=== PATIENT | female | born 1945 | race Caucasian/White ===

== ENCOUNTER 2016-08-02 17:08 | Inpatient (IN) | payer OTHER ==
[~2016-08-02] VITALS: Ht 152.4 cm; Wt 72.6 kg
[~2016-08-02 17:08] MED LIST: ALBUTEROL0.09 MG/A1 INH; COZAAR100 M1 PO; CRESTOR20 M2 PO; DILTIAZEM 24HR240 MG PO; FUROSEMIDE40 M1 PO; GLUCOPHAGE850 MG PO; LOPRESSOR50 M1 PO; METHIMAZOLE5 M1 PO; SYMBICORT 160/41 PUF IH; TESSALON PERLE100 MG PO; VITAMIN B11000 MCG/M PO; XARELTO20 M2 PO; ZITHROMAX Z-PA250 M1 PO
--- NOTE | 2016-08-02 17:09 | NUR ---
INFORMED WAITING PERFORMED.
--- NOTE | 2016-08-02 17:43 | NUR ---
PT TO TRIAGE WITH C/O DRY COUGH, HEADACHE, CONGESTIONS, CHEST TIGHTNESS WHEN COUGHING 04/04, SOB FOR 2 DAYS. TEMP 102.0 IN TRIAGE. O2SAT 88% ON RA. PT PLACED ON O2 NC 2L WITH O2SAT IMPROVEMENT 91%. PT MEDICATED WITH TYLENOL 650MG PO IN TRIAGE AND BROUGHT TO [facility] FOR EKG AND BLOOD WORK. HX OF HTN,DIABETES,BRONCHITIS.
--- NOTE | 2016-08-02 17:56 | NUR ---
EKG AND LABS DONE IN [place] (BLUE,SST,LAV,CEJA, BC #1)
--- NOTE | 2016-08-02 18:01 | ED GENERAL ADULT ---
History of Present Illness General Chief Complaint: Upper Respiratory Sx/Fever Stated Complaint: COLD SXS Source: patient, family, old records Exam Limitations: language barrier Vital Signs & Intake/Output Vital Signs & Intake/Output Vital Signs Date Time Temp Pulse Resp B/P Pulse O2 O2 Flow FiO2 Ox Delivery Rate 08/03 1159 Nasal 1.0L Cannula 08/03 09 95 Nasal 2.0L Cannula 08/03 08 97.3 76 20 124/78 92 Nasal 2.0L Cannula 08/03 0000 Nasal 2.0L Cannula 08/02 2230 97.6 118 20 126/92 95 Nasal 2.0L Cannula 08/02 2210 94 Nasal 2.0L Cannula 08/02 2042 97.6 105 16 123/75 95 Nasal 2.0L Cannula 08/02 1914 99.3 101 16 153/79 95 Nasal 3.0L Cannula 08/02 1837 94 Nasal 2.0L Cannula 08/02 1831 98.7 113 20 179/87 90 Nasal 3.0L Cannula 08/02 1820 95 Nasal 2.0L Cannula 08/02 1745 102.0 08/02 1737 102.0 106 24 159/91 88 Room Air ED Intake and Output 08/03 0000 08/02 1200 Intake Total 300 Output Total Balance 300 Intake, Oral 300 Patient 160 lb Weight Allergies Coded Allergies: NO KNOWN ALLERGIES (06/13/14) Triage Note: PT TO TRIAGE WITH C/O DRY COUGH, HEADACHE, CONGESTIONS, CHEST TIGHTNESS WHEN COUGHING 04/04, SOB FOR 2 DAYS. TEMP 102.0 IN TRIAGE. O2SAT 88% ON RA. PT PLACED ON O2 NC 2L WITH O2SAT IMPROVEMENT 91%. PT MEDICATED WITH TYLENOL 650MG PO IN TRIAGE AND BROUGHT TO [place] FOR EKG AND BLOOD WORK. HX OF HTN,DIABETES,BRONCHITIS. Triage Nurses Notes Reviewed? yes HPI: Patient is a 71-year-old female brought in by her family for evaluation of cough , shortness of breath, fevers. Symptoms 2 days. Cough is nonproductive. Fever of 101F at home. Patient reportedly received her influenza vaccination. Chest tightness with cough. Positive dyspnea. Denies sick contacts, abdominal pain, nausea, vomiting. (DE SÁNCHEZ,MAX) Reconcile Medications Albuterol Sulfate (Proair Hfa) 90 MCG HFA.AER.AD 2 PUF INH Q4H PRN SOB/ WHEEZING (Reported) Alendronate Sodium (Fosamax) 70 MG TABLET 1 TAB PO QWED BONES (Reported) in the morning, at least 30 minutes before the first food, beverage, or medication of the day Diltiazem HCl (Diltiazem 24HR ER) 240 MG CAP.ER.24H 1 CAP PO DAILY HEART/BP ( Reported) Ergocalciferol (Vitamin D2) (Vitamin D2) 50,000 UNIT CAPSULE 1 CAP PO QFRI SUPPLEMENT (Reported) Fluticasone Propionate (Flovent Hfa) 220 MCG AER.W.ADAP 1 PUFF INH BID RESPIRATORY (Reported) Furosemide 40 MG TABLET 1 TAB PO DAILY DIURETIC (Reported) Losartan (Cozaar) 100 MG TABLET 1 TAB PO QHS BP (Reported) Metformin HCl 500 MG TABLET 1 TAB PO BID DM (Reported) Methimazole 5 MG TABLET 1 TAB PO DAILY THYROID (Reported) Metoprolol Tartrate (Lopressor) 50 MG TABLET 1.5 TAB PO BID HEART/BP ( Reported) Rivaroxaban (Xarelto) 20 MG TABLET 1 TAB PO DAILY BLOOD THINNER (Reported) with food Rosuvastatin Calcium (Crestor) 20 MG TABLET 1 TAB PO QPM CHOLESTEROL ( Reported) (CALLI GRIMES,RIAZ) Past History Travel History Traveled to [place] past 21 day No Medical History Any Pertinent Medical History? 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 No (DE SÁNCHEZ,MAX) Review of Systems Review of Systems Constitutional: Reports: chills, fever, malaise. EENTM: Reports: no symptoms. Respiratory: Reports: see HPI. Cardiovascular: Reports: chest pain (with cough). GI: Denies: abdominal pain, nausea, vomiting. Musculoskeletal: Reports: no symptoms. Skin: Denies: rash. Neurological/Psychological: Reports: no symptoms. Denies: headache. Hematologic/Endocrine: Denies: bruising, bleeding. Immunologic/Allergic: Denies: splenectomy. (MAX CONNELLY) Physical Exam Physical Exam General Appearance: alert, awake Head: atraumatic, normal appearance Eyes: Bilateral: normal appearance. Ears, Nose, Throat: normal pharynx, normal ENT inspection, hearing grossly normal Neck: normal inspection, supple, full range of motion Respiratory: diffuse moderate expiratory wheezing. Bibasilar rhonchi. Cardiovascular: tachycardia, irregularly irregular Peripheral Pulses: 2+ dorsalis pedis (R), 2+ dorsalis pedis (L) Gastrointestinal: soft, non-tender Back: normal inspection, normal range of motion Extremities: normal inspection, normal capillary refill, normal range of motion, no edema Neurologic/Psych: no motor/sensory deficits, awake, alert, oriented x 3, normal mood/affect Skin: intact, normal color, warm/dry Lymphatic: no anterior cervical kina Core Measures ACS in differential dx? No CVA/TIA Diagnosis: No Severe Sepsis Present: No Septic Shock Present: No (MAX CONNELLY) Progress Differential Diagnoses I considered the following diagnoses in my evaluation of the patient: Pneumonia, bronchitis, sepsis Plan of Care: Orders Procedure Date/time Status Consistent Carbohydrate 3 08/04 B Active CBC WITHOUT DIFFERENTIAL 08/04 599 Active BASIC ELECTROLYTES PLUS BUN&CR 08/04 599 Active Heart Healthy Diet 08/03 B Active RT: Reevaluation 08/03 843 Active RT: Evaluation 08/03 843 Active TRC EVALUATION (GEN) 08/03 9 Complete Saline Lock 08/03 9 Active Pathway - chart 08/03 9 Active House Staff 08/03 9 Active VTE Mechanical Prophylaxis 08/03 9 Active Vital Signs 08/03 9 Complete CULTURE,URINE 08/03 9 Active STREP PNEUMO URINARY ANTIGEN 08/03 9 Active LEGIONELLA URINARY ANTIGEN 08/03 9 Active LOWER RESPIRATORY CULTURE 08/03 9 Active URINALYSIS 08/03 9 Complete Code Status 08/03 9 Active THERAPIST ORDERS 08/03 UNK Complete OXYGEN SETUP (GEN) 08/03 UNK Complete Lab Add-on Test 08/03 UNK Active PHARMACY COMMUNICATION FORM 08/03 UNK Active FingerStick- Glucose 08/02 2228 Active Vital Signs 08/02 2199 Active Teach/Educate 08/02 2199 Active Nutritional Intake, Monitor 08/02 2199 Active Isolation 08/02 2199 Active Intake & Output 08/02 2199 Active Patient Care Conference 08/02 2199 Active Activity/Ambulation 08/02 2199 Active LACTIC ACID 08/02 2044 Complete Patient Data 08/02 1916 Active Admit to inpatient 08/02 1915 Active Vital Signs 08/02 1915 Active Code Status 08/02 1915 Complete Intake & Output 08/02 1824 Active BLOOD CULTURE 08/02 1810 Active VIRAL CULTURE 08/02 180 Active RAPID VIRAL INFLUENZA A 08/02 1800 Complete THYROID STIMULATING HORMONE 08/02 1745 Complete TOTAL IRON BINDING CAPACITY 08/02 1745 Complete THYROXINE 08/02 1745 Complete FERRITIN 08/02 1745 Complete SERUM IRON 08/02 1745 Complete BLOOD CULTURE 08/02 1744 Active LACTIC ACID 08/02 1744 Complete COMPREHENSIVE METABOLIC PANEL 08/02 1744 Complete CBC WITHOUT DIFFERENTIAL 08/02 174 Complete EKG 08/02 174 Active Current Medications Sig/Diana Start time Last Medication Dose Stop Time Status Admin Alendronate Sodium 70 MG QWED 08/05 0700 AC (Fosamax) Azithromycin 500 MG 08/03 AC (Zithromax) Sodium Chloride 250 ML (Normal Saline 0.9%) Ceftriaxone Sodium 1,000 MG 19308/03 193 AC (Rocephin) Atorvastatin Calcium 80 MG 17008/03 170 AC (Lipitor) Fluticasone 1 PUF BID 08/03 1000 AC Propionate (Flovent) Ibuprofen 600 MG Q6P PRN 08/03 0015 AC (Motrin) Laboratory Tests 08/03/16 0840: Urinalysis LIGHT H, Urine Color YEL, Urine Clarity HAZY H, Urine pH 6.0, Ur Specific Thayer >= 1.030, Urine Protein TRACE H, Urine Ketones NEG, Urine Nitrite NEG, Urine Bilirubin NEG, Urine Urobilinogen 0.2, Ur Leukocyte Esterase NEG, Ur Microscopic SEDIMENT EXAMINED, Urine RBC 1-3, Urine WBC RARE, Ur Epithelial Cells MOD H, Hyaline Casts RARE H, Granular Casts RARE H, Urine Mucus MANY H, Urine Hemoglobin NEG, Urine Glucose >=1000 H 08/02/16 2051: Lactic Acid 1.5 08/02/161806: Virus Culture Pending 08/02/16 1745: Anion Gap 17 H, Estimated GFR > 60, BUN/Creatinine Ratio 16.7, Glucose 216 H, Lactic Acid 2.2 H, Calcium 9.5, Iron 24 L, TIBC 430, Ferritin 42.5, Total Bilirubin 0.4, AST 20, ALT 26, Alkaline Phosphatase 71, Total Protein 7.5, Albumin 4.3, Globulin 3.2, Albumin/Globulin Ratio 1.3, TSH 1.470, Thyroxine (T4) 7.9, CBC w Diff NO MAN DIFF REQ, RBC 5.96 H, MCV 66.3 L, MCH 20.8 L, RDW 14.7 H, MPV 8.3, Gran % 76.5 H, Lymphocytes % 14.6 L, Monocytes % 8.2, Eosinophils % 0.5, Basophils % 0.2, Absolute Granulocytes 4.8, Absolute Lymphocytes 0.9 L, Absolute Monocytes 0.5, Absolute Eosinophils 0, Absolute Basophils 0, PUBS MCHC 31.4 L Microbiology 08/03 839 URINE ROUT: Legionella Antigen - RES 08/03 839 URINE ROUT: Streptococcus pneumoniae Antigen (M - RES 08/03 839 URINE ROUT: Urine Culture - RES 08/03 9 LOWER RESP: Respiratory Culture - COLB 08/03 9 LOWER RESP: Gram Stain - COLB 08/02 1814 BLOOD: Blood Culture - RES 08/02 174 BLOOD: Blood Culture - RES Discussed with and seen by Dr. Elmore. Clinically consistent with pneumonia. IV antibiotics ordered with x-ray pending. 1850: Mild improvement in breathing. Discussed results with patient and her family and disposition. Discussed with Dr. Peraza for admission to general medicine (DE SÁNCHEZ,MAX) Diagnostic Imaging: Viewed by Me: Radiology Read. Discussed w/RAD: Radiology Read. Radiology Impression: PATIENT: MEGHA NDIAYE PRESENT AGE: 71 PATIENT ACCOUNT NO: [id number] : 46 LOCATION: [facility] ORDERING PHYSICIAN: MAX SÁNCHEZ SERVICE DATE: 08/02/16 EXAM TYPE: RAD - XRY-PORTABLE CHEST XRAY EXAMINATION: XR PORTABLE CHEST CLINICAL INFORMATION: Cough, dyspnea, fever and rhonchi COMPARISON: 10/22/2015 TECHNIQUE: This is a portable upright view of the chest somewhat degraded by motion artifact. FINDINGS: There is an ill-defined patchy opacity at the left base. This is consistent with pneumonia given the history provided. Short interval follow-up is required to assure resolution. Stable prominence of the cardiac silhouette. IMPRESSION: Patchy opacity at the left lung base suspicious for pneumonia DICTATED BY: KENN ESPINAL MD DATE/TIME DICTATED:08/02/161855 AUDIO VISUAL TECHNICIAN: JANA DATE/TIME TRANSCRIBED:08/02/161855 CONFIDENTIAL, DO NOT COPY WITHOUT APPROPRIATE AUTHORIZATION. <Electronically signed in Other Vendor System> SIGNED BY: KENN ESPINAL MD 08/02/16 190 Initial ED EKG: atrial fibrillation, with rvr Rhythm Strip: atrial fibrillation (MAX CONNELLY) Departure Departure Disposition: STILL A PATIENT Condition: Stable Clinical Impression Primary Impression: Community acquired pneumonia Referrals: MONIQUE JONES MD (PCP/Family) Departure Forms: Customer Survey General Discharge Information Admission Note Sp[facility] Documentation of Exam: Documentation of any treatments & extenuating circumstances including Concerns Regarding Discharge (functional status, medication knowledge or non-compliance, living conditions, etc.) that warrant an admission rather than observation: IV antibiotics, total respiratory care, supplemental oxygen, consider pulmonary consultation given history of pulmonary hypertension (MAX CONNELLY) PA/DIRECTOR FIXED INCOME Co-Sign Statement Statement: ED Attending supervision documentation- [X] I saw and evaluated the patient. I have also reviewed all the pertinent lab results and diagnostic results. I agree with the findings and the plan of care as documented in the PA's/DIRECTOR FIXED INCOME's documentation. [X] I have reviewed the ED Record and agree with the PA's/DIRECTOR FIXED INCOME's documentation. [] Additions or exceptions (if any) to the PAs/DIRECTOR FIXED INCOME's note and plan are summarized below: [] (CALLI GRIMES,RIAZ) Critical Care Note Critical Care Note Critical Care Time: non-applicable (MAX CONNELLY)
[2016-08-02 18:03] LABS: ABSOLUTE BASOPHIL COUNT 0 /CUMM (0.0-0.2); ABSOLUTE EOSINOPHIL COUNT 0 /CUMM (0.0-0.7); ABSOLUTE GRANULOCYTE CT 4.8 /CUMM (1.4-6.5); ABSOLUTE LYMPH COUNT 0.9 /CUMM (1.2-3.4); ABSOLUTE MONOCYTE COUNT 0.5 /CUMM (0.10-0.60); BASOPHIL % 0.2 % (0.0-2.0); EOSINOPHIL % 0.5 % (0-5); GRANULOCYTE % 76.5 % (42.2-75.2); HEMATOCRIT 39.5 % (37-47); MEAN CORPUSCULAR HGB 20.8 PG (27.0-31.0); MEAN CORPUSCULAR HGB CONC 31.4 G/DL (33.0-37.0); MEAN CORPUSCULAR VOLUME 66.3 FL (81.0-99.0); MEAN PLATELET VOLUME 8.3 FL (7.4-10.4); PLATELET COUNT 185 /CUMM (130-400); RBC DISTRIBUTION WIDTH 14.7 % (11.5-14.5); RED BLOOD CELL CT 5.96 /CUMM (4.20-5.40); WHITE BLOOD CELL COUNT 6.2 /CUMM (4.8-10.8)
--- NOTE | 2016-08-02 18:23 | NUR ---
CRITICAL TEST RESULTS [id number] MEGHA NDIAYE 71 F TESTS AND RESULTS: LACTIC 2.2 Results received and read back by: TIM PEREZ Results received date and time: 08/02/161823 The following provider was notified of the results, and read the results back: PRINCESS KC Notified date and time: 08/02/16 at 1823
--- NOTE | 2016-08-02 18:23 | NUR ---
IV ESTABLISHED. CULTURES DRAWN AND SENT. MEDICATED WITH SOLUMEDROL PER eMAR. FLU SWAB ALSO SENT. RT AT BEDSIDE FOR DUONEB
--- NOTE | 2016-08-02 19:01 | RADIOLOGY REPORT ---
EXAMINATION: XR PORTABLE CHEST CLINICAL INFORMATION: Cough, dyspnea, fever and rhonchi COMPARISON: 10/22/2015 TECHNIQUE: This is a portable upright view of the chest somewhat degraded by motion artifact. FINDINGS: There is an ill-defined patchy opacity at the left base. This is consistent with pneumonia given the history provided. Short interval follow-up is required to assure resolution. Stable prominence of the cardiac silhouette. IMPRESSION: Patchy opacity at the left lung base suspicious for pneumonia
[2016-08-02] MEDS ORDERED: VITAMIN D250000 UNIT PO (19:15)
[2016-08-02] MEDS ORDERED: METFORMIN HCL500 M3 PO (19:16)
[2016-08-02] MEDS ORDERED: FLOVENT HFA12 GM INH (19:17)
[2016-08-02] MEDS ORDERED: FOSAMAX70 M1 PO (19:17)
[2016-08-02] MEDS ORDERED: PROAIR HFA8.5 GM INH (19:17)
--- NOTE | 2016-08-02 19:22 | NUR ---
ROCEPHIN TOLERATED. MEDICATED WITH ZITHRO GTT RUNNING AT 250ML/HR PER eMAR. NO ACUTE DISTRESS AT THIS TIME. TEMP IMPROVED 99.3 AT THIS TIME. PRINCESS KC TO BEDSIDE TO DISCUSS PLAN OF CARE
--- NOTE | 2016-08-02 20:54 | NUR ---
REPEAT LACTIC DRAWN AND SENT
--- NOTE | 2016-08-02 21:20 | History & Physical ---
VENICE UGALDE MD 08/02/162118: General Information and HPI MD Statement: I have seen and personally examined MEGHA NDIAYE and documented this H&P. The patient is a 71 year old F who presented with a patient stated chief complaint of [short of breath and fever]. Source of Information: patient, family Exam Limitations: no limitations, language barrier History of Present Illness: 71-year-old female with PMH of HTN, HLD, osteoporosis, DM, atrial fibrillation on xarelto, hyperthyroidism, presented with worsening shortness of breath and fever over the last 2 days. She has dry cough, headache, congestion, chest tightness when she coughs, rated as 9/10. Her temp was 101 at home. She also had chills, weakness, decreased appetite. As pt is non-tamazight speaking, I spoke to her son, Tr, over the phone, . He does not know why she is on the breathing treatment, and does not remember the casting assistant she follows up with. She follows up with Dr. Agatha Sanchez for cardiology. She lives at home with her son, daughter in law, and grandchildren. She does not have health services at home, and not on home oxygen. She is independent at baseline. Allergies/Medications Allergies: Coded Allergies: NO KNOWN ALLERGIES (06/13/14) Home Med list Albuterol Sulfate (Proair Hfa) 90 MCG HFA.AER.AD 2 PUF INH Q4H PRN SOB/ WHEEZING (Reported) Alendronate Sodium (Fosamax) 70 MG TABLET 1 TAB PO QWED BONES (Reported) in the morning, at least 30 minutes before the first food, beverage, or medication of the day Diltiazem HCl (Diltiazem 24HR ER) 240 MG CAP.ER.24H 1 CAP PO DAILY HEART/BP ( Reported) Ergocalciferol (Vitamin D2) (Vitamin D2) 50,000 UNIT CAPSULE 1 CAP PO QFRI SUPPLEMENT (Reported) Fluticasone Propionate (Flovent Hfa) 220 MCG AER.W.ADAP 1 PUFF INH BID RESPIRATORY (Reported) Furosemide 40 MG TABLET 1 TAB PO DAILY DIURETIC (Reported) Losartan (Cozaar) 100 MG TABLET 1 TAB PO QHS BP (Reported) Metformin HCl 500 MG TABLET 1 TAB PO BID DM (Reported) Methimazole 5 MG TABLET 1 TAB PO DAILY THYROID (Reported) Metoprolol Tartrate (Lopressor) 50 MG TABLET 1.5 TAB PO BID HEART/BP ( Reported) Rivaroxaban (Xarelto) 20 MG TABLET 1 TAB PO DAILY BLOOD THINNER (Reported) with food Rosuvastatin Calcium (Crestor) 20 MG TABLET 1 TAB PO QPM CHOLESTEROL ( Reported) Past History Travel History Traveled to [place] past 21 day No Medical History Neurological: NONE EENT: NONE Cardiovascular: AFIB, hypertension, hyperlipidemia Respiratory: bronchitis, pulmonary hypertension Gastrointestinal: NONE Hepatic: NONE Renal: NONE Musculoskeletal: NONE Psychiatric: NONE Endocrine: diabetes, hyperthyroidism Blood Disorders: NONE 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 Home Who Do You Live With? child Services at Home: None Primary Language: Mohawk Functional Ability ADLs Independent: dressing, eating, toileting, bathing. Ambulation: independent IADLs Independent: shopping, housework, finances, food prep, telephone, transportation , medication admin. Review of Systems Review of Systems Constitutional: Reports: chills, fever, weakness. Cardiovascular: Reports: chest pain. Respiratory: Reports: cough, short of breath. Denies: sputum production. GI: Denies: abdominal pain, bloating, constipation, diarrhea, nausea, vomiting. Genitourinary: Denies: dysuria. Exam & Diagnostic Data Last 24 Hrs of Vital Signs/I&O Vital Signs Date Time Temp Pulse Resp B/P Pulse O2 O2 Flow FiO2 Ox Delivery Rate 08/02 2229 97.6 118 20 126/92 95 Nasal 2.0L Cannula 08/02 2209 94 Nasal 2.0L Cannula 08/02 2041 97.6 105 16 123/75 95 Nasal 2.0L Cannula 08/02 1914 99.3 101 16 153/79 95 Nasal 3.0L Cannula 08/02 1837 94 Nasal 2.0L Cannula 08/02 183 98.7 113 20 179/87 90 Nasal 3.0L Cannula 08/02 1820 95 Nasal 2.0L Cannula 08/02 1745 102.0 08/02 1737 102.0 106 24 159/91 88 Room Air Intake & Output 08/03 0800 08/03 0000 08/02 1600 Intake Total 300 Output Total Balance 300 Intake, Oral 300 Patient 72.575 kg Weight Physical Exam General Appearance Alert, Oriented X3, Cooperative, No Acute Distress, diaphoretic Skin No Significant Lesion HEENT Atraumatic, PERRLA, EOMI, Mucous Membr. moist/pink Cardiovascular Regular Rate, No Murmurs, irregular rate, tachycardic Lungs Clear to Auscultation Abdomen Normal Bowel Sounds, Soft, No Tenderness Neurological Normal Speech Extremities No Edema Vascular Normal Pulses Last 24 Hrs of Labs/Mateusz: Laboratory Tests 08/02/162050: Lactic Acid 1.5 08/02/165: Anion Gap 17 H, Estimated GFR > 60, BUN/Creatinine Ratio 16.7, Glucose 216 H, Lactic Acid 2.2 H, Calcium 9.5, Total Bilirubin 0.4, AST 20, ALT 26, Alkaline Phosphatase 71, Total Protein 7.5, Albumin 4.3, Globulin 3.2, Albumin/Globulin Ratio 1.3, CBC w Diff NO MAN DIFF REQ, RBC 5.96 H, MCV 66.3 L, MCH 20.8 L, RDW 14.7 H, MPV 8.3, Gran % 76.5 H, Lymphocytes % 14.6 L, Monocytes % 8.2, Eosinophils % 0.5, Basophils % 0.2, Absolute Granulocytes 4.8, Absolute Lymphocytes 0.9 L, Absolute Monocytes 0.5, Absolute Eosinophils 0, Absolute Basophils 0, PUBS MCHC 31.4 L Microbiology 08/03 9 URINE ROUT: Legionella Antigen - ORD 08/03 9 URINE ROUT: Streptococcus pneumoniae Antigen (M - ORD 08/03 9 URINE ROUT: Urine Culture - ORD 08/03 9 LOWER RESP: Respiratory Culture - ORD 08/03 9 LOWER RESP: Gram Stain - ORD 08/02 181 BLOOD: Blood Culture - RECD 08/02 174 BLOOD: Blood Culture - RECD Diagnostic Data EKG Results atrial fibrillation,rate 104 CXR Results IMPRESSION: Patchy opacity at the left lung base suspicious for pneumonia Assessment/Plan Assessment: 71-year-old female with PMH of HTN, HLD, osteoporosis, DM, atrial fibrillation on xarelto, hyperthyroidism, presented with worsening shortness of breath and fever over the last 2 days. CXR shows patchy opacity at the left lung base suspicious for pneumonia. Admitted to , with the following problems addressed: # Left lung base pneumonia - Given 1 X ceftriaxone and azithromycin in the ED - Given 1 X solumedrol, atrovent, and proventil in ED * Continue azithromycin and ceftriaxone * Follow BCX2, sputum cx and gram stain, UA, UC, urine legionella, strep pneumo, rapid flu # HTN, atrial fibrillation * Continue diltiazem 240 ER daily * Continue metoprolol 75 bid * Continue losartan 100 daily * continue furosemide 40 daily * Continue xarelto # Osteoporosis * [place] [address] units q wednesday * Continue alendronate 70 q wed # Hyperlipidemia * Continue statin # Diabetes mellitus - on metformin at home * Accucheck * Consider checking hba1c * Insulin ss in the hospital # Hyperthyroidism * Consider checking tsh, ft4 * Continue methimazole Diet: CC 3 DVT ppx: mech and pharm FULL CODE Contact Tr, her son, at [phone] for questions or updates As Ranked By This Provider Problem List: 1. Community acquired pneumonia Core Measures/Miscellaneous Acute Coronary Syndrome ACS Diagnosis: No Cerebrovascular Accident CVA/TIA Diagnosis: No Congestive Heart Failure CHF Diagnosis: No Venous Thromboembolism VTE Risk Factors: Acute medical illness, Age > 40 VTE Prophylaxis Ordered Inpt: Mech & Pharm No Mech VTE prophylaxis d/t: No contraindications No VTE Pharm Prophylaxis d/t: No contraindications VTE Diagnosis: No VTE Type: NONE VTE Confirmed by (Test): NONE Severe Sepsis Severe Sepsis Present: No Septic Shock Septic Shock Present: No Miscellaneous Documentation Attending Case Discussed With: DAWSON PERAZA MD Primary Care Physician: MONIQUE JONES MD Patient sees these Specialists Dr Garcia cardiology Level of Patient Care: General Medicine ESPINOZA PERAZA MD 08/02/16 0728: Attending MD Review Statement Attending Statement Attending MD Statement: examined this patient, discuss w/resident/PA/LABORER YARD, agreed w/resident/PA/LABORER YARD Attending Assessment/Plan: 71 yo Mohawk speaking F with h/o HTN, asthma, T2DM, Afib s/p cardioversion on xarelto, pulmonary hypertension, is here with productive cough, fever, congestion and chest tightness. Limited history. She was hypoxic to 88% on RA ? 95% on 2L, Tmax 102, HR 118, BP stable. Chest left basilar rhonchi, no crackles. Labs: microcytosis disproportionate to Hct, no leukocytosis, AG 17, lactic acid 2.2 --> 1.5, CXR s/o patchy opacity left lung base. Echo (2013): EF > 55%, mod TR, RVSP 50 mmHg. EKG: Afib. 1. Acute hypoxic respiratory failure and sepsis 2/2 left lower lobe pneumonia likely community acquired. TRC nebs, panculture, rapid flu neg, IV ceftriaxone and azithro, IV fluids. 2. Microcytosis out of proportion to Hct (39): check iron studies, guaiac all stools. ?thalassemia. 3. Afib with HR in 110's. Resume cardizem and metoprolol. Check TSH, patient has h/o hyperthyroidism and is on methimazole. If persistently tachycardic, ? consider CTA to rule out PE. DVT ppx xarelto. Full code. Confirm CMR in AM. SURENDRAJIGNESH 08/03/16 0548: Resident Review Statement Resident Statement: examined this patient, discussed with internal audit manager, agreed with internal audit manager, discussed with family, reviewed EMR data (avail), reviewed images, amended to note Other Findings: This is 71-year-old female with past medical history hypertension, hyperlipidemia, diabetes mellitus, atrial fibrillation Xarelto, hypothyroidism, presented to emergency departments with a chief complaint of fever and productive cough that is associated with nasal congestion and chest tightness. We spoke to her son Tr, over the phone, also stated that her temperature at home was measured 101.0. He was asked to bring her medication list and we discussed the plan of care with him. Physical examination, laboratory as above. Problem list: -Community-acquired pneumonia -Lactic acidosis, anion gap acidosis -History of atrial fibrillation on Xarelto Plan: -Admit patient to general medicine floor -Vitals every shift -Start the patient on IV ceftriaxone and azithromycin -Send Streptococcus, Legionella urine antigen -Sputum and blood culture, urine analysis -Normal saline fluid hydration and 75 mg/h -TRC and nebs as needed -Accu-Chek, insulin sliding scale hold metformin -Carbohydrate consistent diet -Pain pathway -DVT prophylaxis: Xarelto -Full code
--- NOTE | 2016-08-02 21:23 | NUR ---
PT BED ASSIGNMENT 185-1
--- NOTE | 2016-08-02 21:47 | NUR ---
REPORT GIVEN TO RECEIVING RN AND DISTRIBUTION CALLED
[2016-08-02 22:30] VITALS: BP 126/92
--- NOTE | 2016-08-03 00:35 | Admission Certification ---
Admission Certification Certification Statement - As attending physician, I certify that at the time of - admission, based on clinical presentation, severity of - symptoms, need for further diagnostic testing and - therapeutic interventions, and risk of adverse outcomes - without in-hospital treatment, in my clinical assessment, - this patient requires an acute hospital stay for a minimum - of two nights or longer. I have also considered psychsocial - factors such as support system, advanced age, financial - issues, cognitive issues, and failed out-patient treatments, - past re-admission history, safety of patient, and lack of - compliance as applicable. Specific rationale supporting this admission is: Acute hypoxic respiratory failure, sepsis 2/2 left lower lobe pneumonia.
--- NOTE | 2016-08-03 07:47 | PN- Housestaff ---
ELISABETH HERNANDEZ 08/03/16 0747: Subjective Follow-up For: 1. acute Hypoxic respiratory failure secondary to left lower lobe pneumonia 2 macrocytosis. #3 history of atrial fibrillation. #4 history of hyperthyroidism Complaints: no complaints Subjective: I Have seen and examined the patient today morning, she is lying on the bed and complaining off bilateral abdominal pain, the pain is worse when she coughs, this pain most likely seems to be related to recurrent coughing, no abdominal tenderness, bowel sounds present. Vitals have remained stable overnight, she has remained afebrile, she continues to be on 2 L of nasal cannula she is saturating 94-95%. Review of Systems Constitutional: Denies: chills, diaphoresis, fever, malaise, weakness. EENTM: Reports: no symptoms. Cardiovascular: Denies: chest pain, edema, orthopena, palpitations. Respiratory: Reports: cough, short of breath. Denies: hemoptysis, orthopnea, sputum production, stridor, wheezing. Gastrointestinal: Denies: abdominal pain, bloating, constipation, diarrhea. Genitourinary: Denies: discharge, dysuria, frequency, hematuria. Musculoskeletal: Reports: no symptoms. Skin: Reports: no symptoms. Neurological/Psychological: Reports: no symptoms. Hematologic/Endocrine: Reports: no symptoms. Objective Last 24 Hrs of Vital Signs/I&O Vital Signs Date Time Temp Pulse Resp B/P Pulse O2 O2 Flow FiO2 Ox Delivery Rate 08/03 1720 94 Nasal 2.0L Cannula 08/03 1559 98.0 76 17 112/70 94 Nasal 1.5L Cannula 08/03 1159 Nasal 1.0L Cannula 08/03 911 95 Nasal 2.0L Cannula 08/03 08 97.3 76 20 124/78 92 Nasal 2.0L Cannula 08/03 0000 Nasal 2.0L Cannula 08/02 2230 97.6 118 20 126/92 95 Nasal 2.0L Cannula 08/02 2210 94 Nasal 2.0L Cannula 08/02 2042 97.6 105 16 123/75 95 Nasal 2.0L Cannula Intake & Output 08/03 1600 08/03 0800 08/03 0000 Intake Total 600 650 300 Output Total 600 Balance 0 650 300 Intake, IV 200 600 Intake, Oral 400 50 300 Output, Urine 600 Patient 72.575 kg Weight Physical Exam General Appearance: Alert, Oriented X3, Cooperative, No Acute Distress Skin: No Rashes, No Breakdown HEENT: Atraumatic, PERRLA, EOMI Neck: Supple, No JVD Cardiovascular: Regular Rate, Normal S1, Normal S2, No Murmurs Lungs: Clear to Auscultation, Normal Air Movement Abdomen: Normal Bowel Sounds, Soft, No Tenderness Neurological: Strength at 5/5 X4 Ext, Normal Tone, Sensation Intact, Cranial Nerves 3-12 NL Extremities: No Clubbing, No Cyanosis, No Edema, Normal Pulses Vascular: Normal Pulses Current Medications: Current Medications Sig/Diana Start time Last Medication Dose Route Stop Time Status Admin Acetaminophen 650 MG Q6P PRN 08/03 0015 AC 08/03 PO 1020 Albuterol Sulfate 3 ML BID 08/03 1215 AC 08/03 INH 1205 Alendronate Sodium 70 MG QWED 08/05 0700 AC PO Atorvastatin Calcium 80 MG 1700 08/03 1700 AC 08/03 PO 1624 Azithromycin 500 MG 2200 08/03 2200 AC Sodium Chloride 250 ML IV Azithromycin 500 MG DAILY 08/03 1000 DC Sodium Chloride 250 ML IV Ceftriaxone Sodium 1,000 MG 1930 08/03 1930 AC 08/03 IV 1624 Ceftriaxone Sodium 1,000 MG DAILY 08/03 1000 DC IV Diltiazem HCl 240 MG DAILY 08/03 1000 AC 08/03 PO 1013 Fluticasone 1 PUF BID 08/03 1000 AC Propionate INH Furosemide 40 MG DAILY 08/03 1000 AC 08/03 PO 1013 Ibuprofen 600 MG Q6P PRN 08/03 0015 AC PO Insulin Aspart 0 TIDAC 08/03 0800 AC 08/03 SC 1303 Losartan Potassium 100 MG 2200 08/03 0045 AC 08/03 PO 0304 Methimazole 5 MG DAILY 08/03 1000 AC 08/03 PO 1013 Metoprolol Tartrate 75 MG BID 08/03 1000 AC 08/03 PO 1013 Rivaroxaban 20 MG DAILY 08/03 1000 AC 08/03 PO 1013 Sodium Chloride 1,000 ML .[id number] 08/03 0015 DC 08/03 IV 0032 Last 24 Hrs of Lab/Mateusz Results Last 24 Hrs of Labs/Mics: Laboratory Tests 08/03/16 0840: Urinalysis LIGHT H, Urine Color YEL, Urine Clarity HAZY H, Urine pH 6.0, Ur Specific Pryor >= 1.030, Urine Protein TRACE H, Urine Ketones NEG, Urine Nitrite NEG, Urine Bilirubin NEG, Urine Urobilinogen 0.2, Ur Leukocyte Esterase NEG, Ur Microscopic SEDIMENT EXAMINED, Urine RBC 1-3, Urine WBC RARE, Ur Epithelial Cells MOD H, Hyaline Casts RARE H, Granular Casts RARE H, Urine Mucus MANY H, Urine Hemoglobin NEG, Urine Glucose >=1000 H 08/02/161: Lactic Acid 1.5 Microbiology 08/03 839 URINE ROUT: Legionella Antigen - RES 08/03 839 URINE ROUT: Streptococcus pneumoniae Antigen (M - RES 08/03 839 URINE ROUT: Urine Culture - RES 08/03 9 LOWER RESP: Respiratory Culture - COLB 08/03 9 LOWER RESP: Gram Stain - COLB Lines/Diet/Fluids Restraints: none Assessment/Plan Assessment: This 71-year-old Irish speaking female with past medical history of hypertension, hyperlipidemia, osteoporosis, diabetes mellitus, atrial fibrillation on Xarelto, hyperthyroidism on methimazole presented to the emergency department on 08/02/2016 with worsening shortness of breath and fever 2 days prior to admission associated with productive cough, headache, congestion , chest tightness when she coughs, she was found to have a MAXIMUM TEMPERATURE of 102. She also had associated chills weakness and decreased appetite. At the emergency department she was hypoxic to 88% on room air, she was put on 2 L of nasal cannula and she improved to 95%, her maximum temperature was 102, she was tachycardic, blood pressure was stable. On chest x-ray showed patchy opacity of the left lung base which was thought to be most likely secondary to pneumonia. She also had an elevated lactic acid of 2.2 which trended down to 1.1. Her EKG showed atrial fibrillation. Problem list along with assessment and plan. #1 acute hypoxemic respiratory failure, positive sepsis criteria. Patient was tachycardic, had a fever, no white count, chest x-ray showed left lower lobe pneumonia. continue IV ceftriaxone and azithromycin, day 1 today. Continue to follow Blood cultures, sputum cultures and urine cultures. Urine Pneumonia and urine Legionella antigen were negative Continue TRC nebulizations. Rapid flu was negative on admission. Her saturations have remained above 95% on 2 L. #2 history of atrial fibrillation. Patient was found to be in atrial fibrillation on admission as well. Her home medication of Cardizem and metoprolol was continued. She was slightly tachycardic on admission therefore TSH was checked again. TSH was found to be 1.47 and T4 was found to be 7.9, which were both within normal limits. Continue anticoagulation with Xarelto at home dosage. #3 history of hypertension. Continue diltiazem 240 mg extended release daily, continue losartan 100 mg daily , continue furosemide 40 mg daily. #4 history of hyperlipidemia. Continue statin. #5 History of diabetes mellitus. Continue to hold metformin's. Continue monitoring fingerstick. HbA1c was added on ,Ha1c is being sent outside [place] ,therefore taking a while for results. Continue sliding scale insulin while in the hospital. Fingersticks today 185, 160, 252 #6 osteoporosis. Continue vitamin D 50,000 units every Wednesday. Continue alendronate 70 every Wednesday. #7 hyperthyroidism. TSH T4 within normal limits. Continue methimazole at home dosage. DVT prophylaxis with xorelto Continue consistent carbohydrate diet. Patient is full code. Problem List: 1. Community acquired pneumonia Pain Ratin Pain Location: tylenol, motrin Pain Goal: Remain pain free Pain Plan: tyelnol. motrin Tomorrow's Labs & Rationales: cbc, bep DVT/Prophylaxis: pharmacological SYMONE GRIMES,CORY 08/03/16 1519: Attending MD Review Statement Attending Statement Attending MD Statement: examined this patient, discuss w/resident/PA/ZONING ENGINEER, agreed w/resident/PA/ZONING ENGINEER, reviewed EMR data (avail), discussed with nursing, discussed with case mgmt Attending Assessment/Plan: 71-year-old Irish speaking female with past medical history of A. fib on Xarelto, hypertension and diabetes who is here with acute community-acquired pneumonia febrile to 102 with room air sat of 88%. We have her on IV ceftriaxone and Azithro, follow-up cultures, follow up PCP. Her metformin is on hold and will follow the sugars closely.
[2016-08-03 08:26] VITALS: BP 124/78
[2016-08-03 15:59] VITALS: BP 112/70
--- NOTE | 2016-08-03 20:57 | Discharge Summary ---
See Addendum Visit Information Visit Dates Admission Date: 08/02/16 Discharge Date: 08/05/16 Hospital Course Course Attending Physician: SYMONE GRIMES,CORY Alexandre Primary Care Physician: KAREN GRIMES,[facility] Course: This is a 71-year-old Belarusian speaking female with past medical history of hypertension, hyperlipidemia, osteoporosis, diabetes mellitus, atrial fibrillation on Xarelto, hypothyroidism presented to [place] emergency department on 08/02/2016 with chief complaint of worsening shortness of breath and fever 2 days prior to admission so sedated with productive cough, headache, congestion, chest tightness with a MAXIMUM TEMPERATURE of 102. At the emergency department she was hypoxic to 88% on room air, she was put on 2 L and oxygen saturation improved to 95%. Chest x-ray showed patchy opacity of the left lung which was thought to be community-acquired pneumonia. She also had elevated lactic acid of 2.2 which trended down to 1.1. EKG showed atrial fibrillation. Problem list along with assessment and plan. Problem #1 Acute hypoxic respiratory failure, positive sepsis criteria secondary to community acquired pneumonia. * Patient was started on IV ceftriaxone and azithromycin for treatment of community-acquired pneumonia. * Urine Legionella and pneumonia antigens were negative. Blood cultures and urine cultures did not show any growth after day 1. * Rapid flu test was negative. Her saturations continued to improve and she was saturating about 92% on room air on the day of discharge. * TRC nebulizations were continued when necessary. * She was transitioned to by mouth azithomycin and discharged to complete a total of 7 days of antibiotics. Problem #2 History of Atrial Fibrillation * She was continued on home medication of Cardizem and metoprolol, TSH and T4 were rechecked at current admission which were found to be within normal limits. * Anticoagulation with Xarelto was continued. * She continued to remain in A. fib with good rate control less than 100 during hospital stay. Problem #3 history of hypertension. * Patient was continued on diltiazem 240 mg, losartan 40 mg daily, furosemide at home dosage along with statins. Problem #4 history of diabetes mellitus * metformin was held and patient was placed on insulin sliding scale, HbA1c was found to be 6.5. Most of the time the fingersticks were between 150 and 200. Problem #6 osteoporosis. * Patient was continued on vitamin D 50,000 units every Wednesday and alendronate 70 mg given his stay at home dosage. Problem #7 hypothyroidism. * TSH and T4 were within normal limits, patient was continued on methimazole at home dosage. Problem #8 microcytosis. * And was found to have incidental microcytosis with MCV of 66.3, not correlating to his hematocrit which was found to be 39.5. This could be secondary to thalassemia trait. * Stable, outpatient follow-up. Allergies: Coded Allergies: NO KNOWN ALLERGIES (06/13/14) Significant Procedures: SERVICE DATE: 08/02/16-1809 EXAM TYPE: RAD - XRY-PORTABLE CHEST XRAY EXAMINATION: XR PORTABLE CHEST CLINICAL INFORMATION: Cough, dyspnea, fever and rhonchi COMPARISON: 10/22/2015 TECHNIQUE: This is a portable upright view of the chest somewhat degraded by motion artifact. FINDINGS: There is an ill-defined patchy opacity at the left base. This is consistent with pneumonia given the history provided. Short interval follow-up is required to assure resolution. Stable prominence of the cardiac silhouette. IMPRESSION: Patchy opacity at the left lung base suspicious for pneumonia Pertinent Lab Results: Microbiology Date/Time Procedure - Status Source Growth 08/03 839 Legionella Antigen - COMP URINE ROUT 08/03 839 Streptococcus pneumoniae Antigen (M - COMP URINE ROUT 08/03 839 Urine Culture - COMP URINE ROUT 08/03 9 Respiratory Culture - CAN LOWER RESP Cancelled: SPECIMEN NOT RECEIVED IN LABORATORY 08/03 001 Gram Stain - CAN LOWER RESP Cancelled: SPECIMEN NOT RECEIVED IN LABORATORY 08/02 1815 Blood Culture - RES BLOOD 08/02 1745 Blood Culture - RES BLOOD Disposition Summary Disposition Principal Diagnosis: #1. Acute hypoxic respiratory failure secondary to community-acquired pneumonia. #2 microcytosis Additional Diagnosis: #3 history of atrial fibrillation #4 history of hyperthyroidism Discharge Disposition: home or self care Discharge Instructions General Discharge Information Code Status: Full Code Patient's Diet: Consistent carbohydrate 3 Patient's Activity: As tolerated Follow-Up Instructions/Appts: please follow up with your PCP within oNE week of discharge. Please continue taking your medications as prescribed. Medications at Discharge Discharge Medications: Continue taking these medications: Metoprolol Tartrate (Lopressor) 50 MG TABLET 1.5 Tablet ORAL TWICE DAILY Comments: GIVEN 08/05/16 @ 9:30AM Losartan (Cozaar) 100 MG TABLET 1 Tablet ORAL TAKE AT BEDTIME Comments: GIVEN 08/04/16 @ 9:30 PM Furosemide (Furosemide) 40 MG TABLET 1 Tablet ORAL DAILY Comments: GIVEN 08/05/16 @ 9:30AM Methimazole (Methimazole) 5 MG TABLET 1 Tablet ORAL DAILY Comments: GIVEN 08/05/16 @ 09:30 AM Rosuvastatin Calcium (Crestor) 20 MG TABLET 1 Tablet ORAL Every night Comments: GIVEN ATORVASTATIN IN HOSPITAL SUBSTITUTE LAST GIVEN 08/04/16 @ 5PM Diltiazem HCl (Diltiazem 24HR ER) 240 MG CAP.ER.24H 1 Capsule ORAL DAILY Comments: GIVEN 08/05/16 @ 9:30 AM Rivaroxaban (Xarelto) 20 MG TABLET 1 Tablet ORAL DAILY Instructions: with food Comments: GIVEN 08/05/16 @ 9:30AM Ergocalciferol (Vitamin D2) (Vitamin D2) 50,000 UNIT CAPSULE 1 Capsule ORAL EVERY WEDNESDAY Comments: NOT GIVEN IN HOSPITAL Metformin HCl (Metformin HCl) 500 MG TABLET 1 Tablet ORAL TWICE DAILY Comments: NOT GIVEN IN HOSPITAL Alendronate Sodium (Fosamax) 70 MG TABLET 1 Tablet ORAL EVERY WEDNESDAY Instructions: in the morning, at least 30 minutes before the first food, beverage, or medication of the day Comments: GIVEN 08/05/16 @ 6:15 AM Albuterol Sulfate (Proair Hfa) 90 MCG HFA.AER.AD 2 Puff Inhale through mouth Q4H as needed for SOB/WHEEZING Comments: GIVEN 08/04/16 @6:30PM Fluticasone Propionate (Flovent Hfa) 220 MCG AER.W.ADAP 1 PUFF Inhale through mouth TWICE DAILY Comments: GIVEN 08/05/16 @ 9:30 AM Start taking the following new medications: Azithromycin (Azithromycin) 500 MG TABLET 1 Tablet ORAL DAILY Days = 4 No Refills Comments: GIVEN IV AZITHROMYCIN IN HOSPITAL LAST GIVEN 08/04/16 @ 9:30PM Copies To: KAREN GRIMES,MONIQUE Attending MD Review Statement Documenting Attending: SYMONE GRIMES,CORY Alexandre Creatinine (0.5 - 1.0 mg/dL) 0.6 Estimated GFR (>60 ml/min) > 60 BUN/Creatinine Ratio (7 - 25 %) 16.7 Glucose (65 - 99 mg/dL) 216 H Hemoglobin A1c (<5.7) 6.4 H Lactic Acid (0.7 - 2.1 mmol/L) 1.5 2.2 H Calcium (8.4 - 10.2 mg/dL) 9.5 Iron (37 - 170 ug/dL) 24 L TIBC (265 - 497 ug/dL) 430 Ferritin (11.1 - 264 ng/mL) 42.5 Total Bilirubin (0.2 - 1.3 mg/dL) 0.4 AST (14 - 36 U/L) 20 ALT (9 - 52 U/L) 26 Alkaline Phosphatase (<127 U/L) 71 Total Protein (6.3 - 8.2 g/dL) 7.5 Albumin (3.5 - 5.0 g/dL) 4.3 Globulin (1.9 - 4.2 gm/dL) 3.2 Albumin/Globulin Ratio (1.1 - 2.2 %) 1.3 TSH (0.270 - 4.200 uIU/mL) 1.470 Thyroxine (T4) (4.5 - 10.9 ug/dL) 7.9 Hematology CBC w Diff NO MAN DIFF REQ WBC (4.8 - 10.8 /CUMM) 6.2 RBC (4.20 - 5.40 /CUMM) 5.96 H Hgb (12.0 - 16.0 G/DL) 12.4 Hct (37 - 47 %) 39.5 MCV (81.0 - 99.0 FL) 66.3 L MCH (27.0 - 31.0 PG) 20.8 L RDW (11.5 - 14.5 %) 14.7 H Plt Count (130 - 400 /CUMM) 185 MPV (7.4 - 10.4 FL) 8.3 Gran % (42.2 - 75.2 %) 76.5 H Lymphocytes % (20.5 - 51.1 %) 14.6 L Monocytes % (1.7 - 9.3 %) 8.2 Eosinophils % (0 - 5 %) 0.5 Basophils % (0.0 - 2.0 %) 0.2 Absolute Granulocytes (1.4 - 6.5 /CUMM) 4.8 Absolute Lymphocytes (1.2 - 3.4 /CUMM) 0.9 L Absolute Monocytes (0.10 - 0.60 /CUMM) 0.5 Absolute Eosinophils (0.0 - 0.7 /CUMM) 0 Absolute Basophils (0.0 - 0.2 /CUMM) 0 PUBS MCHC (33.0 - 37.0 G/DL) 31.4 L Serology Virus Culture Pending Microbiology Date/Time Procedure - Status Source Growth 08/03 839 Legionella Antigen - COMP URINE ROUT 08/03 839 Streptococcus pneumoniae Antigen (M - COMP URINE ROUT 08/03 839 Urine Culture - COMP URINE ROUT 08/03 9 Respiratory Culture - CAN LOWER RESP Cancelled: SPECIMEN NOT RECEIVED IN LABORATORY 08/03 9 Gram Stain - CAN LOWER RESP Cancelled: SPECIMEN NOT RECEIVED IN LABORATORY 08/02 1814 Blood Culture - RES BLOOD 08/02 174 Blood Culture - RES BLOOD Discharge Instructions Medications at Discharge Discharge Medications: Continue taking these medications: Metoprolol Tartrate (Lopressor) 50 MG TABLET 1.5 Tablet ORAL TWICE DAILY Comments: GIVEN 08/05/16 @ 9:30AM Losartan (Cozaar) 100 MG TABLET 1 Tablet ORAL TAKE AT BEDTIME Comments: GIVEN 08/04/16 @ 9:30 PM Furosemide (Furosemide) 40 MG TABLET 1 Tablet ORAL DAILY Comments: GIVEN 08/05/16 @ 9:30AM Methimazole (Methimazole) 5 MG TABLET 1 Tablet ORAL DAILY Comments: GIVEN 08/05/16 @ 09:30 AM Rosuvastatin Calcium (Crestor) 20 MG TABLET 1 Tablet ORAL Every night Comments: GIVEN ATORVASTATIN IN HOSPITAL SUBSTITUTE LAST GIVEN 08/04/16 @ 5PM Diltiazem HCl (Diltiazem 24HR ER) 240 MG CAP.ER.24H 1 Capsule ORAL DAILY Comments: GIVEN 08/05/16 @ 9:30 AM Rivaroxaban (Xarelto) 20 MG TABLET 1 Tablet ORAL DAILY Instructions: with food Comments: GIVEN 08/05/16 @ 9:30AM Ergocalciferol (Vitamin D2) (Vitamin D2) 50,000 UNIT CAPSULE 1 Capsule ORAL EVERY WEDNESDAY Comments: NOT GIVEN IN HOSPITAL Metformin HCl (Metformin HCl) 500 MG TABLET 1 Tablet ORAL TWICE DAILY Comments: NOT GIVEN IN HOSPITAL Alendronate Sodium (Fosamax) 70 MG TABLET 1 Tablet ORAL EVERY WEDNESDAY Instructions: in the morning, at least 30 minutes before the first food, beverage, or medication of the day Comments: GIVEN 08/05/16 @ 6:15 AM Albuterol Sulfate (Proair Hfa) 90 MCG HFA.AER.AD 2 Puff Inhale through mouth Q4H as needed for SOB/WHEEZING Comments: GIVEN 08/04/16 @6:30PM Fluticasone Propionate (Flovent Hfa) 220 MCG AER.W.ADAP 1 PUFF Inhale through mouth TWICE DAILY Comments: GIVEN 08/05/16 @ 9:30 AM Start taking the following new medications: Azithromycin (Azithromycin) 500 MG TABLET 1 Tablet ORAL DAILY Days = 4 No Refills Comments: GIVEN IV AZITHROMYCIN IN HOSPITAL LAST GIVEN 08/04/16 @ 9:30PM
[2016-08-03 22:19] VITALS: BP 134/64
--- NOTE | 2016-08-04 07:40 | PN- Housestaff ---
ELISABETH HERNANDEZ 08/04/16 0739: Subjective Follow-up For: #1. acute Hypoxic respiratory failure secondary to left lower lobe pneumonia #2 macrocytosis. #3 history of atrial fibrillation. #4 history of hyperthyroidism Complaints: no complaints Tele-Events Since Last Visit: A fib Subjective: I have seen and examined the patient today matias, she is doing well, no new complaitns, will further taper oxygen today, and try gettign sats on room air Review of Systems Constitutional: Reports: see HPI. Objective Last 24 Hrs of Vital Signs/I&O Vital Signs Date Time Temp Pulse Resp B/P Pulse O2 O2 Flow FiO2 Ox Delivery Rate 08/04 0000 Nasal 2.0L Cannula 08/03 221 97.7 76 20 134/64 97 Nasal 2.0L Cannula 08/03 2210 97.7 76 20 132/62 08/03 2026 95 Nasal 2.0L Cannula 08/03 2000 94 Nasal 2.0L Cannula 08/03 1720 94 Nasal 2.0L Cannula 08/03 1559 98.0 76 17 112/70 94 Nasal 1.5L Cannula 08/03 1159 Nasal 1.0L Cannula 08/03 0912 95 Nasal 2.0L Cannula 08/03 0826 97.3 76 20 124/78 92 Nasal 2.0L Cannula Intake & Output 08/04 0800 08/04 0000 08/03 1600 Intake Total 650 600 Output Total 600 Balance 650 0 Intake, IV 250 200 Intake, Oral 400 400 Output, Urine 600 Physical Exam General Appearance: Alert, Oriented X3, Cooperative, No Acute Distress Skin: No Rashes, No Breakdown, No Significant Lesion HEENT: Atraumatic, PERRLA, EOMI Neck: Supple, No JVD Cardiovascular: Regular Rate, Normal S1, Normal S2, No Murmurs Lungs: Normal Air Movement, scattered rhonchi Abdomen: Normal Bowel Sounds, Soft, No Tenderness Neurological: Normal Speech, Strength at 5/5 X4 Ext, Normal Tone, Sensation Intact, Cranial Nerves 3-12 NL Extremities: No Clubbing, No Cyanosis, No Edema, Normal Pulses Vascular: Normal Pulses Current Medications: Current Medications Sig/Diana Start time Last Medication Dose Route Stop Time Status Admin Acetaminophen 650 MG Q6P PRN 08/03 0015 AC 08/03 PO 1020 Albuterol Sulfate 3 ML BID 08/03 1215 AC 08/03 INH 2022 Alendronate Sodium 70 MG QWED 08/05 0700 AC PO Atorvastatin Calcium 80 MG 1700 08/03 1700 AC 08/03 PO 1624 Azithromycin 500 MG 2200 08/03 2200 AC 08/03 Sodium Chloride 250 ML IV 2211 Azithromycin 500 MG DAILY 08/03 1000 DC Sodium Chloride 250 ML IV Ceftriaxone Sodium 1,000 MG 1930 08/03 1930 AC 08/03 IV 1624 Ceftriaxone Sodium 1,000 MG DAILY 08/03 1000 DC IV Diltiazem HCl 240 MG DAILY 08/03 1000 AC 08/03 PO 1013 Fluticasone 1 PUF BID 08/03 1000 AC 08/03 Propionate INH 2211 Furosemide 40 MG DAILY 08/03 1000 AC 08/03 PO 1013 Ibuprofen 600 MG Q6P PRN 08/03 0015 AC 08/03 PO 2004 Insulin Aspart 0 TIDAC 08/03 0800 AC 08/03 SC 1303 Losartan Potassium 100 MG 2200 08/03 0045 AC 08/03 PO 2210 Methimazole 5 MG DAILY 08/03 1000 AC 08/03 PO 1013 Metoprolol Tartrate 75 MG BID 08/03 1000 AC 08/03 PO 2210 Rivaroxaban 20 MG DAILY 08/03 1000 AC 08/03 PO 1013 Sodium Chloride 1,000 ML .[id number] 08/03 0015 DC 08/03 IV 0032 Last 24 Hrs of Lab/Mateusz Results Last 24 Hrs of Labs/Mics: Laboratory Tests 08/04/16 0620: Sodium Pending, Potassium Pending, Chloride Pending, Carbon Dioxide Pending, Anion Gap Pending, BUN Pending, Creatinine Pending, BUN/Creatinine Ratio Pending , CBC w Diff Pending, WBC Pending, RBC Pending, Hgb Pending, Hct Pending, MCV Pending, MCH Pending, RDW Pending, Plt Count Pending, MPV Pending, PUBS MCHC Pending 08/03/16 0840: Urinalysis LIGHT H, Urine Color YEL, Urine Clarity HAZY H, Urine pH 6.0, Ur Specific Villas >= 1.030, Urine Protein TRACE H, Urine Ketones NEG, Urine Nitrite NEG, Urine Bilirubin NEG, Urine Urobilinogen 0.2, Ur Leukocyte Esterase NEG, Ur Microscopic SEDIMENT EXAMINED, Urine RBC 1-3, Urine WBC RARE, Ur Epithelial Cells MOD H, Hyaline Casts RARE H, Granular Casts RARE H, Urine Mucus MANY H, Urine Hemoglobin NEG, Urine Glucose >=1000 H Microbiology 08/03 839 URINE ROUT: Legionella Antigen - RES 08/03 839 URINE ROUT: Streptococcus pneumoniae Antigen (M - RES 08/03 839 URINE ROUT: Urine Culture - RES Lines/Diet/Fluids Restraints: none Assessment/Plan Assessment: This 71-year-old Thai speaking female with past medical history of hypertension, hyperlipidemia, osteoporosis, diabetes mellitus, atrial fibrillation on Xarelto, hyperthyroidism on methimazole presented to the emergency department on 08/02/2016 with worsening shortness of breath and fever 2 days prior to admission associated with productive cough, headache, congestion , chest tightness when she coughs, she was found to have a MAXIMUM TEMPERATURE of 102. She also had associated chills weakness and decreased appetite. At the emergency department she was hypoxic to 88% on room air, she was put on 2 L of nasal cannula and she improved to 95%, her maximum temperature was 102, she was tachycardic, blood pressure was stable. On chest x-ray showed patchy opacity of the left lung base which was thought to be most likely secondary to pneumonia. She also had an elevated lactic acid of 2.2 which trended down to 1.1. Her EKG showed atrial fibrillation. Problem list along with assessment and plan. #1 Acute hypoxemic respiratory failure, positive sepsis criteria. * Patient was tachycardic, had a fever, no white count, chest x-ray showed left lower lobe pneumonia. * continue IV ceftriaxone and azithromycin, day 2 today. * No growth on cultures after day 1, Continue to follow Blood cultures, sputum cultures and urine cultures. * Urine Pneumonia and urine Legionella antigen were negative * Continue TRC nebulizations. * Rapid flu was negative on admission. * Will try taper oxygen and ambualte on room air. * If stable, AD tmrw, with transition to PO Ax #2 history of atrial fibrillation. * Patient was found to be in atrial fibrillation on admission as well. * Her home medication of Cardizem and metoprolol was continued. * TSH was found to be 1.47 and T4 was found to be 7.9, which were both within normal limits. * Continue anticoagulation with Xarelto at home dosage. #3 history of hypertension. * Continue diltiazem 240 mg extended release daily, continue losartan 100 mg daily, continue furosemide 40 mg daily. #4 history of hyperlipidemia. * Continue statin. #5 History of diabetes mellitus. * Continue to hold metformin * Continue monitoring fingerstick. * Hba1c pending * Fingersticks today [phone] #6 osteoporosis. * Continue vitamin D 50,000 units every Wednesday. * Continue alendronate 70 every Wednesday. #7 hyperthyroidism. * TSH T4 within normal limits. * Continue methimazole at home dosage. DVT prophylaxis with xorelto Continue consistent carbohydrate diet. Patient is full code. AD tmrw Problem List: 1. Acute bronchitis 2. Atrial fibrillation 3. Upper respiratory infection 4. Bronchitis 5. Community acquired pneumonia Pain Ratin Pain Location: b/l abdomen 2/2 to cough Pain Goal: Remain pain free Pain Plan: tylenol Tomorrow's Labs & Rationales: cbc, bep Discharge Plan Discharge Disposition: home Stable for Discharge? No Anticipated Discharge (Day): tomorrow If Discharged Today/In 24 Hrs: CMR done CORY ASHBY MD 08/04/16 1001: Attending MD Review Statement Attending Statement Attending MD Statement: examined this patient, discuss w/resident/PA/RESISTOR INSPECTOR, agreed w/resident/PA/RESISTOR INSPECTOR, reviewed EMR data (avail), discussed with nursing Attending Assessment/Plan: 71-year-old female with past medical history of diabetes, hyperthyroidism and A. fib on Xarelto. She is here with a community-acquired pneumonia and we have an IV ceftriaxone and Azithro. Her fever curve is come down and overall she's feeling better. We will ambulate her, check her sats, wean off the oxygen and anticipate discharge in a.m.
[2016-08-04 08:17] LABS: ABSOLUTE BASOPHIL COUNT 0 /CUMM (0.0-0.2); ABSOLUTE EOSINOPHIL COUNT 0 /CUMM (0.0-0.7); ABSOLUTE LYMPH COUNT 2.3 /CUMM (1.2-3.4); ABSOLUTE MONOCYTE COUNT 0.5 /CUMM (0.10-0.60); BASOPHIL % 0.6 % (0.0-2.0); EOSINOPHIL % 0.7 % (0-5); GRANULOCYTE % 57.8 % (42.2-75.2); HEMATOCRIT 36.2 % (37-47); MEAN CORPUSCULAR HGB 20.9 PG (27.0-31.0); MEAN CORPUSCULAR HGB CONC 31.3 G/DL (33.0-37.0); MEAN CORPUSCULAR VOLUME 66.9 FL (81.0-99.0); MEAN PLATELET VOLUME 8.7 FL (7.4-10.4); PLATELET COUNT 195 /CUMM (130-400); RBC DISTRIBUTION WIDTH 15.2 % (11.5-14.5); RED BLOOD CELL CT 5.41 /CUMM (4.20-5.40); WHITE BLOOD CELL COUNT 6.9 /CUMM (4.8-10.8)
[2016-08-04 08:22] VITALS: BP 120/68
--- NOTE | 2016-08-04 09:13 | Patient Discharge Instructions ---
Discharge Instructions General Discharge Information You were seen/treated for: goyo Special Instructions: please follow up with your PCP within oNE week of discharge. Please continue taking your medications as prescribed. Diet Continue normal diet: No Recommended Diet: CC-3 Acute Coronary Syndrome Inclusion Criteria At DC or during hospital stay patient has or had the following: ACS DIAGNOSIS No Discharge Core Measures Meds if any: Prescribed or Continued at Discharge Meds if any: NOT Prescribed or Continued at Discharge Congestive Heart Failure Inclusion Criteria At DC or during hospital stay patient has or had the following: CHF DIAGNOSIS No Discharge Core Measures Meds if any: Prescribed or Continued at Discharge Meds if any: NOT Prescribed or Continued at Discharge Cerebrovascular accident Inclusion Criteria At DC or during hospital stay patient has or had the following: CVA/TIA Diagnosis No Discharge Core Measures Meds if any: Prescribed or Continued at Discharge Meds if any: NOT Prescribed or Continued at Discharge Venous thromboembolism Inclusion Criteria VTE Diagnosis No VTE Type NONE VTE Confirmed by (Test) NONE Discharge Core Measures - Per Current guidelines, there needs to be overlap - treatment for the first 5 days of Warfarin therapy. - If discharged on Warfarin prior to 5 days of - overlap therapy, the patient will need to be - assessed for post discharge needs including - *Post discharge parental anticoagulation - *Warfarin and/or parental anticoagulation education - *Follow up date to check INR post discharge At least 5 days overlap therapy as Inpatient No Meds if any: Prescribed or Continued at Discharge Note: Overlap Therapy is Warfarin and Anticoagulant Meds if any: NOT Prescribed or Continued at Discharge
[2016-08-04 16:18] VITALS: BP 130/70
[2016-08-04 23:32] VITALS: BP 100/70
--- NOTE | 2016-08-05 07:17 | PN- Housestaff ---
ELISABETH HERNANDEZ 08/05/16 0716: Subjective Follow-up For: #1. Acute Hypoxic respiratory failure secondary to left lower lobe pneumonia #2 microcytosis. #3 history of atrial fibrillation. #4 history of hyperthyroidism Complaints: no complaints Tele-Events Since Last Visit: gen med hold Subjective: I have seen and examined the patient today morning. She is saturating 99 to 100% on room air. She got out of bed and use the restroom she has been walking outside as well. She does not have any new complaints, her abdominal pain secondary to cough ( bilateral lower rib area) has also improved however not completely gone. We will discharge the patient home today Review of Systems Constitutional: Reports: see HPI. Objective Last 24 Hrs of Vital Signs/I&O Vital Signs Date Time Temp Pulse Resp B/P Pulse O2 O2 Flow FiO2 Ox Delivery Rate 08/05 1040 95 Room Air Room Air 08/05 0804 97.8 110 20 150/88 92 Room Air 08/04 2332 97.6 86 20 100/70 100 Room Air 08/04 2124 78 134/74 08/04 1830 97 Room Air 08/04 1618 98.4 84 20 130/70 93 Room Air Intake & Output 08/05 1600 08/05 0800 08/05 0000 Intake Total 100 970 Output Total Balance 100 970 Intake, IV 250 Intake, Oral 100 720 Physical Exam General Appearance: Alert, Oriented X3, Cooperative, No Acute Distress Skin: No Rashes, No Breakdown HEENT: Atraumatic, PERRLA, EOMI Cardiovascular: Regular Rate, Normal S1, Normal S2, No Murmurs Lungs: Clear to Auscultation, Normal Air Movement Abdomen: Normal Bowel Sounds, Soft, No Tenderness Neurological: Strength at 5/5 X4 Ext, Normal Tone, Sensation Intact, Cranial Nerves 3-12 NL Extremities: No Clubbing, No Cyanosis, No Edema, Normal Pulses Vascular: Normal Pulses Current Medications: Current Medications Sig/Diana Start time Last Medication Dose Route Stop Time Status Admin Acetaminophen 650 MG .STK-MED ONE 08/04 1654 DC PO 08/04 1655 Acetaminophen 650 MG Q6P PRN 08/03 0015 DCD 08/04 PO 1700 Albuterol Sulfate 3 ML BID 08/03 1215 DCD 08/05 INH 1025 Alendronate Sodium 70 MG QWED 08/05 0700 DCD 08/05 PO 0613 Atorvastatin Calcium 80 MG 1700 08/03 1700 DCD 08/04 PO 1659 Azithromycin 500 MG 2200 08/03 2200 DCD 08/04 Sodium Chloride 250 ML IV 2124 Ceftriaxone Sodium 1,000 MG 1930 08/03 1930 DCD 08/04 IV 1700 Diltiazem HCl 240 MG DAILY 08/03 1000 DCD 08/05 PO 0936 Fluticasone 1 PUF BID 08/03 1000 DCD 08/05 Propionate INH 0938 Furosemide 40 MG DAILY 08/03 1000 DCD 08/05 PO 0936 Ibuprofen 600 MG Q6P PRN 08/03 0015 DCD 08/03 PO 2004 Insulin Aspart 0 TIDAC 08/03 08 DCD 08/04 SC 1328 Losartan Potassium 100 MG 2200 08/03 0045 DCD 08/04 PO 2124 Methimazole 5 MG DAILY 08/03 1000 DCD 08/05 PO 0937 Metoprolol Tartrate 75 MG BID 08/03 1000 DCD 08/05 PO 0936 Rivaroxaban 20 MG DAILY 08/03 1000 DCD 08/05 PO 0937 Lines/Diet/Fluids Restraints: none Assessment/Plan Assessment: This 71-year-old Ethiopian speaking female with past medical history of hypertension, hyperlipidemia, osteoporosis, diabetes mellitus, atrial fibrillation on Xarelto, hyperthyroidism on methimazole presented to the emergency department on 08/02/2016 with worsening shortness of breath and fever 2 days prior to admission associated with productive cough, headache, congestion , chest tightness when she coughs, she was found to have a MAXIMUM TEMPERATURE of 102. She also had associated chills weakness and decreased appetite. At the emergency department she was hypoxic to 88% on room air, she was put on 2 L of nasal cannula and she improved to 95%, her maximum temperature was 102, she was tachycardic, blood pressure was stable. On chest x-ray showed patchy opacity of the left lung base which was thought to be most likely secondary to pneumonia. She also had an elevated lactic acid of 2.2 which trended down to 1.1. Her EKG showed atrial fibrillation. Problem list along with assessment and plan. #1 Acute hypoxemic respiratory failure, positive sepsis criteria. * Patient was tachycardic, had a fever, no white count, chest x-ray showed left lower lobe pneumonia. * Continue IV ceftriaxone and azithromycin, day 3 today, will d.c on po azithromycin for remaining 3 days. * No growth on cultures. * Urine Pneumonia and urine Legionella antigen were negative. * Continue TRC nebulizations. * Rapid flu was negative on admission. #2 history of atrial fibrillation. * Patient was found to be in atrial fibrillation on admission as well. * Her home medication of Cardizem and metoprolol was continued. * TSH was found to be 1.47 and T4 was found to be 7.9, which were both within normal limits. * Continue anticoagulation with Xarelto at home dosage. #3 history of hypertension. * Continue diltiazem 240 mg extended release daily, continue losartan 100 mg daily, continue furosemide 40 mg daily. #4 history of hyperlipidemia. * Continue statin. #5 History of diabetes mellitus. * Continue to hold metformin * Continue monitoring fingerstick. * Hba1c 6.4, will follow up with PCP. #6 osteoporosis. * Continue vitamin D 50,000 units every Wednesday. * Continue alendronate 70 every Wednesday. #7 hyperthyroidism. * TSH T4 within normal limits. * Continue methimazole at home dosage. DVT prophylaxis with Xorelto Continue Consistent Carbohydrate diet. Patient is full code. Patient will be discharged today to home with remaining antibiocitc regimen Problem List: 1. Community acquired pneumonia 2. Atrial fibrillation Pain Ratin Pain Location: na Pain Goal: Remain pain free Pain Plan: tylenol Tomorrow's Labs & Rationales: d/c Discharge Plan Discharge Disposition: home Stable for Discharge? Yes Anticipated Discharge (Day): today If Discharged Today/In 24 Hrs: CMR done CORY ASHBY MD 08/05/16 0952: Attending MD Review Statement Attending Statement Attending MD Statement: examined this patient, discuss w/resident/PA/MINISTER OF RELIGION, agreed w/resident/PA/MINISTER OF RELIGION, discussed with family, reviewed EMR data (avail), discussed with nursing, discussed with case mgmt Attending Assessment/Plan: Patient is doing well. She is saturating over 90% on room air. She is a 71- year-old with diabetes, hypertension, A. fib on Xarelto, hyperthyroidism on methimazole she's here with a community-acquired pneumonia. We can switch her to by mouth Zithromax to complete a total of 7 days and close outpatient follow- up.
[2016-08-05] MEDS ORDERED: AZITHROMYCIN500 M3 PO ×2 (07:54→09:38)
[2016-08-05 08:04] VITALS: BP 150/88
== END 2016-08-05 11:40 | DRG 720 ==
LOC: ERH 17:08 → ERHI 19:16 → ENPENDDIS 19:16 → 1NO 19:16
PROVIDERS: Emergency Medicine; Internal Medicine Hematology & Oncology; ADMIT Student in an Organized Health Care Education/Training Program
DX: A41.9 Sepsis, unspecified organism (principal); J96.01 Acute respiratory failure with hypoxia; J18.9 Pneumonia, unspecified organism; I10 Essential (primary) hypertension; E11.9 Type 2 diabetes mellitus without complications; I48.2 Chronic atrial fibrillation; Z79.01 Long term (current) use of anticoagulants; E78.5 Hyperlipidemia, unspecified; I27.2 Other secondary pulmonary hypertension; M81.0 Age-related osteoporosis without current pathological fracture; E87.2 Acidosis; Z79.84 Long term (current) use of oral hypoglycemic drugs
CPT/HCPCS: 1NSP; 36415; 81001; 82436; 87040; 87070; 87086; 87449; 87450; 87804; 87804-59; 93005; 93010; 96374; 96375; J0456; J0696; J2930; J3490; J7040

== ENCOUNTER 2017-01-05 14:17 | Emergency (ER) | payer OTHER ==
[~2017-01-05] VITALS: Ht 152.4 cm; Wt 79.4 kg
[~2017-01-05 14:17] MED LIST changes: +AZITHROMYCIN500 M3 PO; +FLOVENT HFA12 GM INH; +FOSAMAX70 M1 PO; +METFORMIN HCL500 M3 PO; +PROAIR HFA8.5 GM INH; +VITAMIN D250000 UNIT PO
--- NOTE | 2017-01-05 15:30 | ED CARDIAC/CP/PALPITATIONS ---
History of Present Illness General Chief Complaint: Skin Rash/ Abcess Stated Complaint: NECK RASH Source: patient Exam Limitations: no limitations Vital Signs & Intake/Output Vital Signs & Intake/Output Vital Signs Date Time Temp Pulse Resp B/P B/P Pulse O2 O2 Flow FiO2 Mean Ox Delivery Rate 01/05 1618 104 22 154/71 94 Room Air 01/05 1559 96 Room Air 01/05 1549 104 22 182/98 01/05 1425 98.8 124 18 192/100 96 Room Air Allergies Coded Allergies: NO KNOWN ALLERGIES (06/13/14) Reconcile Medications Albuterol Sulfate (Proair Hfa) 90 MCG HFA.AER.AD 2 PUF INH Q4H PRN SOB/ WHEEZING (Reported) Diltiazem HCl (Diltiazem 24HR ER) 240 MG CAP.ER.24H 1 CAP PO DAILY HEART/BP ( Reported) Ergocalciferol (Vitamin D2) (Vitamin D2) 50,000 UNIT CAPSULE 1 CAP PO QFRI SUPPLEMENT (Reported) Fluticasone Propionate (Flovent Hfa) 220 MCG AER.W.ADAP 1 PUFF INH BID RESPIRATORY (Reported) Furosemide (Lasix) 80 MG TABLET 1 TAB PO DAILY DIURETIC (Reported) Losartan (Cozaar) 100 MG TABLET 1 TAB PO QHS BP (Reported) Metformin HCl (Glucophage) 850 MG TABLET 1 TAB PO BID DM (Reported) Methimazole 5 MG TABLET 1 TAB PO DAILY THYROID (Reported) Methylprednisolone. (Medrol) 4 MG TAB.DS.PK 1 DP PO AD rash 6 on day 1 then reduce by one tablet daily until gone Metoprolol Tartrate (Lopressor) 50 MG TABLET 1.5 TAB PO BID HEART/BP ( Reported) Rivaroxaban (Xarelto) 20 MG TABLET 1 TAB PO DAILY BLOOD THINNER (Reported) with food Rosuvastatin Calcium (Crestor) 20 MG TABLET 1 TAB PO QPM CHOLESTEROL ( Reported) Tramadol HCl 50 MG TABLET 1-2 TAB PO BIDP PRN pain Valacyclovir HCl (Valtrex) 1,000 MG TABLET 1 TAB PO TID shingles Triage Note: PT COMPLAINS OF 3 DAYS OF PAIN TO R SIDE NECK/CHEST AND ITCHINESS TO THE AREA. SLIGHT RASH NOTED TO CHEST. PT HR 128-130 Triage Nurses Notes Reviewed? yes Onset: Abrupt Duration: day(s): (2), constant, continues in ED Timing: recent history Location: right side chest/neck Radiation: no radiation Activities at Onset: none HPI: 71-year-old female comes into emergency room for further evaluation of rash in the right side of her chest pain. Patient reports that she was experiencing pain in the right side of her chest and in her neck yesterday and noticed a rash developing last night. Burning pain. Itching. Patient had some mild shortness of breath this morning used her albuterol pump to those symptoms have since resolved. Patient is on Xarelto. She currently denies any shortness of breath. No lightheaded dizziness. Nothing seems to make the symptoms better. Patient reports it feels superficial over her skin. (AKASH GARCIA) Past History Travel History Traveled to [place] past 21 day No Medical History Any Pertinent Medical History? 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 No (AKASH GARCIA) Review of Systems Review of Systems Constitutional: Reports: no symptoms. EENTM: Reports: no symptoms. Respiratory: Reports: see HPI. Cardiovascular: Reports: see HPI. GI: Reports: no symptoms. Genitourinary: Reports: no symptoms. Musculoskeletal: Reports: no symptoms. Skin: Reports: see HPI. Neurological/Psychological: Reports: no symptoms. Hematologic/Endocrine: Reports: no symptoms. Immunologic/Allergic: Reports: no symptoms. All Other Systems: Reviewed and Negative (AKASH GARCIA) Physical Exam Physical Exam General Appearance: well developed/nourished, alert, awake Head: atraumatic Eyes: Bilateral: normal appearance. Ears, Nose, Throat: normal ENT inspection, hearing grossly normal Neck: normal inspection Respiratory: no respiratory distress Cardiovascular: irregularly irregular Gastrointestinal: soft Back: normal inspection Extremities: normal inspection, normal range of motion Neurologic/Psych: awake, alert, oriented x 3, normal gait, normal mood/affect Skin: macular papular rash right side of chest wall, extending up to right side of neck, Core Measures ACS in differential dx? Yes Severe Sepsis Present: No Septic Shock Present: No (BISHNU SÁNCHEZ,AKASH) Progress Differential Diagnosis: AMI, aortic dissection, atrial fibrillation, costochondritis, myocarditis, pneumothorax, pulmonary embolism, PUD/GERD, rib fracture, unstable angina, shingles, contact dermatitis, Plan of Care: Orders Procedure Date/time Status Telemetry/Mural Painter 01/05 1530 Active TROPONIN LEVEL 01/05 1530 Complete COMPREHENSIVE METABOLIC PANEL 01/05 1530 Complete CBC WITHOUT DIFFERENTIAL 01/05 153 Complete EKG 01/05 1428 Active Laboratory Tests 01/05/17 1544: Anion Gap 11, Estimated GFR > 60, BUN/Creatinine Ratio 20.0, Glucose 162 H, Calcium 9.6, Total Bilirubin 0.4, AST 17, ALT 33, Alkaline Phosphatase 56, Troponin I < 0.01, Total Protein 7.0, Albumin 4.2, Globulin 2.8, Albumin/ Globulin Ratio 1.5, CBC w Diff NO MAN DIFF REQ, RBC 5.38, MCV 66.5 L, MCH 21.0 L, RDW 15.1 H, MPV 8.8, Gran % 66.6, Lymphocytes % 29.4, Monocytes % 3.3, Eosinophils % 0.5, Basophils % 0.2, Absolute Granulocytes 3.0, Absolute Lymphocytes 1.3, Absolute Monocytes 0.1 L, Absolute Eosinophils 0, Absolute Basophils 0, PUBS MCHC 31.7 L Diagnostic Imaging: Viewed by Me: Radiology Read. Discussed w/RAD: Radiology Read. Radiology Impression: SERVICE DATE: 01/05/17-1529 EXAM TYPE: RAD - XRY- PORTABLE CHEST XRAY EXAMINATION: XR PORTABLE CHEST CLINICAL INFORMATION: Shortness of breath. COMPARISON: Chest x-ray 08/14/2016 TECHNIQUE: Portable frontal view of the chest was obtained. 3:30 PM FINDINGS: No significant abnormality is noted involving the heart, lungs, mediastinum, bony thorax or soft tissues. IMPRESSION: Unremarkable examination. Initial ED EKG: rate (115), AFIB Comments: 01/05/2017 6:20:18 PM Patient clinically looks well. Nontoxic-appearing. In no apparent distress. Patient resting comfortably in room. Heart rate improved. Blood pressure improved. Rash is likely early shingles. Patient seen by Dr. velasco. At this time patient will be discharged. She agrees with plan of care. She clinically does not appear to be in any type of distress. Patient prescribed medications for likely shingles. Patient was told to return here in 2 days or her primary care doctor in 2 days to have reevaluation. Considered the diagnosis of AK but EKG appears to be unchanged. Pain has been going on continuous for over 12 hours and her troponin is negative. Chest x-ray is clear. Pain appears to be consistent with superficial pain over the rash area. (AKASH GARCIA) Departure Departure Disposition: HOME OR SELF CARE Condition: Stable Clinical Impression Primary Impression: Rash and nonspecific skin eruption Secondary Impressions: HTN (hypertension), Shingles Referrals: MONIQUE JONES MD (PCP/Family) Additional Instructions: Take Valtrex, Medrol Dosepak, and tramadol as prescribed. Follow-up with your primary care doctor. Return if any concerns worsening symptoms. Please go over all results of today's visit with your primary care doctor. Contact your primary care doctor to let them know you were here in the emergency room. There may be nonspecific findings which may not be related to your visit today here in the emergency room but may require further evaluation and chronic monitoring by your primary care doctor. If you had a laceration today the chance of foreign body always remains. You should follow-up with your primary care doctor for recheck in 3-5 days for a wound check. If you had an x-ray done there is a chance that a fracture could have been missed on initial read and you should follow-up with your primary care doctor for repeat x-rays if symptoms persist. If your blood pressure was elevated here in the emergency room please have rechecked by her primary care doctor within the next 48 hours by your primary care doctor. If you were prescribed a narcotic here in the emergency room or any type of controlled substances you're not allowed to drive while taking this medication or operate any type of heavy machinery. Narcotics can make you feel lightheaded dizziness nausea and can cause constipation. You may need to pick pulling machine operator a stool softener. Thank you for choosing [facility] emergency room. Please return to the emergency room immediately if you have any other concerns worsening of symptoms. Departure Forms: Customer Survey General Discharge Information Prescriptions: Current Visit Scripts Methylprednisolone. (Medrol) 1 DP PO AD #1 DP 6 on day 1 then reduce by one tablet daily until gone Valacyclovir HCl (Valtrex) 1 TAB PO TID #21 TAB Tramadol HCl 1-2 TAB PO BIDP PRN pain #15 TAB (AKASH GARCIA) PA/SKEIN YARN DRIER Co-Sign Statement Statement: ED Attending supervision documentation- [X] I saw and evaluated the patient. I have also reviewed all the pertinent lab results and diagnostic results. I agree with the findings and the plan of care as documented in the PA's/SKEIN YARN DRIER's documentation. [X] I have reviewed the ED Record and agree with the PA's/SKEIN YARN DRIER's documentation. [] Additions or exceptions (if any) to the PAs/SKEIN YARN DRIER's note and plan are summarized below: [] (CALLI GRIMES,RIAZ) Critical Care Note Critical Care Note Critical Care Time: 30-74 min (35) (AKASH GARCIA)
--- NOTE | 2017-01-05 15:56 | RADIOLOGY REPORT ---
EXAMINATION: XR PORTABLE CHEST CLINICAL INFORMATION: Shortness of breath. COMPARISON: Chest x-ray 08/14/2016 TECHNIQUE: Portable frontal view of the chest was obtained. 3:30 PM FINDINGS: No significant abnormality is noted involving the heart, lungs, mediastinum, bony thorax or soft tissues. IMPRESSION: Unremarkable examination.
[2017-01-05] MEDS ORDERED: GLUCOPHAGE850 M2 PO (15:57)
[2017-01-05] MEDS ORDERED: LASIX80 M1 PO (15:58)
[2017-01-05 16:01] LABS: ABSOLUTE BASOPHIL COUNT 0 /CUMM (0.0-0.2); ABSOLUTE EOSINOPHIL COUNT 0 /CUMM (0.0-0.7); ABSOLUTE LYMPH COUNT 1.3 /CUMM (1.2-3.4); ABSOLUTE MONOCYTE COUNT 0.1 /CUMM (0.10-0.60); BASOPHIL % 0.2 % (0.0-2.0); EOSINOPHIL % 0.5 % (0-5); GRANULOCYTE % 66.6 % (42.2-75.2); HEMATOCRIT 35.8 % (37-47); MEAN CORPUSCULAR HGB CONC 31.7 G/DL (33.0-37.0); MEAN CORPUSCULAR VOLUME 66.5 FL (81.0-99.0); MEAN PLATELET VOLUME 8.8 FL (7.4-10.4); PLATELET COUNT 173 /CUMM (130-400); RBC DISTRIBUTION WIDTH 15.1 % (11.5-14.5); RED BLOOD CELL CT 5.38 /CUMM (4.20-5.40); WHITE BLOOD CELL COUNT 4.5 /CUMM (4.8-10.8)
[2017-01-05 16:18] VITALS: BP 154/71
[2017-01-05] MEDS ORDERED: TRAMADOL HCL50 M1 PO (17:13)
[2017-01-05] MEDS ORDERED: VALTREX1000 MG PO (17:13)
[2017-01-05] MEDS ORDERED: MEDROL4 M2 PO (17:13)
== END 2017-01-05 17:42 ==
LOC: ERH 14:17
PROVIDERS: Physician Assistant Medical
DX: B02.9 Zoster without complications (principal); I10 Essential (primary) hypertension
CPT/HCPCS: 93005; 93010; 96374; 99291

== ENCOUNTER 2018-01-01 12:21 | Inpatient (IN) | payer OTHER ==
[~2018-01-01] VITALS: Ht 152.4 cm; Wt 78.9 kg
[~2018-01-01 12:21] MED LIST changes: +GLUCOPHAGE850 M2 PO; +LASIX80 M1 PO; +MEDROL4 M2 PO; +TRAMADOL HCL50 M1 PO; +VALTREX1000 MG PO
--- NOTE | 2018-01-01 12:42 | ED CARDIAC/CP/PALPITATIONS ---
History of Present Illness General Chief Complaint: Dizziness Stated Complaint: DIZZY Source: patient, family, old records Exam Limitations: no limitations Vital Signs & Intake/Output Vital Signs & Intake/Output Vital Signs Date Time Temp Pulse Resp B/P B/P Pulse O2 O2 Flow FiO2 Mean Ox Delivery Rate 01/01 1536 98.4 117 16 124/77 95 Nasal 2.0L Cannula 01/01 1346 115 01/01 1316 133 96 Nasal 2.0L Cannula 01/01 1255 145 90 Room Air 01/01 1240 161 01/01 1226 96.8 127 16 130/75 94 Room Air Allergies Coded Allergies: NO KNOWN ALLERGIES (06/13/14) Reconcile Medications Albuterol Sulfate (Proair Hfa) 90 MCG HFA.AER.AD 2 PUF INH Q4H PRN SOB/ WHEEZING (Reported) Calcitriol 0.5 MCG CAPSULE 1 CAP PO DAILY SUPPLEMENT (Reported) Calcium Carbonate (Oysco-500) 500 MG CALCIUM (1,250 MG) TABLET 1 TAB PO 4XDAILY SUPPLEMENT (Reported) Cefuroxime Axetil (Cefuroxime) 500 MG TABLET 1 TAB PO Q12H ABX (Reported) Diltiazem HCl (Diltiazem 24HR ER) 240 MG CAP.ER.24H 1 CAP PO DAILY HEART/BP ( Reported) Ferrous Sulfate 324 MG (65 MG IRON) TABLET.DR 1 TAB PO DAILY SUPPLEMENT ( Reported) Fluticasone Propionate (Flovent Hfa) 220 MCG AER.W.ADAP 1 PUFF INH BID RESPIRATORY (Reported) Furosemide (Lasix) 80 MG TABLET 1 TAB PO QHS DIURETIC (Reported) Levothyroxine Sodium 137 MCG TABLET 1 TAB PO DAILY THYROID (Reported) Losartan Potassium (Unknown Strength) TABLET (Unknown Dose) PO DAILY HEART/BP (Reported) Magnesium Oxide (Magnesium) 400 MG CAPSULE 1 CAP PO BID SUPPLEMENT (Reported) Metformin HCl (Glucophage) 850 MG TABLET 1 TAB PO BID DM (Reported) Methimazole 5 MG TABLET 1 TAB PO DAILY THYROID (Reported) Metoprolol Tartrate (Lopressor) 50 MG TABLET 2 TAB PO QAM HEART/BP (Reported) Metoprolol Tartrate (Lopressor) 50 MG TABLET 1.5 TAB PO QPM HEART/BP ( Reported) Potassium Chloride 20 MEQ TAB.ER.PRT 1 TAB PO DAILY SUPPLEMENT (Reported) Rivaroxaban (Xarelto) 20 MG TABLET 1 TAB PO DAILY BLOOD THINNER (Reported) with food Rosuvastatin Calcium (Crestor) 20 MG TABLET 1 TAB PO QPM CHOLESTEROL ( Reported) Spironolactone 25 MG TABLET 1 TAB PO DAILY DIURETIC (Reported) Triage Note: 72 Y/O FEMALE C/O "DIZZINESS" THROUGHOUT THE DAY TODAY. ALSO C/O "PINS AND NEEDLES" AND "TINGLING" TO ENTIRE BODY: BILATERAL ARMS AND LEGS. FAMILY ASSISTING WITH TRANSLATION STATES PT C/O "MUSCLES SPASMS" TODAY. PT DENIES C/P. DENIES SOB. EKG COMPLETE: RAPID AFIB 120'S-150'S. TAKEN TO ROOM 21 FOR EVAL Triage Nurses Notes Reviewed? yes HPI: Patient presents complaining of feeling lightheaded and pins and needles over her entire body. Patient states that the symptoms started shortly after waking up. Patient denies any chest pain other than it being part of the pins and needles everywhere. She denies any shortness of breath. The symptoms have been constant. Patient then began to notice that her heart was racing. Patient did take her medications this morning. Past History Travel History Traveled to [place] past 21 day No Medical History Any Pertinent Medical History? 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 No Review of Systems Review of Systems Constitutional: Reports: no symptoms. EENTM: Reports: no symptoms. Respiratory: Reports: no symptoms. Cardiovascular: Reports: see HPI. GI: Reports: no symptoms. Genitourinary: Reports: no symptoms. Musculoskeletal: Reports: no symptoms. Skin: Reports: no symptoms. Neurological/Psychological: Reports: see HPI. Hematologic/Endocrine: Reports: no symptoms. Immunologic/Allergic: Reports: no symptoms. All Other Systems: Reviewed and Negative Physical Exam Physical Exam General Appearance: well developed/nourished, alert, awake, anxious, moderate distress Head: atraumatic, normal appearance Eyes: Bilateral: PERRL, EOMI. Ears, Nose, Throat: normal pharynx, normal ENT inspection, hearing grossly normal Neck: normal inspection, supple, full range of motion Respiratory: normal breath sounds, chest non-tender, no respiratory distress, lungs clear Cardiovascular: normal peripheral pulses, tachycardia, irregularly irregular Gastrointestinal: normal bowel sounds, soft, non-tender, no organomegaly Back: normal inspection, normal range of motion Extremities: normal inspection, normal capillary refill, normal range of motion, no edema Neurologic/Psych: no motor/sensory deficits, awake, alert, oriented x 3, normal mood/affect Skin: intact, normal color Core Measures ACS in differential dx? Yes CVA/TIA Diagnosis No Sepsis Present: No Sepsis Focused Exam Completed? No Progress Differential Diagnosis: AMI, atrial fibrillation, hyperthyroid, myocarditis, pericarditis, pneumonia, pneumothorax, pulmonary embolism Plan of Care: Orders Procedure Date/time Status Admit to inpatient 01/01 1544 Active Patient Data 01/01 1534 Active Add-on Test (ER Only) 01/01 1442 Active TOTAL TRIODOTHYROXINE 01/01 1250 Complete MAGNESIUM 01/01 1250 Complete FREE T4 01/01 1250 Complete Telemetry/Shredding Machine Knife Changer 01/01 1242 Active TSH REFLEX 01/01 1242 Complete TROPONIN LEVEL 01/01 1242 Complete D-DIMER 01/01 1242 Complete COMPREHENSIVE METABOLIC PANEL 01/01 1242 Complete CBC WITHOUT DIFFERENTIAL 01/01 1242 Complete EKG 01/01 1224 Active Current Medications Sig/Diana Start time Last Medication Dose Stop Time Status Admin Calcium Gluconate 1 GM ONCE ONE 01/01 1545 AC (Calcium Gluconate) 01/01 1644 Sodium Chloride 100 ML (Normal Saline 0.9%) Magnesium Sulfate 1 GM Q2H 01/01 1515 AC (Mag Sulfate in D5) 01/01 1914 Dextrose/Water 100 ML (D5W) Laboratory Tests 01/01/18 1250: Anion Gap 14, Estimated GFR > 60, BUN/Creatinine Ratio 31.4 H, Glucose 180 H, Calcium 5.8 *L, Magnesium 0.9 *L, Total Bilirubin 0.4, AST 21, ALT 20, Alkaline Phosphatase 54, Troponin I < 0.01, Total Protein 7.0, Albumin 4.0, Globulin 3.0, Albumin/Globulin Ratio 1.3, Free T4 1.17, Total T3 0.89 L, TSH &T3 &Free T4 Intrp 9.350 H, D-Dimer High Sensitivty < 200, CBC w Diff NO MAN DIFF REQ, RBC 5.34, MCV 66.6 L, MCH 21.1 L, MCHC 31.6 L, RDW 15.5 H, MPV 8.6, Gran % 74.5, Lymphocytes % 20.7, Monocytes % 4.3, Eosinophils % 0.1, Basophils % 0.4, Absolute Granulocytes 5.1, Absolute Lymphocytes 1.4, Absolute Monocytes 0.3, Absolute Eosinophils 0, Absolute Basophils 0 Diagnostic Imaging: Viewed by Me: Radiology Read. Discussed w/RAD: Radiology Read. CXR Impression: PATIENT: SANTIAGO NDIAYE PRESENT AGE: 72 PATIENT ACCOUNT NO: [id number] : 46 LOCATION: [facility] ORDERING PHYSICIAN: Anibal Nicole MD SERVICE DATE: 01/01/18 EXAM TYPE: RAD - XRY- PORTABLE CHEST XRAY EXAMINATION: XR PORTABLE CHEST CLINICAL INFORMATION: Chest pain COMPARISON: January 05, 2017 TECHNIQUE: Portable AP view of the chest was obtained. FINDINGS: The cardiopericardial silhouette is enlarged. There is no evidence of interstitial or airspace edema. No pneumothorax or significant pleural effusion. IMPRESSION: Cardiomegaly without acute parenchymal disease. DICTATED BY: Farooq Marquez MD DATE/TIME DICTATED:01/01/181413 FOOD PORTER:JANA DATE/TIME TRANSCRIBED:01/01/181413 CONFIDENTIAL, DO NOT COPY WITHOUT APPROPRIATE AUTHORIZATION. <Electronically signed in Other Vendor System> SIGNED BY: Farooq Marquez MD 01/01/18 1422 Initial ED EKG: AFIB (WITH RVR), nonspecific ST T wave chg Prior EKG: unchanged Rhythm Strip: atrial fibrillation Comments: Discussed with Dr. Marquez, he recommends calcium gluconate and ICU admission, thyroid panel is pending, magnesium has been added to the labs. Departure Departure Disposition: STILL A PATIENT Condition: Critical Clinical Impression Primary Impression: Hypomagnesemia Secondary Impressions: Atrial fibrillation with RVR, Hypocalcemia Referrals: Bayan MD,Sonal (PCP/Family) Departure Forms: Customer Survey General Discharge Information Admission Note Spoke With: Marilin Guerrier MD Documentation of Exam: Documentation of any treatments & extenuating circumstances including Concerns Regarding Discharge (functional status, medication knowledge or non-compliance, living conditions, etc.) that warrant an admission rather than observation: [ICU admission, magnesium replacement, calcium replacement, ENDROCRINE CONSULT] Critical Care Note Critical Care Note Critical Care Time: mins: (120 MIN)
[2018-01-01] MEDS ORDERED: LOPRESSOR50 M1 PO (14:00)
[2018-01-01] MEDS ORDERED: CEFUROXIME500 MG PO (14:01)
[2018-01-01] MEDS ORDERED: SPIRONOLACTONE25 M1 PO (14:02)
[2018-01-01] MEDS ORDERED: MAGNESIUM400 M1 PO (14:04)
[2018-01-01] MEDS ORDERED: FERROUS SULFAT324 MG PO (14:06)
[2018-01-01] MEDS ORDERED: CALCITRIOL0.5 MC1 PO (14:07)
[2018-01-01 14:09] LABS: ABSOLUTE BASOPHIL COUNT 0 /CUMM (0.0-0.2); ABSOLUTE EOSINOPHIL COUNT 0 /CUMM (0.0-0.7); ABSOLUTE GRANULOCYTE CT 5.1 /CUMM (1.4-6.5); ABSOLUTE LYMPH COUNT 1.4 /CUMM (1.2-3.4); ABSOLUTE MONOCYTE COUNT 0.3 /CUMM (0.10-0.60); BASOPHIL % 0.4 % (0.0-2.0); EOSINOPHIL % 0.1 % (0-5); GRANULOCYTE % 74.5 % (42.2-75.2); HEMATOCRIT 35.6 % (37-47); MEAN CORPUSCULAR HGB 21.1 PG (27.0-31.0); MEAN CORPUSCULAR HGB CONC 31.6 G/DL (33.0-37.0); MEAN CORPUSCULAR VOLUME 66.6 FL (81.0-99.0); MEAN PLATELET VOLUME 8.6 FL (7.4-10.4); PLATELET COUNT 239 /CUMM (130-400); RBC DISTRIBUTION WIDTH 15.5 % (11.5-14.5); RED BLOOD CELL CT 5.34 /CUMM (4.20-5.40); WHITE BLOOD CELL COUNT 6.8 /CUMM (4.8-10.8)
[2018-01-01] MEDS ORDERED: LEVOTHYROXINE137 MCG PO (14:10)
[2018-01-01] MEDS ORDERED: LOSARTAN POTAS100 M1 PO (14:10)
[2018-01-01] MEDS ORDERED: POTASSIUM CHLO20 ME2 PO (14:12)
[2018-01-01] MEDS ORDERED: OYSCO-500500 MG PO (14:12)
--- NOTE | 2018-01-01 14:22 | RADIOLOGY REPORT ---
EXAMINATION: XR PORTABLE CHEST CLINICAL INFORMATION: Chest pain COMPARISON: January 05, 2017 TECHNIQUE: Portable AP view of the chest was obtained. FINDINGS: The cardiopericardial silhouette is enlarged. There is no evidence of interstitial or airspace edema. No pneumothorax or significant pleural effusion. IMPRESSION: Cardiomegaly without acute parenchymal disease.
--- NOTE | 2018-01-01 15:45 | History & Physical ---
Rory Harris 01/01/18 1545: General Information and HPI MD Statement: I have seen and personally examined SANTIAGO NDIAYE and documented this H&P. The patient is a 72 year old F who presented with a patient stated chief complaint of [Muscle spasms]. 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 Patient started not feeling well 4 days ago when she started feeling like insects crawling on her skin and then she started experiencing muscle spasms which during speaking is demonstrating Trousseau sign. Today in the morning it was getting worse and she felt like she could fall due to spasm in the legs. Patient denies experiencing these kind of symptoms before. The patient is supposed to be on supplementation of calcium and magnesium post thyroidectomy however looking on her medication bottles she has substantial medication compared to the time when the prescription was filled early October, I also observed a bottle of antibiotic which she was supposed to have finished 2 weeks ago with substantial number of pills in it and this demonstrated that most likely the patient did not continue to take the supplements as instructed. This also brings into question bases to adjust her levothyroxine given that her TSH is high because we are not sure if the dose is not enough or the patient is not taking the medication adequately. Patient denies any chest pain palpitation shortness of breath orthopnea or paroxysmal nocturnal dyspnea. Patient denies any excessive urination and reports that has been taking her diabetic medications. She denies any recent change in medications. Patient denies alcohol consumption and it's noted from her medical record and medication both toes that she has been on Lasix 80 mg daily and spironolactone 25 mg daily. Allergies/Medications Allergies: Coded Allergies: NO KNOWN ALLERGIES (06/13/14) Home Med list Albuterol Sulfate (Proair Hfa) 90 MCG HFA.AER.AD 2 PUF INH Q4H PRN SOB/ WHEEZING (Reported) Calcitriol 0.5 MCG CAPSULE 1 CAP PO DAILY SUPPLEMENT (Reported) Calcium Carbonate (Oysco-500) 500 MG CALCIUM (1,250 MG) TABLET 2.5 TAB PO Q6 hypocalcemia (Reported) Diltiazem HCl (Diltiazem 24HR ER) 240 MG CAP.ER.24H 1 CAP PO DAILY HEART/BP ( Reported) Ferrous Sulfate 324 MG (65 MG IRON) TABLET.DR 1 TAB PO DAILY SUPPLEMENT ( Reported) Fluticasone Propionate (Flovent Hfa) 220 MCG AER.W.ADAP 1 PUFF INH BID RESPIRATORY (Reported) Furosemide (Lasix) 80 MG TABLET 1 TAB PO QHS DIURETIC (Reported) Levothyroxine Sodium 137 MCG TABLET 1 TAB PO DAILY THYROID (Reported) Losartan Potassium (Unknown Strength) TABLET 100 MG PO DAILY HEART/BP ( Reported) Magnesium Oxide (Magnesium) 400 MG CAPSULE 1 CAP PO BID SUPPLEMENT (Reported) Metformin HCl (Glucophage) 850 MG TABLET 1 TAB PO BID DM (Reported) Metoprolol Tartrate (Lopressor) 50 MG TABLET 2 TAB PO QAM HEART/BP (Reported) Metoprolol Tartrate (Lopressor) 50 MG TABLET 1.5 TAB PO QPM HEART/BP ( Reported) Potassium Chloride 20 MEQ TAB.ER.PRT 1 TAB PO DAILY SUPPLEMENT (Reported) Rivaroxaban (Xarelto) 20 MG TABLET 1 TAB PO DAILY BLOOD THINNER (Reported) with food Rosuvastatin Calcium (Crestor) 20 MG TABLET 1 TAB PO QPM CHOLESTEROL ( Reported) Spironolactone 25 MG TABLET 1 TAB PO DAILY DIURETIC (Reported) Past History Travel History Traveled to [place] past 21 day No Medical History Neurological: NONE EENT: NONE Cardiovascular: AFIB, hypertension, hyperlipidemia Respiratory: bronchitis, pulmonary hypertension Gastrointestinal: NONE Hepatic: NONE Renal: NONE Musculoskeletal: NONE Psychiatric: NONE Endocrine: diabetes, hyperthyroidism Blood Disorders: NONE Cancer(s): 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 child Services at Home: None Primary Language: Rwandan ETOH Use: denies use Illicit Drug Use: denies illicit drug use Functional Ability ADLs Independent: dressing, eating, toileting, bathing. Ambulation: independent IADLs Independent: shopping, housework, finances, food prep, telephone, transportation , medication admin. Review of Systems Review of Systems Constitutional: Reports: chills. Denies: fever, weakness. EENTM: Denies: blurred vision. Cardiovascular: Denies: chest pain, palpitations. Respiratory: Denies: cough, orthopnea, short of breath, wheezing. GI: Denies: abdominal pain, diarrhea, nausea, vomiting. Genitourinary: Denies: no symptoms. Musculoskeletal: Reports: see HPI, muscle stiffness. Skin: Denies: no symptoms. Neurological/Psychological: Denies: no symptoms. Hematologic/Endocrine: Denies: no symptoms. Immunologic/Allergic: Denies: no symptoms. All Other Systems: Reviewed and Negative Exam & Diagnostic Data Last 24 Hrs of Vital Signs/I&O Vital Signs Date Time Temp Pulse Resp B/P B/P Pulse O2 O2 Flow FiO2 Mean Ox Delivery Rate 01/01 1536 98.4 117 16 124/77 95 Nasal 2.0L Cannula 01/01 1346 115 01/01 1316 133 96 Nasal 2.0L Cannula 01/01 1255 145 90 Room Air 01/01 1240 161 01/01 1226 96.8 127 16 130/75 94 Room Air Intake & Output 01/01 1600 01/01 0800 01/01 0000 Intake Total 0 Output Total Balance 0 Intake, Oral 0 Patient 175 lb Weight Weight Reported by Patient Measurement Method Physical Exam General Appearance Alert, Oriented X3, Cooperative, No Acute Distress Skin No Rashes, No Breakdown, No Significant Lesion Skin Temp/Moisture Exam: Warm/Dry Sepsis Skin Exam (color): Normal for Ethnicity HEENT Atraumatic, PERRLA, EOMI, Mucous Membr. moist/pink Neck Supple, No JVD Cardiovascular Normal S1, Normal S2, No Murmurs, irregularly irregular Lungs Basal cracles bilaterally more prominent on the right Abdomen Normal Bowel Sounds, Soft, No Tenderness Neurological Normal Speech, Strength at 5/5 X4 Ext, Normal Tone Extremities No Clubbing, No Cyanosis, No Edema Vascular Normal Pulses Last 24 Hrs of Labs/Mateusz: Laboratory Tests 01/01/18 1250: Anion Gap 14, Estimated GFR > 60, BUN/Creatinine Ratio 31.4 H, Glucose 180 H, Calcium 5.8 *L, Magnesium 0.9 *L, Total Bilirubin 0.4, AST 21, ALT 20, Alkaline Phosphatase 54, Troponin I < 0.01, Total Protein 7.0, Albumin 4.0, Globulin 3.0, Albumin/Globulin Ratio 1.3, 25-OH Vitamin D Total Pending, Free T4 1.17, Total T3 0.89 L, TSH &T3 &Free T4 Intrp 9.350 H, PTH Intact Pending, D-Dimer High Sensitivty < 200, CBC w Diff NO MAN DIFF REQ, RBC 5.34, MCV 66.6 L, MCH 21.1 L , MCHC 31.6 L, RDW 15.5 H, MPV 8.6, Gran % 74.5, Lymphocytes % 20.7, Monocytes % 4.3, Eosinophils % 0.1, Basophils % 0.4, Absolute Granulocytes 5.1, Absolute Lymphocytes 1.4, Absolute Monocytes 0.3, Absolute Eosinophils 0, Absolute Basophils 0 Diagnostic Data EKG Results Atrial fibrillation 160 bpm normal axis no ST-T wave changes CXR Results Cardiomegaly no acute pulmonary changes Assessment/Plan Assessment: This is a 72 years old lady with past medical history of hypertension diabetes mellitus hypothyroidism status post thyroidectomy 3 months ago who was supposed to be on magnesium and calcium supplements and he presenting with muscle stiffness/spasm and found to have fairly low calcium and magnesium of 5.8 and 0.9. This patient is presenting with first episode of severe hypocalcemia and hypomagnesemia, she has been on Lasix 80 mg daily and spironolactone 25 mg daily , diuretics can exacerbate hypocalcemia and hypomagnesemia. This patient has diabetes mellitus and uncontrolled diabetes can also contribute towards hypomagnesemia. Another important cause is alcohol intake but the patient denies taking any alcohol. 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 fib in rapid ventricular rate. Problem list Hypocalcemia Severe hypomagnesemia A. fib with rapid ventricular rate Hypothyroidism status post thyroidectomy Diabetes mellitus Hypertension Hyperlipidemia Admit the patient to intensive care unit Vital signs every shift Metabolic Continue to replace magnesium IV with 1 mg magnesium every 2 hours and follow magnesium level every 4 hours Received 2 ampules of calcium gluconate in the ER Give oral calcium carbonate 650mg 4 tablets stat Continue with oral calcium supplementation Continue to monitor calcium levels every 4 hours Will hold metformin and keep the patient on insulin sliding scale Accu-Cheks 3 times a day at bedtime Cardiovascular Patient is having A. fib with RVR and she is also hypertensive We will restart Cardizem 240 mg daily Patient will get IV push off Cardizem for high heart rate Diuretics and known to exacerbate hypomagnesemia and hypocalcemia, we will hold On and Lasix, consider to restart if patient experienced hypoxia. 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 fib and will cover for DVT prophylaxis Patient is full code As Ranked By This Provider Problem List: 1. Hypomagnesemia 2. Atrial fibrillation with RVR 3. Hypocalcemia 4. HTN (hypertension) 5. Hypothyroidism 6. Diabetes mellitus Core Measures/Misc (04/11) Acute Coronary Syndrome ACS Diagnosis: No Congestive Heart Failure Congestive Heart Failure Diagnosis No Cerebrovascular Accident CVA/TIA Diagnosis: No VTE (View Protocol) VTE Risk Factors Age>40 No Mechanical VTE Prophylaxis d/t N/A MechProphylax Ordered No VTE Pharm Prophylaxis d/t NA PharmProphylax ordered Sepsis (View protocol) Sepsis Present: No If YES complete Sepsis Event Note If YES complete Sepsis Event Note Resident Review Statement Resident Statement: examined this patient, Assessment and review as above Marilin Guerrier MD 01/01/18 1757: Core Measures/Misc (04/11) Sepsis (View protocol) If YES complete Sepsis Event Note If YES complete Sepsis Event Note Attending MD Review Statement Attending Statement Attending MD Statement: examined this patient, discuss w/resident/PA/FISH FROG OR OYSTER FARMER, agreed w/resident/PA/FISH FROG OR OYSTER FARMER, reviewed EMR data (avail), discussed with nursing, amended to note Attending Assessment/Plan: Patient seen and examined. History is as documented by the resident above. Patient is currently resting comfortably not in any acute distress. Denies any pain. Etiology of her hypocalcemia appears multifactorial. She is significantly magnesium deficient which can cause hypocalcemia. She is also on a diuretic therapy. Her recent history of thyroidectomy raises concern for injury of the parathyroid gland leading to hypoparathyroidism. Given the significantly low levels of calcium and magnesium she needs inpatient management. She will be admitted to the intensive care unit for close monitoring. Plan: -Admit to the inpatient medical service. -Check vitamin D as well as PTH levels. -Continue supplementation of magnesium intravenously. -She has received samples of Gluconate in the ER. Continue Oral Calcium Supplementation. -Monitor calcium levels and magnesium levels daily. -Obtain records of her recent hospitalization at [facility]. -A TSH level is elevated suggesting subpar thyroid supplementation however it appears the patient is noncompliant with her regimen. Continue her home dose for now. Follow-up with endocrinology service. -Hold diuretic therapy for now. Continue Cardizem for rate control. Monitor closely for evidence of pulmonary vascular overload. Notify her cardiology service on Wednesday.
--- NOTE | 2018-01-01 17:58 | Admission Certification ---
Admission Certification Certification Statement - As attending physician, I certify that at the time of - admission, based on clinical presentation, severity of - symptoms, need for further diagnostic testing and - therapeutic interventions, and risk of adverse outcomes - without in-hospital treatment, in my clinical assessment, - this patient requires an acute hospital stay for a minimum - of two nights or longer. I have also considered psychsocial - factors such as support system, advanced age, financial - issues, cognitive issues, and failed out-patient treatments, - past re-admission history, safety of patient, and lack of - compliance as applicable. Specific rationale supporting this admission is: Patient requires hospitalization for management of her hypocalcemia.
--- NOTE | 2018-01-01 18:17 | Cons- Endocrinology ---
General Information and HPI Consulting Request Date of Consult: 01/01/18 Requested By: medical staff Reason for Consult: alysia hypocalcemia and hypomagnesemia Source of Information: patient, old records Exam Limitations: language barrier History of Present Illness: I was asked to see this patient because of severe hypomagnesemia and severe hypocalcemia. The patient presented to the emergency room with some numbness and tingling and cramping of her muscles and perhaps some tetany. The patient apparently had a total thyroidectomy for hyperthyroidism about 3 months ago. She was placed on levothyroxine 137 mcg daily. She was also sent home on some calcium and magnesium as well as calcitriol. It is not known if she is truly compliant on her medications at home. In the ER the patient presents with a calcium of 5.8 and albumin of 4.0. Her magnesium is 0.9. Her renal function is normal and her potassium is 3.5. Her thyroid tests revealed that her TSH is 9.3. The patient apparently has a history of atrial fibrillation and when she presented her ventricular rate was rapid. She has received some diltiazem. We have placed her on intravenous magnesium supplementation as well as magnesium by mouth at this time. In addition we have given her calcium gluconate IV and have now started some calcium by mouth as well as calcitriol. Allergies/Medications Allergies: Coded Allergies: NO KNOWN ALLERGIES (06/13/14) Home Med List: Albuterol Sulfate (Proair Hfa) 90 MCG HFA.AER.AD 2 PUF INH Q4H PRN SOB/ WHEEZING (Reported) Calcitriol 0.5 MCG CAPSULE 1 CAP PO DAILY SUPPLEMENT (Reported) Calcium Carbonate (Oysco-500) 500 MG CALCIUM (1,250 MG) TABLET 1 TAB PO 4XDAILY SUPPLEMENT (Reported) Diltiazem HCl (Diltiazem 24HR ER) 240 MG CAP.ER.24H 1 CAP PO DAILY HEART/BP ( Reported) Ferrous Sulfate 324 MG (65 MG IRON) TABLET.DR 1 TAB PO DAILY SUPPLEMENT ( Reported) Fluticasone Propionate (Flovent Hfa) 220 MCG AER.W.ADAP 1 PUFF INH BID RESPIRATORY (Reported) Furosemide (Lasix) 80 MG TABLET 1 TAB PO QHS DIURETIC (Reported) Levothyroxine Sodium 137 MCG TABLET 1 TAB PO DAILY THYROID (Reported) Losartan Potassium (Unknown Strength) TABLET 100 MG PO DAILY HEART/BP ( Reported) Magnesium Oxide (Magnesium) 400 MG CAPSULE 1 CAP PO BID SUPPLEMENT (Reported) Metformin HCl (Glucophage) 850 MG TABLET 1 TAB PO BID DM (Reported) Metoprolol Tartrate (Lopressor) 50 MG TABLET 2 TAB PO QAM HEART/BP (Reported) Metoprolol Tartrate (Lopressor) 50 MG TABLET 1.5 TAB PO QPM HEART/BP ( Reported) Potassium Chloride 20 MEQ TAB.ER.PRT 1 TAB PO DAILY SUPPLEMENT (Reported) Rivaroxaban (Xarelto) 20 MG TABLET 1 TAB PO DAILY BLOOD THINNER (Reported) with food Rosuvastatin Calcium (Crestor) 20 MG TABLET 1 TAB PO QPM CHOLESTEROL ( Reported) Spironolactone 25 MG TABLET 1 TAB PO DAILY DIURETIC (Reported) Past History Travel History Traveled to [place] past 21 day No Medical History Neurological: NONE EENT: NONE Cardiovascular: AFIB, hypertension, hyperlipidemia Respiratory: bronchitis, pulmonary hypertension Gastrointestinal: NONE Hepatic: NONE Renal: NONE Musculoskeletal: NONE Psychiatric: NONE Endocrine: diabetes, hyperthyroidism Blood Disorders: NONE Cancer(s): 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 child Services at Home: None Primary Language: Yi ETOH Use: denies use Illicit Drug Use: denies illicit drug use Functional Ability ADLs Independent: dressing, eating, toileting, bathing. Ambulation: independent IADLs Independent: shopping, housework, finances, food prep, telephone, transportation , medication admin. Exam & Diagnostic Data Last 24 Hrs of Vital Signs/I&O Vital Signs Date Time Temp Pulse Resp B/P B/P Pulse O2 O2 Flow FiO2 Mean Ox Delivery Rate 01/01 1725 98.5 108 18 142/91 96 Nasal 2.0L Cannula 01/01 1536 98.4 117 16 124/77 95 Nasal 2.0L Cannula 01/01 1346 115 01/01 1316 133 96 Nasal 2.0L Cannula 01/01 1255 145 90 Room Air 01/01 1240 161 01/01 1226 96.8 127 16 130/75 94 Room Air Intake & Output 01/01 1600 01/01 0800 01/01 0000 Intake Total 0 Output Total Balance 0 Intake, Oral 0 Patient 175 lb Weight Weight Reported by Patient Measurement Method Vital Signs Date Time Temp Pulse Resp B/P B/P Pulse O2 O2 Flow FiO2 Mean Ox Delivery Rate 01/01 1725 98.5 108 18 142/91 96 Nasal 2.0L Cannula 01/01 1536 98.4 117 16 124/77 95 Nasal 2.0L Cannula 01/01 1346 115 01/01 1316 133 96 Nasal 2.0L Cannula 01/01 1255 145 90 Room Air 01/01 1240 161 01/01 1226 96.8 127 16 130/75 94 Room Air Intake & Output 01/01 1600 01/01 0800 01/01 0000 Intake Total 0 Output Total Balance 0 Intake, Oral 0 Patient 175 lb Weight Weight Reported by Patient Measurement Method Physical Exam General Appearance: alert, awake, comfortable Head: normal appearance Eyes: Bilateral: normal appearance. Neck: thyroidectomy scar Cardiovascular: regular rate/rhythm Gastrointestinal: soft, non-tender Extremities: normal inspection Labs/Mateusz Results: Laboratory Tests 01/01 1250 Chemistry Sodium (137 - 145 mmol/L) 141 Potassium (3.5 - 5.1 mmol/L) 3.5 Chloride (98 - 107 mmol/L) 93 L Carbon Dioxide (22 - 30 mmol/L) 34 H Anion Gap (5 - 16) 14 BUN (7 - 17 mg/dL) 22 H Creatinine (0.5 - 1.0 mg/dL) 0.7 Estimated GFR (>60 ml/min) > 60 BUN/Creatinine Ratio (7 - 25 %) 31.4 H Glucose (65 - 99 mg/dL) 180 H Calcium (8.4 - 10.2 mg/dL) 5.8 *L Magnesium (1.6 - 2.3 mg/dL) 0.9 *L Total Bilirubin (0.2 - 1.3 mg/dL) 0.4 AST (14 - 36 U/L) 21 ALT (9 - 52 U/L) 20 Alkaline Phosphatase (<127 U/L) 54 Troponin I (< 0.11 ng/ml) < 0.01 Total Protein (6.3 - 8.2 g/dL) 7.0 Albumin (3.5 - 5.0 g/dL) 4.0 Globulin (1.9 - 4.2 gm/dL) 3.0 Albumin/Globulin Ratio (1.1 - 2.2 %) 1.3 25-OH Vitamin D Total (30 - 100 ng/ml) 40.6 Free T4 (0.78 - 2.44 ng/dL) 1.17 Total T3 (0.97 - 1.69 ng/mL) 0.89 L TSH &T3 &Free T4 Intrp (0.270 - 4.20 uIU/mL) 9.350 H PTH Intact (18.4 - 80.1 pg/ML) 21.6 Coagulation D-Dimer High Sensitivty (0 - 243 ng/ml) < 200 Hematology CBC w Diff NO MAN DIFF REQ WBC (4.8 - 10.8 /CUMM) 6.8 RBC (4.20 - 5.40 /CUMM) 5.34 Hgb (12.0 - 16.0 G/DL) 11.3 L Hct (37 - 47 %) 35.6 L MCV (81.0 - 99.0 FL) 66.6 L MCH (27.0 - 31.0 PG) 21.1 L MCHC (33.0 - 37.0 G/DL) 31.6 L RDW (11.5 - 14.5 %) 15.5 H Plt Count (130 - 400 /CUMM) 239 MPV (7.4 - 10.4 FL) 8.6 Gran % (42.2 - 75.2 %) 74.5 Lymphocytes % (20.5 - 51.1 %) 20.7 Monocytes % (1.7 - 9.3 %) 4.3 Eosinophils % (0 - 5 %) 0.1 Basophils % (0.0 - 2.0 %) 0.4 Absolute Granulocytes (1.4 - 6.5 /CUMM) 5.1 Absolute Lymphocytes (1.2 - 3.4 /CUMM) 1.4 Absolute Monocytes (0.10 - 0.60 /CUMM) 0.3 Absolute Eosinophils (0.0 - 0.7 /CUMM) 0 Absolute Basophils (0.0 - 0.2 /CUMM) 0 Assessment/Plan Assessment/Plan This patient presents with severe hypocalcemia and severe hypomagnesemia. The patient had a total thyroidectomy done at [facility] about 3 months ago. She was on Lasix 80 mg daily at home. So far as we know she was not on a proton pump inhibitor and she does not drink alcohol. She has a history of atrial fibrillation and when she came to the ER she had atrial fibrillation with a rapid ventricular response. She did receive some intravenous diltiazem. We have recommended supplementation with intravenous calcium and magnesium. So far 2 ampules of calcium gluconate have been given over a short period of time and she is receiving a magnesium infusion of 1 g 2 doses. Her labs need to be repeated. Most likely the patient had some damage to her parathyroid glands at the time of her total thyroidectomy and has postsurgical hypoparathyroidism.. The patient's PTH has returned at 21.6. Thus she does make some PTH but the level should be much higher in the face of severe hypocalcemia. Hypomagnesemia, however, also interferes with the function of PTH and may also interfere with the secretion of PTH. Therefore we should repeat her PTH once her magnesium is corrected. After the initial supplementation we will most likely need to give the patient further repletion of her magnesium with 4 g of magnesium sulfate infused over the next 12 hours. In addition if her calcium remains low we can place 10 ampules of calcium gluconate in 1 L of D5W on normal saline and infuse it at a rate of 50 mL/h. Can also place the patient on magnesium supplements by mouth and also calcium carbonate along with calcitriol 0.5 mcg daily. We should check the patient's BUN and creatinine electrolytes albumin calcium and magnesium every 4-6 hours while these infusions are being given. The patient should be placed on a panel monitor in the intensive care unit. Cardiology consult should be done. Should leave the patient on levothyroxine 137 mcg daily which was the dose she was on prior to admission. With regard to her diabetes I would stop the metformin. We can place her on low -dose NovoLog before meals. NovoLog sliding scale before meals should be less than 150 give no insulin, 151-200 give 2 units NovoLog, 201-250 give 3 units NovoLog, 251-300 give 4 units NovoLog, 301-350 give 5 units NovoLog, 351 400 give 6 units NovoLog. We need to watch the patient carefully for fluid overload while these infusions have been given as we know she was on 80 mg of Lasix at home plus Spironolactone. We need to try to get the records from [place] to see if the patient indeed did have hypoparathyroidism after her thyroid surgery. Consult Acknowledgment - Thank you for your consult request.
[2018-01-01 19:51] VITALS: BP 128/80
[2018-01-02] VITALS: BP 110/84
[2018-01-02 01:44] LABS: ABSOLUTE BASOPHIL COUNT 0 /CUMM (0.0-0.2); ABSOLUTE EOSINOPHIL COUNT 0 /CUMM (0.0-0.7); ABSOLUTE LYMPH COUNT 1.7 /CUMM (1.2-3.4); ABSOLUTE MONOCYTE COUNT 0.4 /CUMM (0.10-0.60); BASOPHIL % 0.5 % (0.0-2.0); EOSINOPHIL % 0.6 % (0-5); GRANULOCYTE % 65.4 % (42.2-75.2); HEMATOCRIT 31.5 % (37-47); MEAN CORPUSCULAR HGB 21.2 PG (27.0-31.0); MEAN CORPUSCULAR HGB CONC 31.7 G/DL (33.0-37.0); MEAN CORPUSCULAR VOLUME 66.9 FL (81.0-99.0); MEAN PLATELET VOLUME 8.4 FL (7.4-10.4); PLATELET COUNT 222 /CUMM (130-400); RBC DISTRIBUTION WIDTH 15.3 % (11.5-14.5); WHITE BLOOD CELL COUNT 6.2 /CUMM (4.8-10.8)
--- NOTE | 2018-01-02 08:13 | PN- Att Addend ---
Attending Addendum Attending Brief Note Patient seen and examined. No issues overnight reported by nursing staff. Remains afebrile and hemodynamically stable. Resting comfortably and not in any acute distress. Calcium levels are improving after supplementation initiated yesterday. Magnesium levels are within normal limits. Patient currently comfortable denying any pain. Vital Signs Date Time Temp Pulse Resp B/P B/P Pulse O2 O2 Flow FiO2 Mean Ox Delivery Rate 01/02 0400 96 Nasal 1.0L Cannula 01/02 0000 96 Nasal 1.0L Cannula 01/02 0000 97.3 98 18 110/84 96 Nasal 1.0L Cannula 01/01 1951 97 Nasal 2.0L Cannula 01/01 1951 97.2 124 20 128/80 97 Nasal 2.0L Cannula 01/01 1914 99.0 116 18 128/79 96 Nasal 2.0L Cannula 01/01 1725 98.5 108 18 142/91 96 Nasal 2.0L Cannula 01/01 1536 98.4 117 16 124/77 95 Nasal 2.0L Cannula 01/01 1346 115 01/01 1316 133 96 Nasal 2.0L Cannula 01/01 1255 145 90 Room Air 01/01 1240 161 01/01 1226 96.8 127 16 130/75 94 Room Air General appearance: Well-developed and not in any acute distress. HEENT: Anicteric, no pallor, pupils equal and reactive. Neck: Supple with no jugular venous distention. Heart: S1-S2 regular with no audible murmur. Lungs: Adequate and symmetric air entry bilaterally with no added sounds. Abdomen: Nondistended with normal bowel sounds. Soft, nontender with no palpable masses. Extremities: No pedal edema. No cyanosis. Skin: Intact Laboratory Tests 01/02/18119: Troponin I < 0.01 01/02/18119: Anion Gap 10, Estimated GFR > 60, Glucose 110 H, Calcium 6.8 L, Phosphorus 5.5 H, Magnesium 1.9, Total Bilirubin 0.2, AST 16, ALT 18, Albumin 3.1 L, CBC w Diff NO MAN DIFF REQ, RBC 4.70, MCV 66.9 L, MCH 21.2 L, MCHC 31.7 L, RDW 15.3 H, MPV 8.4, Gran % 65.4, Lymphocytes % 27.2, Monocytes % 6.3, Eosinophils % 0.6 , Basophils % 0.5, Absolute Granulocytes 4.0, Absolute Lymphocytes 1.7, Absolute Monocytes 0.4, Absolute Eosinophils 0, Absolute Basophils 0 01/01/18 2120: Calcium 5.7 *L, Magnesium 1.6 01/01/18 1905: Calcium 5.9 *L, Magnesium 10.9 H, Troponin I < 0.01 01/01/18 1751: Calcium Cancelled, Magnesium Cancelled 01/01/18 1250: Anion Gap 14, Estimated GFR > 60, BUN/Creatinine Ratio 31.4 H, Glucose 180 H, Hemoglobin A1c Pending, Calcium 5.8 *L, Magnesium 0.9 *L, Total Bilirubin 0.4, AST 21, ALT 20, Alkaline Phosphatase 54, Troponin I < 0.01, Total Protein 7.0, Albumin 4.0, Globulin 3.0, Albumin/Globulin Ratio 1.3, 25-OH Vitamin D Total 40.6, Free T4 1.17, Total T3 0.89 L, TSH &T3 &Free T4 Intrp 9.350 H, PTH Intact 21.6, D-Dimer High Sensitivty < 200, CBC w Diff NO MAN DIFF REQ, RBC 5.34 , MCV 66.6 L, MCH 21.1 L, MCHC 31.6 L, RDW 15.5 H, MPV 8.6, Gran % 74.5, Lymphocytes % 20.7, Monocytes % 4.3, Eosinophils % 0.1, Basophils % 0.4, Absolute Granulocytes 5.1, Absolute Lymphocytes 1.4, Absolute Monocytes 0.3, Absolute Eosinophils 0, Absolute Basophils 0 Microbiology 01/01 1930 UPPER RESP: Surveillance Culture - RECD 01/01 1930 GI: Surveillance Culture - RECD Problems: 1. Hypocalcemia 2. Hypomagnesia 3. Atrial fibrillation 4. Hypothyroidism status post thyroidectomy. 5. Diabetes mellitus 6. Hypertension Plan: -Continue calcium supplementation orally. Follow-up with the endocrinology service regarding need for any further intravenous calcium supplementation. -Heart rate has improved compared to presentation. Continue diltiazem and metoprolol. Continue anticoagulation therapy with Xarelto. If patient still having RVR obtain cardiology consultation. -Continue thyroid supplementation with home dose of levothyroxine. -Check iron profile stool guaiac for further workup of her microcytic anemia.
--- NOTE | 2018-01-02 08:44 | PN- Housestaff ---
Subjective Follow-up For: Symptomatic hypocalcemia status post total thyroidectomy and right upper parathyroidectomy Hypomagnesemia Complaints: no complaints Tele-Events Since Last Visit: Persistent tachycardia, EKG in the morning showed evidence of atrial fibrillation with controlled ventricular rate in range of 91. QTC was 483. Subjective: Patient is seen and examined at the bedside. She was not having any active complaints. Review of Systems Constitutional: Denies: no symptoms. Objective Last 24 Hrs of Vital Signs/I&O Vital Signs Date Time Temp Pulse Resp B/P B/P Pulse O2 O2 Flow FiO2 Mean Ox Delivery Rate 01/02 0400 96 Nasal 1.0L Cannula 01/02 0000 96 Nasal 1.0L Cannula 01/02 0000 97.3 98 18 110/84 96 Nasal 1.0L Cannula 01/01 1951 97 Nasal 2.0L Cannula 01/01 1951 97.2 124 20 128/80 97 Nasal 2.0L Cannula 01/01 1914 99.0 116 18 128/79 96 Nasal 2.0L Cannula 01/01 1725 98.5 108 18 142/91 96 Nasal 2.0L Cannula 01/01 1536 98.4 117 16 124/77 95 Nasal 2.0L Cannula 01/01 1346 115 01/01 1316 133 96 Nasal 2.0L Cannula 01/01 1255 145 90 Room Air 01/01 1240 161 01/01 1226 96.8 127 16 130/75 94 Room Air Intake & Output 01/02 1600 10 0800 01/02 0000 Intake Total 598 1372.8 Output Total 350 550 Balance 248 822.8 Intake, IV 518 172.8 Intake, Oral 80 1200 Number 0 0 Bowel Movements Output, Urine 350 550 Patient 78.6 kg Weight Weight Bed scale Measurement Method Physical Exam General Appearance: Alert, Oriented X3, Cooperative, No Acute Distress Skin: No Rashes, No Breakdown, No Significant Lesion HEENT: Atraumatic, PERRLA, EOMI Neck: Supple, No JVD Cardiovascular: Normal S1, Normal S2, irregular heart rate, Lungs: bilateral basilar crackles and decreased air entry, occasional wheezing Abdomen: Soft, No Tenderness Neurological: Normal Speech, Normal Tone, Sensation Intact Extremities: No Clubbing, No Cyanosis, No Edema Vascular: Normal Pulses, Pulses Symmetrical Current Medications: Current Medications Sig/Diana Start time Last Medication Dose Route Stop Time Status Admin Albuterol Sulfate 2 PUF Q4H PRN 01/01 1745 AC INH Atorvastatin Calcium 80 MG 1700 01/02 1700 AC PO Calcitriol 0.5 MCG DAILY 01/02 900 AC PO Calcitriol 0.5 MCG ONCE ONE 01/01 1745 DC 01/01 PO 01/01 1746 2033 Calcitriol 0.25 MCG ONE ONE 01/01 1700 CAN IV 01/01 1701 Calcium Carbonate 650 MG TID 01/01 2200 CAN PO Calcium Carbonate 2,500 MG DAILY 01/01 1715 AC 01/01 PO 2033 Calcium Gluconate 10 GM ONCE ONE 01/01 1945 AC 01/01 Sodium Chloride 1,000 ML IV 01/02 1544 2141 Calcium Gluconate 1 GM ONCE ONE 01/01 1545 DC 01/01 Sodium Chloride 100 ML IV 01/01 1644 1647 Calcium Gluconate 0 .STK-MED ONE 01/01 1504 DC IV Calcium Gluconate 1 GM ONCE ONE 01/01 1445 DC 01/01 Sodium Chloride 100 ML IV 01/01 1544 1547 Diltiazem HCl 240 MG DAILY 01/02 900 AC PO Diltiazem HCl 10 MG ONCE ONE 01/01 1315 DC 01/01 IV PUSH 01/01 1316 1320 Diltiazem HCl 0 .STK-MED ONE 01/01 1249 DC .ROUTE Diltiazem HCl 10 MG ONCE ONE 01/01 1245 DC 01/01 IV PUSH 01/01 1246 1258 Ferrous Sulfate 325 MG DAILY 01/02 900 AC PO Fluticasone 2 PUF BID 01/01 2100 AC 01/01 Propionate INH 2033 Insulin Aspart 0 TIDAC 01/03 800 AC SC Levothyroxine Sodium 0.137 MG DAILY AC 01/02 07 AC 01/02 PO 06 Losartan Potassium 100 MG DAILY 01/02 900 AC PO Magnesium Oxide 400 MG ONE ONE 01/02 0745 DC PO 01/02 0746 Magnesium Oxide 400 MG BID 01/01 2100 AC 01/01 PO 203 Magnesium Sulfate 4 GM ONE ONE 01/02 2000 DC 01/01 Sodium Chloride 250 ML IV 01/02 0759 2243 Magnesium Sulfate 1 GM Q2H 01/01 1515 DC 01/01 Dextrose/Water 100 ML IV 01/01 1914 1942 Metoprolol Tartrate 100 MG QAM 01/02 900 AC PO Metoprolol Tartrate 75 MG QPM 01/01 2100 AC 01/01 PO 2032 Non-Formulary 0 SEE ADMIN CRITERIA 01/01 1915 DC Medication ANY Non-Formulary 0 SEE ADMIN CRITERIA 01/01 1915 DC Medication ANY Potassium Chloride 40 MEQ ONCE ONE 01/02 0745 DC PO 01/02 0746 Rivaroxaban 20 MG DAILY 01/02 0900 AC PO Last 24 Hrs of Lab/Mateusz Results Last 24 Hrs of Labs/Mics: Laboratory Tests 01/02/18 0901: Sodium Pending, Potassium Pending, Chloride Pending, Carbon Dioxide Pending, Anion Gap Pending, BUN Pending, Creatinine Pending, BUN/Creatinine Ratio Pending , Calcium Pending, Magnesium Pending 01/02/18 0120: Troponin I < 0.01 01/02/18 0120: PTH Intact Pending 01/02/18 0120: Anion Gap 10, Estimated GFR > 60, Glucose 110 H, Calcium 6.8 L, Phosphorus 5.5 H, Magnesium 1.9, Total Bilirubin 0.2, AST 16, ALT 18, Albumin 3.1 L, CBC w Diff NO MAN DIFF REQ, RBC 4.70, MCV 66.9 L, MCH 21.2 L, MCHC 31.7 L, RDW 15.3 H, MPV 8.4, Gran % 65.4, Lymphocytes % 27.2, Monocytes % 6.3, Eosinophils % 0.6 , Basophils % 0.5, Absolute Granulocytes 4.0, Absolute Lymphocytes 1.7, Absolute Monocytes 0.4, Absolute Eosinophils 0, Absolute Basophils 0 01/01/180: Calcium 5.7 *L, Magnesium 1.6 01/01/18 1905: Calcium 5.9 *L, Magnesium 10.9 H, Troponin I < 0.01 01/01/18 1751: Calcium Cancelled, Magnesium Cancelled 01/01/18 1250: Anion Gap 14, Estimated GFR > 60, BUN/Creatinine Ratio 31.4 H, Glucose 180 H, Hemoglobin A1c Pending, Calcium 5.8 *L, Magnesium 0.9 *L, Total Bilirubin 0.4, AST 21, ALT 20, Alkaline Phosphatase 54, Troponin I < 0.01, Total Protein 7.0, Albumin 4.0, Globulin 3.0, Albumin/Globulin Ratio 1.3, 25-OH Vitamin D Total 40.6, Free T4 1.17, Total T3 0.89 L, TSH &T3 &Free T4 Intrp 9.350 H, PTH Intact 21.6, D-Dimer High Sensitivty < 200, CBC w Diff NO MAN DIFF REQ, RBC 5.34 , MCV 66.6 L, MCH 21.1 L, MCHC 31.6 L, RDW 15.5 H, MPV 8.6, Gran % 74.5, Lymphocytes % 20.7, Monocytes % 4.3, Eosinophils % 0.1, Basophils % 0.4, Absolute Granulocytes 5.1, Absolute Lymphocytes 1.4, Absolute Monocytes 0.3, Absolute Eosinophils 0, Absolute Basophils 0 Microbiology 01/01 1930 UPPER RESP: Surveillance Culture - RECD 01/01 1930 GI: Surveillance Culture - RECD Lines/Diet/Fluids Fluids/Infusions: calcium gluconate Assessment/Plan Assessment: Patient is 72-year-old female with multiple medical problems presented with chief complaints of tingling, numbness and muscle spasm all over the body. 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 * History of atrial fibrillation on diltiazem, metoprolol, Xarelto * History of asthma. * Beta thalassemia. * Type 2 diabetes. * Dyslipidemia. * Hypertension - On furosemide 80 milligrams, Spirinolacton an 25 milligrams * Iron deficiency anemia. * Mitral valve disorder. * Obstructive sleep apnea. * Osteoporosis. * Vitamin D deficiency Surgical history-cholecystectomy, appendicectomy Vital signs -afebrile, pulse 112, blood pressure 117/78, SPO2 -95% on 1 liter of oxygen by nasal cannula, intake 1971/900. Physical exam -oriented to time, place and person, lungs -bilateral basilar crackles up to 2 thirds of the lungs. Assessment and plan - Symptomatic Hypocalcemia, hypomagnesemia secondary to thyroidectomy/right upper parathyroidectomy- * She presented with serum calcium of 5.8, treated by IV calcium gluconate, her repeated calcium was 8.7. Discussed with Dr. Tucker advised to stop the calcium gluconate drip, calcium carbonate 2.5 grams daily. * we'll start the patient on calcium carbonate 650 milligrams twice a day. * Her baseline Magnesium was 0.9 and repeated magnesium come back to 2.2. Discussed with Dr. Tucker advised to stop the magnesium drip and start the patient on magnesium oxide 400 milligrams twice a day. Advised to watch for the diarrhea. Atrial fibrillation with controlled ventricular rate- * We will continue patient on diltiazem and metoprolol. * We'll continue patient on Xarelto * We'll follow Cardiologic consult * Repeat the chest x-ray Type 2 diabetes - * Her blood glucoses are in the range of 90-145. * We will give NovoLog according to the sliding scale. CODE STATUS-full code. DVT prophylaxis-Xarelto Diet-consistent carbohydrate. 3. Problem List: 1. Hypothyroidism 2. Diabetes mellitus 3. Hypomagnesemia 4. Atrial fibrillation with RVR 5. Hypocalcemia 6. HTN (hypertension) Pain Ratin Pain Location: n/a Pain Goal: Remain pain free Pain Plan: Avoid sedative hypnotics. Tomorrow's Labs & Rationales: Follow-up CBC, BEP, calcium, magnesium, PTH Follow-up CBC, BEP, calcium, magnesium, PTH
--- NOTE | 2018-01-02 08:56 | PN- Endocrinology ---
Assessment/Plan Endoscopy Assessment: The patient feels much better this morning. The numbness and tingling of her fingers and toes on and her muscle cramps have also subsided. We were able to review the operative report in EPIC from her total thyroidectomy done at [place]. This reveals that she was diagnosed with toxic nodular goiter and underwent a total thyroidectomy. One parathyroid gland was sacrificed. As an incidental finding there was evidence of multi focal papillary carcinoma with the largest focus measuring 0.8 cm. The patient's calcium this morning is 6.8 with a magnesium of 1.9 and an albumin of 3.1. Corrected calcium is 7.6. Plan: Suggest continue the calcium drip at 50 cc/h. Repeat the patient's labs including BUN/creatinine electrolytes calcium magnesium albumin at 10 am today. If the calcium continues to improve we may be able to stop the calcium drip at that time. Since the patient's magnesium has normalized I would recheck the patient's parathyroid hormone level on the bloods that were drawn early this morning. I would continue the patient on calcitriol 0.5 mcg daily along with calcium carbonate by mouth and magnesium by mouth. The patient should have a repeat chest x-ray today to check for congestive heart failure since her Lasix is being held. Subjective Subjective: Feels improved Objective Last 24 Hrs of Vital Signs/I&O Vital Signs Date Time Temp Pulse Resp B/P B/P Pulse O2 O2 Flow FiO2 Mean Ox Delivery Rate 01/02 0400 96 Nasal 1.0L Cannula 01/02 0000 96 Nasal 1.0L Cannula 01/02 0000 97.3 98 18 110/84 96 Nasal 1.0L Cannula 01/01 1951 97 Nasal 2.0L Cannula 01/01 1951 97.2 124 20 128/80 97 Nasal 2.0L Cannula 01/01 1914 99.0 116 18 128/79 96 Nasal 2.0L Cannula 01/01 1725 98.5 108 18 142/91 96 Nasal 2.0L Cannula 01/01 1536 98.4 117 16 124/77 95 Nasal 2.0L Cannula 01/01 1346 115 01/01 1316 133 96 Nasal 2.0L Cannula 01/01 1255 145 90 Room Air 01/01 1240 161 01/01 1226 96.8 127 16 130/75 94 Room Air Intake & Output 01/02 1600 01/02 0800 01/02 0000 Intake Total 598 1372.8 Output Total 350 550 Balance 248 822.8 Intake, IV 518 172.8 Intake, Oral 80 1200 Number 0 0 Bowel Movements Output, Urine 350 550 Patient 173 lb Weight Weight Bed scale Measurement Method Vital Signs Date Time Temp Pulse Resp B/P B/P Pulse O2 O2 Flow FiO2 Mean Ox Delivery Rate 01/02 0400 96 Nasal 1.0L Cannula 01/02 0000 96 Nasal 1.0L Cannula 01/02 0000 97.3 98 18 110/84 96 Nasal 1.0L Cannula 01/01 1951 97 Nasal 2.0L Cannula 01/01 1951 97.2 124 20 128/80 97 Nasal 2.0L Cannula 01/01 1914 99.0 116 18 128/79 96 Nasal 2.0L Cannula 01/01 1725 98.5 108 18 142/91 96 Nasal 2.0L Cannula 01/01 1536 98.4 117 16 124/77 95 Nasal 2.0L Cannula 01/01 1346 115 01/01 1316 133 96 Nasal 2.0L Cannula 01/01 1255 145 90 Room Air 01/01 1240 161 01/01 1226 96.8 127 16 130/75 94 Room Air Intake & Output 01/02 1600 01/02 0800 01/02 0000 Intake Total 598 1372.8 Output Total 350 550 Balance 248 822.8 Intake, IV 518 172.8 Intake, Oral 80 1200 Number 0 0 Bowel Movements Output, Urine 350 550 Patient 173 lb Weight Weight Bed scale Measurement Method Physical Exam General Appearance: alert, awake, comfortable Head: normal appearance Neck: normal inspection Respiratory: normal breath sounds Cardiovascular: regular rate/rhythm Abdomen: normal bowel sounds Extremities: normal inspection Current Medications: Current Medications Sig/Diana Start time Last Medication Dose Route Stop Time Status Admin Albuterol Sulfate 2 PUF Q4H PRN 01/01 174 AC INH Atorvastatin Calcium 80 MG 1700 01/020 AC PO Calcitriol 0.5 MCG DAILY 01/02 900 AC PO Calcitriol 0.5 MCG ONCE ONE 01/01 1745 DC 01/01 PO 01/01 Calcitriol 0.25 MCG ONE ONE 01/01 1700 CAN IV 01/01 170 Calcium Carbonate 650 MG TID 01/01 2200 CAN PO Calcium Carbonate 2,500 MG DAILY 01/01 1715 AC 01/01 PO 2033 Calcium Gluconate 10 GM ONCE ONE 01/01 1945 AC 01/01 Sodium Chloride 1,000 ML IV 01/02 1544 2141 Calcium Gluconate 1 GM ONCE ONE 01/01 1545 DC 01/01 Sodium Chloride 100 ML IV 01/01 1644 1647 Calcium Gluconate 0 .STK-MED ONE 01/01 1504 DC IV Calcium Gluconate 1 GM ONCE ONE 01/01 1445 DC 01/01 Sodium Chloride 100 ML IV 01/01 1544 1547 Diltiazem HCl 240 MG DAILY 01/02 900 AC PO Diltiazem HCl 10 MG ONCE ONE 01/01 1315 DC 01/01 IV PUSH 01/01 1316 1320 Diltiazem HCl 0 .STK-MED ONE 01/01 1249 DC .ROUTE Diltiazem HCl 10 MG ONCE ONE 01/01 1245 DC 01/01 IV PUSH 01/01 1246 1258 Ferrous Sulfate 325 MG DAILY 01/02 900 AC PO Fluticasone 2 PUF BID 01/01 2100 AC 01/01 Propionate INH 2033 Insulin Aspart 0 TIDAC 01/03 800 AC SC Levothyroxine Sodium 0.137 MG DAILY AC 01/02 07 AC 01/02 PO 0602 Losartan Potassium 100 MG DAILY 01/02 900 AC PO Magnesium Oxide 400 MG ONE ONE 01/02 0745 DC PO 01/02 0746 Magnesium Oxide 400 MG BID 01/01 2100 AC 01/01 PO 2032 Magnesium Sulfate 4 GM ONE ONE 01/01 2000 DC 01/01 Sodium Chloride 250 ML IV 01/02 0759 2243 Magnesium Sulfate 1 GM Q2H 01/01 1515 DC 01/01 Dextrose/Water 100 ML IV 01/01 191 1942 Metoprolol Tartrate 100 MG QAM 01/02 900 AC PO Metoprolol Tartrate 75 MG QPM 01/01 2100 AC 01/01 PO 2033 Non-Formulary 0 SEE ADMIN CRITERIA 01/01 1915 DC Medication ANY Non-Formulary 0 SEE ADMIN CRITERIA 01/01 1915 DC Medication ANY Potassium Chloride 40 MEQ ONCE ONE 01/02 0745 DC PO 01/02 746 Rivaroxaban 20 MG DAILY 01/02 900 AC PO Current Treatment: Current Medications Sig/Diana Start time Last Medication Dose Route Stop Time Status Admin Albuterol Sulfate 2 PUF Q4H PRN 01/01 1745 AC INH Atorvastatin Calcium 80 MG 1700 01/02 1700 AC PO Calcitriol 0.5 MCG DAILY 01/02 900 AC PO Calcitriol 0.5 MCG ONCE ONE 01/01 1745 DC 01/01 PO 01/01 1742032 Calcitriol 0.25 MCG ONE ONE 01/01 1700 CAN IV 01/01 1701 Calcium Carbonate 650 MG TID 01/01 2200 CAN PO Calcium Carbonate 2,500 MG DAILY 01/01 1715 AC 01/01 PO 2033 Calcium Gluconate 10 GM ONCE ONE 01/01 1945 AC 01/01 Sodium Chloride 1,000 ML IV 01/02 1544 2141 Calcium Gluconate 1 GM ONCE ONE 01/01 1545 DC 01/01 Sodium Chloride 100 ML IV 01/01 1644 1647 Calcium Gluconate 0 .STK-MED ONE 01/01 1504 DC IV Calcium Gluconate 1 GM ONCE ONE 01/01 1445 DC 01/01 Sodium Chloride 100 ML IV 01/01 1544 1547 Diltiazem HCl 240 MG DAILY 01/02 900 AC PO Diltiazem HCl 10 MG ONCE ONE 01/01 1315 DC 01/01 IV PUSH 01/01 1316 1320 Diltiazem HCl 0 .STK-MED ONE 01/01 1249 DC .ROUTE Diltiazem HCl 10 MG ONCE ONE 01/01 1245 DC 01/01 IV PUSH 01/01 1246 1258 Ferrous Sulfate 325 MG DAILY 01/02 900 AC PO Fluticasone 2 PUF BID 01/01 2100 AC 01/01 Propionate INH 2033 Insulin Aspart 0 TIDAC 01/03 800 AC SC Levothyroxine Sodium 0.137 MG DAILY AC 01/02 700 AC 01/02 PO 06 Losartan Potassium 100 MG DAILY 01/02 900 AC PO Magnesium Oxide 400 MG ONE ONE 01/02 0745 DC PO 01/02 0746 Magnesium Oxide 400 MG BID 01/01 2100 AC 01/01 PO 203 Magnesium Sulfate 4 GM ONE ONE 01/02 2000 DC 01/01 Sodium Chloride 250 ML IV 01/02 0759 2243 Magnesium Sulfate 1 GM Q2H 01/01 1515 DC 01/01 Dextrose/Water 100 ML IV 01/01 1914 1942 Metoprolol Tartrate 100 MG QAM 01/02 900 AC PO Metoprolol Tartrate 75 MG QPM 01/01 2100 AC 01/01 PO 203 Non-Formulary 0 SEE ADMIN CRITERIA 01/01 1915 DC Medication ANY Non-Formulary 0 SEE ADMIN CRITERIA 01/01 1915 DC Medication ANY Potassium Chloride 40 MEQ ONCE ONE 01/02 745 DC PO 01/02 746 Rivaroxaban 20 MG DAILY 01/02 0900 AC PO Results Pertinent Lab/Mateusz Results: Laboratory Tests 01/02 01/02 01/02 0120 0120 0120 Chemistry Sodium (137 - 145 mmol/L) 141 Potassium (3.5 - 5.1 mmol/L) 3.5 Chloride (98 - 107 mmol/L) 96 L Carbon Dioxide (22 - 30 mmol/L) 36 H Anion Gap (5 - 16) 10 BUN (7 - 17 mg/dL) 16 Creatinine (0.5 - 1.0 mg/dL) 0.7 Estimated GFR (>60 ml/min) > 60 Glucose (65 - 99 mg/dL) 110 H Calcium (8.4 - 10.2 mg/dL) 6.8 L Phosphorus (2.5 - 4.5 mg/dL) 5.5 H Magnesium (1.6 - 2.3 mg/dL) 1.9 Total Bilirubin (0.2 - 1.3 mg/dL) 0.2 AST (14 - 36 U/L) 16 ALT (9 - 52 U/L) 18 Troponin I (< 0.11 ng/ml) < 0.01 Albumin (3.5 - 5.0 g/dL) 3.1 L PTH Intact Pending Hematology CBC w Diff NO MAN DIFF REQ WBC (4.8 - 10.8 /CUMM) 6.2 RBC (4.20 - 5.40 /CUMM) 4.70 Hgb (12.0 - 16.0 G/DL) 10.0 L Hct (37 - 47 %) 31.5 L MCV (81.0 - 99.0 FL) 66.9 L MCH (27.0 - 31.0 PG) 21.2 L MCHC (33.0 - 37.0 G/DL) 31.7 L RDW (11.5 - 14.5 %) 15.3 H Plt Count (130 - 400 /CUMM) 222 MPV (7.4 - 10.4 FL) 8.4 Gran % (42.2 - 75.2 %) 65.4 Lymphocytes % (20.5 - 51.1 %) 27.2 Monocytes % (1.7 - 9.3 %) 6.3 Eosinophils % (0 - 5 %) 0.6 Basophils % (0.0 - 2.0 %) 0.5 Absolute Granulocytes (1.4 - 6.5 /CUMM) 4.0 Absolute Lymphocytes (1.2 - 3.4 /CUMM) 1.7 Absolute Monocytes (0.10 - 0.60 /CUMM) 0.4 Absolute Eosinophils (0.0 - 0.7 /CUMM) 0 Absolute Basophils (0.0 - 0.2 /CUMM) 0 01/01 01/01 01/01 2120 1905 1751 Chemistry Calcium (8.4 - 10.2 mg/dL) 5.7 *L 5.9 *L Cancelled Magnesium (1.6 - 2.3 mg/dL) 1.6 10.9 H Cancelled Troponin I (< 0.11 ng/ml) < 0.01 01/01 1250 Chemistry Sodium (137 - 145 mmol/L) 141 Potassium (3.5 - 5.1 mmol/L) 3.5 Chloride (98 - 107 mmol/L) 93 L Carbon Dioxide (22 - 30 mmol/L) 34 H Anion Gap (5 - 16) 14 BUN (7 - 17 mg/dL) 22 H Creatinine (0.5 - 1.0 mg/dL) 0.7 Estimated GFR (>60 ml/min) > 60 BUN/Creatinine Ratio (7 - 25 %) 31.4 H Glucose (65 - 99 mg/dL) 180 H Hemoglobin A1c (4.2 - 5.8 %) Pending Calcium (8.4 - 10.2 mg/dL) 5.8 *L Magnesium (1.6 - 2.3 mg/dL) 0.9 *L Total Bilirubin (0.2 - 1.3 mg/dL) 0.4 AST (14 - 36 U/L) 21 ALT (9 - 52 U/L) 20 Alkaline Phosphatase (<127 U/L) 54 Troponin I (< 0.11 ng/ml) < 0.01 Total Protein (6.3 - 8.2 g/dL) 7.0 Albumin (3.5 - 5.0 g/dL) 4.0 Globulin (1.9 - 4.2 gm/dL) 3.0 Albumin/Globulin Ratio (1.1 - 2.2 %) 1.3 25-OH Vitamin D Total (30 - 100 ng/ml) 40.6 Free T4 (0.78 - 2.44 ng/dL) 1.17 Total T3 (0.97 - 1.69 ng/mL) 0.89 L TSH &T3 &Free T4 Intrp (0.270 - 4.20 uIU/mL) 9.350 H PTH Intact (18.4 - 80.1 pg/ML) 21.6 Coagulation D-Dimer High Sensitivty (0 - 243 ng/ml) < 200 Hematology CBC w Diff NO MAN DIFF REQ WBC (4.8 - 10.8 /CUMM) 6.8 RBC (4.20 - 5.40 /CUMM) 5.34 Hgb (12.0 - 16.0 G/DL) 11.3 L Hct (37 - 47 %) 35.6 L MCV (81.0 - 99.0 FL) 66.6 L MCH (27.0 - 31.0 PG) 21.1 L MCHC (33.0 - 37.0 G/DL) 31.6 L RDW (11.5 - 14.5 %) 15.5 H Plt Count (130 - 400 /CUMM) 239 MPV (7.4 - 10.4 FL) 8.6 Gran % (42.2 - 75.2 %) 74.5 Lymphocytes % (20.5 - 51.1 %) 20.7 Monocytes % (1.7 - 9.3 %) 4.3 Eosinophils % (0 - 5 %) 0.1 Basophils % (0.0 - 2.0 %) 0.4 Absolute Granulocytes (1.4 - 6.5 /CUMM) 5.1 Absolute Lymphocytes (1.2 - 3.4 /CUMM) 1.4 Absolute Monocytes (0.10 - 0.60 /CUMM) 0.3 Absolute Eosinophils (0.0 - 0.7 /CUMM) 0 Absolute Basophils (0.0 - 0.2 /CUMM) 0
[2018-01-02 09:10] VITALS: BP 124/80
--- NOTE | 2018-01-02 09:56 | RADIOLOGY REPORT ---
EXAMINATION: XR PORTABLE CHEST CLINICAL INFORMATION: History of chest pain. Suspected pneumonia or CHF. COMPARISON: Chest done on 01/01/2018. TECHNIQUE: Portable frontal view of the chest was obtained. FINDINGS: There is persistent mild enlargement of the cardiomediastinal silhouette is present. There is no discrete focal airspace disease present. There is no definite radiographic evidence of CHF present. There is no pleural effusion seen. The visualized upper abdomen is unremarkable. IMPRESSION: No radiographic evidence of pneumonia. Persistent stable mild enlargement of the cardiomediastinal silhouette.
--- NOTE | 2018-01-02 14:21 | Cons- Cardiology ---
General Information and HPI Consulting Request Date of Consult: 01/02/18 Requested By: Chey GRIMES,Marilin Reason for Consult: Atrial fibrillation with a rapid ventricular response. Source of Information: patient, family, old records, credit review officer Exam Limitations: language barrier History of Present Illness: Mrs. Tory Green is a 72-year-old female with a history of obesity , suspected obstructive sleep apnea, asthma, previous bronchitis, previous pneumonia, hypertension, dyslipidemia, diabetes mellitus, carotid artery disease , concentric LVH, HFpEF, mitral regurgitation, pulmonary hypertension, permanent atrial fibrillation on anticoagulation, s/p ABILIO/electrical CV 11/25/2009, and hyperthyroidism, toxic nodular goiter, multifocal papillary carcinoma, s/p thyroidectomy/ parathyroidectomy of one gland at [facility] ~3 months ago who presented to the ED on 01/01/2018 with complaints of dizziness, pins and needles/tingling/muscle spasm, palpitations, and who was found to be hypoxemic, in atrial fibrillation with a rapid ventricular response, and profoundly hypocalcemic and hypomagnesemic. She was seen by endocrinology (Anibal Tucker M.D.) who supervised the management of the hypocalcemia and hypomagnesemia with symptomatic improvement of her pins and needles/tingling/muscle spasms. She was additionally given IV diltiazem 10 mg in the ED and maintained on her by mouth diltiazem CD 240 mg daily and metoprolol 100 mg in the a.m. and 75 mg in the p.m. that improved ventricular response to her atrial fibrillation and lead to symptomatic improvement of her dizziness, as well as, her hypoxemia. Allergies/Medications Allergies: Coded Allergies: NO KNOWN ALLERGIES (06/13/14) Home Med List: Albuterol Sulfate (Proair Hfa) 90 MCG HFA.AER.AD 2 PUF INH Q4H PRN SOB/ WHEEZING (Reported) Calcitriol 0.5 MCG CAPSULE 1 CAP PO DAILY SUPPLEMENT (Reported) Calcium Carbonate (Oysco-500) 500 MG CALCIUM (1,250 MG) TABLET 1 TAB PO 4XDAILY SUPPLEMENT (Reported) Diltiazem HCl (Diltiazem 24HR ER) 240 MG CAP.ER.24H 1 CAP PO DAILY HEART/BP ( Reported) Ferrous Sulfate 324 MG (65 MG IRON) TABLET.DR 1 TAB PO DAILY SUPPLEMENT ( Reported) Fluticasone Propionate (Flovent Hfa) 220 MCG AER.W.ADAP 1 PUFF INH BID RESPIRATORY (Reported) Furosemide (Lasix) 80 MG TABLET 1 TAB PO QHS DIURETIC (Reported) Levothyroxine Sodium 137 MCG TABLET 1 TAB PO DAILY THYROID (Reported) Losartan Potassium (Unknown Strength) TABLET 100 MG PO DAILY HEART/BP ( Reported) Magnesium Oxide (Magnesium) 400 MG CAPSULE 1 CAP PO BID SUPPLEMENT (Reported) Metformin HCl (Glucophage) 850 MG TABLET 1 TAB PO BID DM (Reported) Metoprolol Tartrate (Lopressor) 50 MG TABLET 2 TAB PO QAM HEART/BP (Reported) Metoprolol Tartrate (Lopressor) 50 MG TABLET 1.5 TAB PO QPM HEART/BP ( Reported) Potassium Chloride 20 MEQ TAB.ER.PRT 1 TAB PO DAILY SUPPLEMENT (Reported) Rivaroxaban (Xarelto) 20 MG TABLET 1 TAB PO DAILY BLOOD THINNER (Reported) with food Rosuvastatin Calcium (Crestor) 20 MG TABLET 1 TAB PO QPM CHOLESTEROL ( Reported) Spironolactone 25 MG TABLET 1 TAB PO DAILY DIURETIC (Reported) Review of Systems Review of Systems: A 14 point system review was obtained through an credit review officer and was noncontributory. Past History Travel History Traveled to [place] past 21 day No Medical History Neurological: NONE EENT: NONE Cardiovascular: AFIB, hypertension, hyperlipidemia Respiratory: bronchitis, pulmonary hypertension Gastrointestinal: NONE Hepatic: NONE Renal: NONE Musculoskeletal: NONE Psychiatric: NONE Endocrine: diabetes, hyperthyroidism Blood Disorders: NONE Cancer(s): NONE NET MANAGER/Reproductive: NONE Surgical History Surgical History: thyroidectomy Family History Relations & Conditions If Any: FATHER FH: hypertension MOTHER FH: hypertension Psychosocial History Where Do You Live? Home Who Do You Live With? child Services at Home: None Primary Language: [employer] Smoking Status: Never Smoked ETOH Use: denies use Illicit Drug Use: denies illicit drug use Functional Ability ADLs Independent: dressing, eating, toileting, bathing. Ambulation: independent IADLs Independent: shopping, housework, finances, food prep, telephone, transportation , medication admin. Exam & Diagnostic Data Vital Signs and I&O Vital Signs Date Time Temp Pulse Resp B/P B/P Pulse O2 O2 Flow FiO2 Mean Ox Delivery Rate 01/02 1220 97 Nasal 1.0L Cannula 01/02 1014 Nasal 1.0L Cannula 01/02 0910 98.1 99 21 124/80 97 Nasal 1.0L Cannula 01/02 0800 96 Nasal 1.0L Cannula 01/02 0400 96 Nasal 1.0L Cannula 01/02 0000 96 Nasal 1.0L Cannula 01/02 0000 97.3 98 18 110/84 96 Nasal 1.0L Cannula 01/01 1951 97 Nasal 2.0L Cannula 01/01 1951 97.2 124 20 128/80 97 Nasal 2.0L Cannula 01/01 1914 99.0 116 18 128/79 96 Nasal 2.0L Cannula 01/01 1725 98.5 108 18 142/91 96 Nasal 2.0L Cannula 01/01 1536 98.4 117 16 124/77 95 Nasal 2.0L Cannula Intake & Output 01/02 1600 01/02 0800 01/02 0000 01/01 1600 01/01 0800 01/01 0000 Intake Total 598 1372.8 0 Output Total 350 550 Balance 248 822.8 0 Intake, IV 518 172.8 Intake, Oral 80 1200 0 Number 0 0 Bowel Movements Output, Urine 350 550 Patient 173 lb 175 lb Weight Weight Bed scale Reported by Patient Measurement Method Physical Exam: Well-developed, overweight elderly female in no acute distress. Vital signs: See above. HEENT: Normocephalic, atraumatic, EOMI, moist mucous membranes. Neck: No JVD, no bruits. Well healed scar at base of neck. Lungs: Few bibasilar crackles were heard on auscultation. Heart: S1, S2 with grade 1-2/6 systolic murmur. No gallop or rub. PMI not well felt. Abdomen: Soft, nontender, positive bowel sounds. Extremities: No edema. Labs/Mateusz Results: Laboratory Tests 01/02 01/02 01/02 01/02 01/02 1315 1300 0901 0120 0120 Chemistry Sodium (137 - 145 mmol/L) 142 141 Potassium (3.5 - 5.1 mmol/L) 4.6 4.1 Chloride (98 - 107 mmol/L) 95 L 95 L Carbon Dioxide (22 - 30 mmol/L) 37 H 32 H Anion Gap (5 - 16) 10 13 BUN (7 - 17 mg/dL) 15 15 Creatinine (0.5 - 1.0 mg/dL) 0.7 0.6 Estimated GFR (>60 ml/min) > 60 > 60 BUN/Creatinine Ratio (7 - 25 %) 25.0 Glucose (65 - 99 mg/dL) 101 H Calcium (8.4 - 10.2 mg/dL) 8.5 Cancelled 8.7 Phosphorus (2.5 - 4.5 mg/dL) 5.8 H Magnesium (1.6 - 2.3 mg/dL) 2.0 2.2 Iron (37 - 170 ug/dL) 70 TIBC (265 - 497 ug/dL) 428 Ferritin (11.1 - 264 ng/mL) 12.8 Total Bilirubin (0.2 - 1.3 mg/dL) 0.4 AST (14 - 36 U/L) 17 ALT (9 - 52 U/L) 24 Troponin I (< 0.11 ng/ml) < 0.01 Albumin (3.5 - 5.0 g/dL) 3.4 L PTH Intact (18.4 - 80.1 pg/ML) 28.8 0610 09 /09 0120 2120 1905 Chemistry Sodium (137 - 145 mmol/L) 141 Potassium (3.5 - 5.1 mmol/L) 3.5 Chloride (98 - 107 mmol/L) 96 L Carbon Dioxide (22 - 30 mmol/L) 36 H Anion Gap (5 - 16) 10 BUN (7 - 17 mg/dL) 16 Creatinine (0.5 - 1.0 mg/dL) 0.7 Estimated GFR (>60 ml/min) > 60 Glucose (65 - 99 mg/dL) 110 H Calcium (8.4 - 10.2 mg/dL) 6.8 L 5.7 *L 5.9 *L Phosphorus (2.5 - 4.5 mg/dL) 5.5 H Magnesium (1.6 - 2.3 mg/dL) 1.9 1.6 10.9 H Total Bilirubin (0.2 - 1.3 mg/dL) 0.2 AST (14 - 36 U/L) 16 ALT (9 - 52 U/L) 18 Troponin I (< 0.11 ng/ml) < 0.01 Albumin (3.5 - 5.0 g/dL) 3.1 L Hematology CBC w Diff NO MAN DIFF REQ WBC (4.8 - 10.8 /CUMM) 6.2 RBC (4.20 - 5.40 /CUMM) 4.70 Hgb (12.0 - 16.0 G/DL) 10.0 L Hct (37 - 47 %) 31.5 L MCV (81.0 - 99.0 FL) 66.9 L MCH (27.0 - 31.0 PG) 21.2 L MCHC (33.0 - 37.0 G/DL) 31.7 L RDW (11.5 - 14.5 %) 15.3 H Plt Count (130 - 400 /CUMM) 222 MPV (7.4 - 10.4 FL) 8.4 Gran % (42.2 - 75.2 %) 65.4 Lymphocytes % (20.5 - 51.1 %) 27.2 Monocytes % (1.7 - 9.3 %) 6.3 Eosinophils % (0 - 5 %) 0.6 Basophils % (0.0 - 2.0 %) 0.5 Absolute Granulocytes (1.4 - 6.5 /CUMM) 4.0 Absolute Lymphocytes (1.2 - 3.4 /CUMM) 1.7 Absolute Monocytes (0.10 - 0.60 /CUMM) 0.4 Absolute Eosinophils (0.0 - 0.7 /CUMM) 0 Absolute Basophils (0.0 - 0.2 /CUMM) 0 01/01 01/01 1751 1250 Chemistry Sodium (137 - 145 mmol/L) 141 Potassium (3.5 - 5.1 mmol/L) 3.5 Chloride (98 - 107 mmol/L) 93 L Carbon Dioxide (22 - 30 mmol/L) 34 H Anion Gap (5 - 16) 14 BUN (7 - 17 mg/dL) 22 H Creatinine (0.5 - 1.0 mg/dL) 0.7 Estimated GFR (>60 ml/min) > 60 BUN/Creatinine Ratio (7 - 25 %) 31.4 H Glucose (65 - 99 mg/dL) 180 H Hemoglobin A1c (4.2 - 5.8 %) Pending Calcium (8.4 - 10.2 mg/dL) Cancelled 5.8 *L Magnesium (1.6 - 2.3 mg/dL) Cancelled 0.9 *L Total Bilirubin (0.2 - 1.3 mg/dL) 0.4 AST (14 - 36 U/L) 21 ALT (9 - 52 U/L) 20 Alkaline Phosphatase (<127 U/L) 54 Troponin I (< 0.11 ng/ml) < 0.01 Total Protein (6.3 - 8.2 g/dL) 7.0 Albumin (3.5 - 5.0 g/dL) 4.0 Globulin (1.9 - 4.2 gm/dL) 3.0 Albumin/Globulin Ratio (1.1 - 2.2 %) 1.3 25-OH Vitamin D Total (30 - 100 ng/ml) 40.6 Free T4 (0.78 - 2.44 ng/dL) 1.17 Total T3 (0.97 - 1.69 ng/mL) 0.89 L TSH &T3 &Free T4 Intrp (0.270 - 4.20 uIU/mL) 9.350 H PTH Intact (18.4 - 80.1 pg/ML) 21.6 Coagulation D-Dimer High Sensitivty (0 - 243 ng/ml) < 200 Hematology CBC w Diff NO MAN DIFF REQ WBC (4.8 - 10.8 /CUMM) 6.8 RBC (4.20 - 5.40 /CUMM) 5.34 Hgb (12.0 - 16.0 G/DL) 11.3 L Hct (37 - 47 %) 35.6 L MCV (81.0 - 99.0 FL) 66.6 L MCH (27.0 - 31.0 PG) 21.1 L MCHC (33.0 - 37.0 G/DL) 31.6 L RDW (11.5 - 14.5 %) 15.5 H Plt Count (130 - 400 /CUMM) 239 MPV (7.4 - 10.4 FL) 8.6 Gran % (42.2 - 75.2 %) 74.5 Lymphocytes % (20.5 - 51.1 %) 20.7 Monocytes % (1.7 - 9.3 %) 4.3 Eosinophils % (0 - 5 %) 0.1 Basophils % (0.0 - 2.0 %) 0.4 Absolute Granulocytes (1.4 - 6.5 /CUMM) 5.1 Absolute Lymphocytes (1.2 - 3.4 /CUMM) 1.4 Absolute Monocytes (0.10 - 0.60 /CUMM) 0.3 Absolute Eosinophils (0.0 - 0.7 /CUMM) 0 Absolute Basophils (0.0 - 0.2 /CUMM) 0 Diagnostic Data EKG Results 01/02/2018: Atrial fibrillation with a normal mean ventricular response. Slower ventricular response when compared to previous tracing from 01/01/2018. CXR Results 01/02/2018: No radiographic evidence of pneumonia. Persistent stable mild enlargement of the cardiomediastinal silhouette. Assessment/Plan Assessment/Plan [id number] w/ hx of obesity, suspected JEANINE, asthma, prev bronchitis, prev PNA, HTN, HLD, DM, carotid art dz, LVH, HFpEF, MR, pul HTN, permanent AF on AC, s/p ABILIO/electrical CV 11/25/2009, & hyperthyroidism, toxic nodular goiter, multifocal papillary ca, s/p thyroidectomy/ parathyroidectomy of one gland at [facility] ~3 mos ago who presented to the ED on 01/01/2018 w/ c/o dizziness, pins & needles/tingling/muscle spasm, palpitations, and who was found to be hypoxemic , in AF w/RVR, & profoundly hypocalcemic/hypomagnesemic. Endocrinology (Anibal Tucker M.D.) supervised the mgt of the hypocalcemia/ hypomagnesemia w/ symptomatic improvement of her pins and needles/tingling/ muscle spasms. She was additionally given IV diltiazem 10 mg in the ED & maintained on her by mouth diltiazem CD 240 mg daily & metoprolol 100 mg in the a.m. and 75 mg in the p.m. that improved the ventricular response to her AF which lead to improvement of her dizziness, as well as, her hypoxemia. Recommendations: * Continue in ICU w/ ECG monitoring. * Consider increasing her diltiazem CD from 240 mg daily to 300 mg daily to further improve the ventricular response to her AF. * Obtain an echocardiogram to reassess her degree of LVH, LV function, degree of MR, PA pressure, etc. * She is over 1 L "positive" by inputs/outputs, but no evidence of HF by CXR, so continue to clinically monitor and repeat CXR in AM. * Follow-up calcium and magnesium levels and continue to replete as per endocrinology. * DVT prophylaxis. Further recommendations will follow, Thank you. Consult Acknowledgment - Thank you for your consult request.
[2018-01-02 16:00] VITALS: BP 103/58
[2018-01-03] VITALS: BP 92/56
[2018-01-03 05:21] LABS: ABSOLUTE BASOPHIL COUNT 0 /CUMM (0.0-0.2); ABSOLUTE EOSINOPHIL COUNT 0.1 /CUMM (0.0-0.7); ABSOLUTE GRANULOCYTE CT 2.9 /CUMM (1.4-6.5); ABSOLUTE LYMPH COUNT 1.5 /CUMM (1.2-3.4); ABSOLUTE MONOCYTE COUNT 0.3 /CUMM (0.10-0.60); BASOPHIL % 0.5 % (0.0-2.0); EOSINOPHIL % 1.2 % (0-5); GRANULOCYTE % 59.6 % (42.2-75.2); HEMATOCRIT 31.3 % (37-47); MEAN CORPUSCULAR HGB 21.3 PG (27.0-31.0); MEAN CORPUSCULAR HGB CONC 31.8 G/DL (33.0-37.0); MEAN CORPUSCULAR VOLUME 66.8 FL (81.0-99.0); MEAN PLATELET VOLUME 8.4 FL (7.4-10.4); PLATELET COUNT 199 /CUMM (130-400); RBC DISTRIBUTION WIDTH 15.5 % (11.5-14.5); RED BLOOD CELL CT 4.69 /CUMM (4.20-5.40); WHITE BLOOD CELL COUNT 4.8 /CUMM (4.8-10.8)
--- NOTE | 2018-01-03 07:29 | PN- Endocrinology ---
Assessment/Plan Endoscopy Assessment: The patient feels okay. The patient's labs show glucose 118 calcium 8.4 with an albumin of 3.1. Her corrected calcium is 9.2. Magnesium is 1.6. PTH is 22.2. 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 The patient is presently on calcitriol. She may have been on alendronate at home which could lead to more severe hypocalcemia in the face of partial parathyroid hormone deficiency. Plan: Suggest reduce the patient's calcitriol to 0.25 mcg daily. The patient should be on 25 hydroxy vitamin D3 1000 units daily 25 and calcium supplementation. Calcium carbonate 650 mg twice a day is adequate in addition to what is in her diet. Would keep the patient off alendronate for now. Subjective Subjective: Feels okay Review of Systems Constitutional: Denies: chills, fever. Cardiovascular: Denies: chest pain. Respiratory: Denies: short of breath. Objective Last 24 Hrs of Vital Signs/I&O Vital Signs Date Time Temp Pulse Resp B/P B/P Pulse O2 O2 Flow FiO2 Mean Ox Delivery Rate 01/03 0000 95 Nasal 1.0L Cannula 01/03 0000 96.9 68 18 92/56 95 Nasal 2.0L Cannula 01/03 2000 95 Nasal 2.0L Cannula 01/02 1600 97.8 89 17 103/58 96 Room Air 01/02 1220 97 Nasal 1.0L Cannula 01/02 1014 Nasal 1.0L Cannula 01/02 0910 98.1 99 21 124/80 97 Nasal 1.0L Cannula 01/02 0800 96 Nasal 1.0L Cannula Intake & Output 01/03 0800 01/03 0000 01/02 1600 Intake Total 120 600 770.8 Output Total 400 500 900 Balance -280 100 -129.2 Intake, IV 0 70.8 Intake, Oral 120 600 700 Number 0 0 1 Bowel Movements Output, Urine 400 500 900 Vital Signs Date Time Temp Pulse Resp B/P B/P Pulse O2 O2 Flow FiO2 Mean Ox Delivery Rate 01/03 0000 95 Nasal 1.0L Cannula 01/03 0000 96.9 68 18 92/56 95 Nasal 2.0L Cannula 01/03 2000 95 Nasal 2.0L Cannula 01/02 1600 97.8 89 17 103/58 96 Room Air 01/02 1220 97 Nasal 1.0L Cannula 01/02 1014 Nasal 1.0L Cannula 01/02 910 98.1 99 21 124/80 97 Nasal 1.0L Cannula 01/03 800 96 Nasal 1.0L Cannula Intake & Output 01/03 0800 01/03 0000 01/02 1600 Intake Total 120 600 770.8 Output Total 400 500 900 Balance -280 100 -129.2 Intake, IV 0 70.8 Intake, Oral 120 600 700 Number 0 0 1 Bowel Movements Output, Urine 400 500 900 Physical Exam General Appearance: alert, awake, comfortable Head: normal appearance Neck: normal inspection Respiratory: normal breath sounds Cardiovascular: irregularly irregular Skin: intact Current Medications: Current Medications Sig/Diana Start time Last Medication Dose Route Stop Time Status Admin Acetaminophen 650 MG Q6P PRN 01/02 1145 AC 01/03 PO 0600 Albuterol Sulfate 2 PUF Q4H PRN 01/01 1745 AC 01/02 INH 0933 Atorvastatin Calcium 80 MG 1700 01/02 1700 AC 01/02 PO 1642 Calcitriol 0.25 MCG DAILY 01/03 900 UNVr PO Calcitriol 0.5 MCG DAILY 01/02 900 DC 01/02 PO 1642 Calcium Carbonate 650 MG BID 01/02 2100 AC 01/02 PO 2159 Calcium Carbonate 2,500 MG DAILY 01/01 171 DC 01/02 PO 0932 Calcium Gluconate 10 GM ONCE ONE 01/01 194 DC 01/01 Sodium Chloride 1,000 ML IV 01/02 1544 2141 Cholecalciferol 1,000 IU DAILY 01/03 900 UNVr PO Diltiazem HCl 360 MG DAILY 01/03 900 DC PO Diltiazem HCl 300 MG DAILY 01/03 900 AC PO Diltiazem HCl 240 MG DAILY 01/02 900 DC 01/02 PO 0932 Ferrous Sulfate 325 MG DAILY 01/02 900 AC 01/02 PO 0932 Fluticasone 2 PUF BID 01/01 2100 AC 01/02 Propionate INH 2159 Insulin Aspart 0 TIDAC 01/02 08 AC 01/02 SC 1641 Levothyroxine Sodium 0.137 MG DAILY AC 01/02 0700 AC 01/03 PO 0600 Losartan Potassium 100 MG DAILY 01/02 900 AC 01/02 PO 0932 Magnesium Oxide 400 MG ONE ONE 01/03 0645 DC PO 01/03 0646 Magnesium Oxide 400 MG ONE ONE 01/02 0745 DC 01/02 PO 01/02 0746 0931 Magnesium Oxide 400 MG BID 01/01 2100 AC 01/02 PO 2200 Magnesium Sulfate 4 GM ONE ONE 01/02 2000 DC 01/01 Sodium Chloride 250 ML IV 01/02 0759 2243 Metoprolol Tartrate 100 MG QAM 01/02 900 AC 01/02 PO 0932 Metoprolol Tartrate 75 MG QPM 01/01 2100 AC 01/02 PO 2200 Potassium Chloride 40 MEQ ONCE ONE 01/02 745 DC 01/02 PO 01/02 0746 0932 Rivaroxaban 20 MG DAILY 01/02 900 AC 01/02 PO 32 Results Pertinent Lab/Mateusz Results: Laboratory Tests 01/03 01/02 01/02 0450 1315 1300 Chemistry Sodium (137 - 145 mmol/L) 141 142 Potassium (3.5 - 5.1 mmol/L) 4.5 4.6 Chloride (98 - 107 mmol/L) 95 L 95 L Carbon Dioxide (22 - 30 mmol/L) 38 H 37 H Anion Gap (5 - 16) 8 10 BUN (7 - 17 mg/dL) 16 15 Creatinine (0.5 - 1.0 mg/dL) 0.6 0.7 Estimated GFR (>60 ml/min) > 60 > 60 Glucose (65 - 99 mg/dL) 118 H 101 H Calcium (8.4 - 10.2 mg/dL) 8.4 8.5 Cancelled Phosphorus (2.5 - 4.5 mg/dL) 5.5 H 5.8 H Magnesium (1.6 - 2.3 mg/dL) 1.6 2.0 Total Bilirubin (0.2 - 1.3 mg/dL) 0.2 0.4 AST (14 - 36 U/L) 19 17 ALT (9 - 52 U/L) 22 24 Albumin (3.5 - 5.0 g/dL) 3.1 L 3.4 L PTH Intact (18.4 - 80.1 pg/ML) 22.2 Hematology CBC w Diff NO MAN DIFF REQ WBC (4.8 - 10.8 /CUMM) 4.8 RBC (4.20 - 5.40 /CUMM) 4.69 Hgb (12.0 - 16.0 G/DL) 10.0 L Hct (37 - 47 %) 31.3 L MCV (81.0 - 99.0 FL) 66.8 L MCH (27.0 - 31.0 PG) 21.3 L MCHC (33.0 - 37.0 G/DL) 31.8 L RDW (11.5 - 14.5 %) 15.5 H Plt Count (130 - 400 /CUMM) 199 MPV (7.4 - 10.4 FL) 8.4 Gran % (42.2 - 75.2 %) 59.6 Lymphocytes % (20.5 - 51.1 %) 31.9 Monocytes % (1.7 - 9.3 %) 6.8 Eosinophils % (0 - 5 %) 1.2 Basophils % (0.0 - 2.0 %) 0.5 Absolute Granulocytes (1.4 - 6.5 /CUMM) 2.9 Absolute Lymphocytes (1.2 - 3.4 /CUMM) 1.5 Absolute Monocytes (0.10 - 0.60 /CUMM) 0.3 Absolute Eosinophils (0.0 - 0.7 /CUMM) 0.1 Absolute Basophils (0.0 - 0.2 /CUMM) 0 01/02 01/02 01/02 01/02 0901 0120 0120 0120 Chemistry Sodium (137 - 145 mmol/L) 141 141 Potassium (3.5 - 5.1 mmol/L) 4.1 3.5 Chloride (98 - 107 mmol/L) 95 L 96 L Carbon Dioxide (22 - 30 mmol/L) 32 H 36 H Anion Gap (5 - 16) 13 10 BUN (7 - 17 mg/dL) 15 16 Creatinine (0.5 - 1.0 mg/dL) 0.6 0.7 Estimated GFR (>60 ml/min) > 60 > 60 BUN/Creatinine Ratio (7 - 25 %) 25.0 Glucose (65 - 99 mg/dL) 110 H Calcium (8.4 - 10.2 mg/dL) 8.7 6.8 L Phosphorus (2.5 - 4.5 mg/dL) 5.5 H Magnesium (1.6 - 2.3 mg/dL) 2.2 1.9 Iron (37 - 170 ug/dL) 70 TIBC (265 - 497 ug/dL) 428 Ferritin (11.1 - 264 ng/mL) 12.8 Total Bilirubin (0.2 - 1.3 mg/dL) 0.2 AST (14 - 36 U/L) 16 ALT (9 - 52 U/L) 18 Troponin I (< 0.11 ng/ml) < 0.01 Albumin (3.5 - 5.0 g/dL) 3.1 L PTH Intact (18.4 - 80.1 pg/ML) 28.8 Hematology CBC w Diff NO MAN DIFF REQ WBC (4.8 - 10.8 /CUMM) 6.2 RBC (4.20 - 5.40 /CUMM) 4.70 Hgb (12.0 - 16.0 G/DL) 10.0 L Hct (37 - 47 %) 31.5 L MCV (81.0 - 99.0 FL) 66.9 L MCH (27.0 - 31.0 PG) 21.2 L MCHC (33.0 - 37.0 G/DL) 31.7 L RDW (11.5 - 14.5 %) 15.3 H Plt Count (130 - 400 /CUMM) 222 MPV (7.4 - 10.4 FL) 8.4 Gran % (42.2 - 75.2 %) 65.4 Lymphocytes % (20.5 - 51.1 %) 27.2 Monocytes % (1.7 - 9.3 %) 6.3 Eosinophils % (0 - 5 %) 0.6 Basophils % (0.0 - 2.0 %) 0.5 Absolute Granulocytes (1.4 - 6.5 /CUMM) 4.0 Absolute Lymphocytes (1.2 - 3.4 /CUMM) 1.7 Absolute Monocytes (0.10 - 0.60 /CUMM) 0.4 Absolute Eosinophils (0.0 - 0.7 /CUMM) 0 Absolute Basophils (0.0 - 0.2 /CUMM) 0 01/01 01/01 01/01 2120 1905 1751 Chemistry Calcium (8.4 - 10.2 mg/dL) 5.7 *L 5.9 *L Cancelled Magnesium (1.6 - 2.3 mg/dL) 1.6 10.9 H Cancelled Troponin I (< 0.11 ng/ml) < 0.01 01/01 1250 Chemistry Sodium (137 - 145 mmol/L) 141 Potassium (3.5 - 5.1 mmol/L) 3.5 Chloride (98 - 107 mmol/L) 93 L Carbon Dioxide (22 - 30 mmol/L) 34 H Anion Gap (5 - 16) 14 BUN (7 - 17 mg/dL) 22 H Creatinine (0.5 - 1.0 mg/dL) 0.7 Estimated GFR (>60 ml/min) > 60 BUN/Creatinine Ratio (7 - 25 %) 31.4 H Glucose (65 - 99 mg/dL) 180 H Hemoglobin A1c (4.2 - 5.8 %) Pending Calcium (8.4 - 10.2 mg/dL) 5.8 *L Magnesium (1.6 - 2.3 mg/dL) 0.9 *L Total Bilirubin (0.2 - 1.3 mg/dL) 0.4 AST (14 - 36 U/L) 21 ALT (9 - 52 U/L) 20 Alkaline Phosphatase (<127 U/L) 54 Troponin I (< 0.11 ng/ml) < 0.01 Total Protein (6.3 - 8.2 g/dL) 7.0 Albumin (3.5 - 5.0 g/dL) 4.0 Globulin (1.9 - 4.2 gm/dL) 3.0 Albumin/Globulin Ratio (1.1 - 2.2 %) 1.3 25-OH Vitamin D Total (30 - 100 ng/ml) 40.6 Free T4 (0.78 - 2.44 ng/dL) 1.17 Total T3 (0.97 - 1.69 ng/mL) 0.89 L TSH &T3 &Free T4 Intrp (0.270 - 4.20 uIU/mL) 9.350 H PTH Intact (18.4 - 80.1 pg/ML) 21.6 Coagulation D-Dimer High Sensitivty (0 - 243 ng/ml) < 200 Hematology CBC w Diff NO MAN DIFF REQ WBC (4.8 - 10.8 /CUMM) 6.8 RBC (4.20 - 5.40 /CUMM) 5.34 Hgb (12.0 - 16.0 G/DL) 11.3 L Hct (37 - 47 %) 35.6 L MCV (81.0 - 99.0 FL) 66.6 L MCH (27.0 - 31.0 PG) 21.1 L MCHC (33.0 - 37.0 G/DL) 31.6 L RDW (11.5 - 14.5 %) 15.5 H Plt Count (130 - 400 /CUMM) 239 MPV (7.4 - 10.4 FL) 8.6 Gran % (42.2 - 75.2 %) 74.5 Lymphocytes % (20.5 - 51.1 %) 20.7 Monocytes % (1.7 - 9.3 %) 4.3 Eosinophils % (0 - 5 %) 0.1 Basophils % (0.0 - 2.0 %) 0.4 Absolute Granulocytes (1.4 - 6.5 /CUMM) 5.1 Absolute Lymphocytes (1.2 - 3.4 /CUMM) 1.4 Absolute Monocytes (0.10 - 0.60 /CUMM) 0.3 Absolute Eosinophils (0.0 - 0.7 /CUMM) 0 Absolute Basophils (0.0 - 0.2 /CUMM) 0
--- NOTE | 2018-01-03 08:24 | PN- Housestaff ---
Elvie GRIMES,Jeri 01/03/18 0823: Subjective Follow-up For: Symptomatic hypocalcemia status post total thyroidectomy and right upper parathyroidectomy Hypomagnesemia Complaints: no complaints Subjective: Patient is seen and examined at the bedside. She was not having any active complaints. Review of Systems Constitutional: Denies: no symptoms. Objective Last 24 Hrs of Vital Signs/I&O Vital Signs Date Time Temp Pulse Resp B/P B/P Pulse O2 O2 Flow FiO2 Mean Ox Delivery Rate 01/03 0825 97.2 89 22 124/80 93 Nasal 1.0L Cannula 01/03 0800 96 Room Air 01/03 0400 97 Nasal 1.0L Cannula 01/03 0000 95 Nasal 1.0L Cannula 01/03 0000 96.9 68 18 92/56 95 Nasal 2.0L Cannula 01/02 2000 95 Nasal 2.0L Cannula 01/02 1600 97.8 89 17 103/58 96 Room Air 01/02 1220 97 Nasal 1.0L Cannula Intake & Output 01/03 1600 01/03 0800 01/03 0000 Intake Total 120 600 Output Total 400 500 Balance -280 100 Intake, IV 0 Intake, Oral 120 600 Number 0 0 Bowel Movements Output, Urine 400 500 Physical Exam General Appearance: Alert, Oriented X3, Cooperative, No Acute Distress Skin: No Rashes, No Breakdown Neck: Supple, No JVD Cardiovascular: Normal S1, Normal S2 Lungs: mild crackles Abdomen: Soft, No Tenderness Neurological: Normal Speech Extremities: No Clubbing, No Cyanosis, No Edema Vascular: Normal Pulses, Pulses Symmetrical Current Medications: Current Medications Sig/Diana Start time Last Medication Dose Route Stop Time Status Admin Acetaminophen 650 MG Q6P PRN 01/02 1145 AC 01/03 PO 0600 Albuterol Sulfate 2 PUF Q4H PRN 01/01 1745 AC 01/03 INH 0849 Atorvastatin Calcium 80 MG 1700 01/02 1700 AC 01/02 PO 1642 Calcitriol 0.25 MCG DAILY 01/03 09 AC 01/03 PO 0849 Calcitriol 0.5 MCG DAILY 01/02 0900 DC 01/02 PO 1642 Calcium Carbonate 650 MG BID 01/02 2100 AC 01/03 PO 0848 Cholecalciferol 1,000 IU DAILY 01/03 09 AC 01/03 PO 0848 Diltiazem HCl 360 MG DAILY 01/03 900 DC PO Diltiazem HCl 300 MG DAILY 01/03 900 AC 01/03 PO 0849 Diltiazem HCl 240 MG DAILY 01/02 900 DC 01/02 PO 0932 Ferrous Sulfate 325 MG DAILY 01/02 900 AC 01/03 PO 0848 Fluticasone 2 PUF BID 01/01 2100 AC 01/03 Propionate INH 0849 Insulin Aspart 0 TIDAC 01/03 800 AC 01/02 SC 1641 Levothyroxine Sodium 0.137 MG DAILY AC 01/02 700 AC 01/03 PO 0600 Losartan Potassium 100 MG DAILY 01/02 900 AC 01/03 PO 0848 Magnesium Oxide 400 MG ONE ONE 01/03 06 DC 01/03 PO 01/03 0646 0848 Magnesium Oxide 400 MG BID 01/01 2100 AC 01/03 PO 0848 Metoprolol Tartrate 100 MG QAM 01/02 900 AC 01/03 PO 0848 Metoprolol Tartrate 75 MG QPM 01/01 2100 AC 01/02 PO 2200 Rivaroxaban 20 MG DAILY 01/02 900 AC 01/03 PO 0848 Last 24 Hrs of Lab/Mateusz Results Last 24 Hrs of Labs/Mics: Laboratory Tests 01/03/18 0450: Anion Gap 8, Estimated GFR > 60, Glucose 118 H, Calcium 8.4, Phosphorus 5.5 H, Magnesium 1.6, Total Bilirubin 0.2, AST 19, ALT 22, Albumin 3.1 L, PTH Intact 22.2, CBC w Diff NO MAN DIFF REQ, RBC 4.69, MCV 66.8 L, MCH 21.3 L, MCHC 31.8 L, RDW 15.5 H, MPV 8.4, Gran % 59.6, Lymphocytes % 31.9, Monocytes % 6.8, Eosinophils % 1.2, Basophils % 0.5, Absolute Granulocytes 2.9, Absolute Lymphocytes 1.5, Absolute Monocytes 0.3, Absolute Eosinophils 0.1, Absolute Basophils 0 01/02/18 1315: Anion Gap 10, Estimated GFR > 60, Glucose 101 H, Calcium 8.5, Phosphorus 5.8 H , Magnesium 2.0, Total Bilirubin 0.4, AST 17, ALT 24, Albumin 3.4 L 01/02/18 1300: Calcium Cancelled Assessment/Plan Assessment: Patient is 72-year-old female with multiple medical problems presented with chief complaints of tingling, numbness and muscle spasm all over the body. 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 * History of atrial fibrillation on diltiazem, metoprolol, Xarelto * History of asthma. * Beta thalassemia. * Type 2 diabetes. * Dyslipidemia. * Hypertension - On furosemide 80 milligrams, Spirinolacton an 25 milligrams * Iron deficiency anemia. * Mitral valve disorder. * Obstructive sleep apnea. * Osteoporosis. * Vitamin D deficiency Surgical history-cholecystectomy, appendicectomy Vital signs -afebrile, heart rate 60, blood pressure 110/70, SPO2 95% on room air. She had episodes of bradycardia and range of 50s-60. Physical exam -oriented to time, place and person, lungs -bilateral basilar crackles up to 1/3 of the lungs. Assessment and plan - We will transfer the patient to telemetry floor(01/03/2018) Symptomatic Hypocalcemia, hypomagnesemia secondary to thyroidectomy/right upper parathyroidectomy -recovered * We followed endocrinologic recommendation * She presented with serum calcium of 5.8, treated by IV calcium gluconate, her repeated calcium was 8.7. We stopped the calcium gluconate drip, calcium carbonate 2.5 grams daily, and started on calcium carbonate 650 milligrams twice a day. We changed the dose of tablet calcitriol from 0.5 mcg to 0.25 mcg daily and added 25 hydroxy vitamin D thousand units daily. We advised to hold alendronate. * Her baseline Magnesium was 0.9 and repeated magnesium come back to 2.2. We stopped magnesium drip and started the patient on magnesium oxide 400 milligrams twice a day. Advised to watch for the diarrhea. Atrial fibrillation with controlled ventricular rate- * We increased the dose of tablet diltiazem from 240 to 300 mg as per recommendation of wildlife conservationist(01/02/2018). We continued the patient on Xarelto. Follow-up chest x-ray showed evidence of cardiomediastinal enlargement. * We will follow cardiology recommendations * Echocardiogram did show -LVEF 55%, moderate LAD, moderate MR, moderate TR. Type 2 diabetes - * Her blood glucoses are in the range of 140 -170. * We will give NovoLog according to the sliding scale. CODE STATUS-full code. DVT prophylaxis-Xarelto Diet-consistent carbohydrate. 3. Problem List: 1. Diabetes mellitus 2. Hypothyroidism 3. Hypomagnesemia 4. Atrial fibrillation with RVR 5. Hypocalcemia Pain Ratin Pain Location: n/a Pain Goal: Remain pain free Pain Plan: avoid opioids Tomorrow's Labs & Rationales: f/u CBC, ICU bundle DVT/Prophylaxis: mechanical, pharmacological Edmund Mata MD 01/03/18 1713: Attending MD Review Statement Attending Statement Attending MD Statement: examined this patient, discuss w/resident/PA/FARM SERVICE CONSULTANT, agreed w/resident/PA/FARM SERVICE CONSULTANT, reviewed EMR data (avail), discussed with case mgmt, amended to note Attending Assessment/Plan: The patient was seen and discussed with house staff. Appreciate Cardiology and Endocrinology follow-up. HR stable on Cardizem. Adjust Ca as per Endocrinology. OK to transfer to Telemetry.
[2018-01-03 08:25] VITALS: BP 124/80
--- NOTE | 2018-01-03 11:16 | PN- Cardiology ---
Subjective Subjective: The patient is resting comfortably this morning and denies any pain or palpitations. Objective Vital Signs and I&Os Vital Signs Date Time Temp Pulse Resp B/P B/P Pulse O2 O2 Flow FiO2 Mean Ox Delivery Rate 01/03 0825 97.2 89 22 124/80 93 Nasal 1.0L Cannula 01/03 08 96 Room Air 01/03 0400 97 Nasal 1.0L Cannula 01/03 0000 95 Nasal 1.0L Cannula 01/03 0000 96.9 68 18 92/56 95 Nasal 2.0L Cannula 01/02 2000 95 Nasal 2.0L Cannula 01/02 1600 97.8 89 17 103/58 96 Room Air 01/02 1220 97 Nasal 1.0L Cannula Intake & Output 01/03 1600 01/03 0800 01/03 0000 01/02 1600 01/02 0800 01/02 0000 Intake Total 120 600 770.8 598 1372.8 Output Total 400 500 900 350 550 Balance -280 100 -129.2 248 822.8 Intake, IV 0 70.8 518 172.8 Intake, Oral 120 600 410 07 3351 Number 0 0 1 0 0 Bowel Movements Output, Urine 400 500 900 350 550 Patient 173 lb Weight Weight Bed scale Measurement Method Physical Exam: General: no apparent distress. Alert. Eyes: No obvious scleral icterus. HEENT: No jugular venous distention or abnormal jugular venous pulsations. Cardiovascular: Normal intensity S1/S2. Irregular, 1 out of 6 systolic murmur Respiratory: Lungs clear to auscultation bilaterally. Abdomen: Soft, nontender with no guarding or rebound tenderness. Musculoskeletal: No clubbing or cyanosis noted; no edema Skin: warm Neurologic: No gross focal deficits noted. Current Medications: Current Medications Sig/Diana Start time Last Medication Dose Route Stop Time Status Admin Acetaminophen 650 MG Q6P PRN 01/02 1145 AC 01/03 PO 0600 Albuterol Sulfate 2 PUF Q4H PRN 01/01 1745 AC 01/03 INH 0849 Atorvastatin Calcium 80 MG 1700 01/02 1700 AC 01/02 PO 1642 Calcitriol 0.25 MCG DAILY 01/03 0900 AC 01/03 PO 0849 Calcitriol 0.5 MCG DAILY 01/02 0900 DC 01/02 PO 1642 Calcium Carbonate 650 MG BID 01/02 2100 AC 01/03 PO 0848 Cholecalciferol 1,000 IU DAILY 01/03 900 AC 01/03 PO 0848 Diltiazem HCl 360 MG DAILY 01/03 900 DC PO Diltiazem HCl 300 MG DAILY 01/03 900 AC 01/03 PO 0849 Diltiazem HCl 240 MG DAILY 01/02 900 DC 01/02 PO 0932 Ferrous Sulfate 325 MG DAILY 01/02 900 AC 01/03 PO 0848 Fluticasone 2 PUF BID 01/01 2100 AC 01/03 Propionate INH 0849 Insulin Aspart 0 TIDAC 01/03 800 AC 01/02 SC 1641 Levothyroxine Sodium 0.137 MG DAILY AC 01/02 700 AC 01/03 PO 0600 Losartan Potassium 100 MG DAILY 01/02 900 AC 01/03 PO 0848 Magnesium Oxide 400 MG ONE ONE 01/03 645 DC 01/03 PO 01/03 0646 0848 Magnesium Oxide 400 MG BID 01/01 2100 AC 01/03 PO 0848 Metoprolol Tartrate 100 MG QAM 01/02 900 AC 01/03 PO 0848 Metoprolol Tartrate 75 MG QPM 01/01 2100 AC 01/02 PO 2200 Rivaroxaban 20 MG DAILY 01/02 900 AC 01/03 PO 0848 Results Last 48 Hrs of Labs/Mics: Laboratory Tests 01/03/18 0450: Anion Gap 8, Estimated GFR > 60, Glucose 118 H, Calcium 8.4, Phosphorus 5.5 H, Magnesium 1.6, Total Bilirubin 0.2, AST 19, ALT 22, Albumin 3.1 L, PTH Intact 22.2, CBC w Diff NO MAN DIFF REQ, RBC 4.69, MCV 66.8 L, MCH 21.3 L, MCHC 31.8 L, RDW 15.5 H, MPV 8.4, Gran % 59.6, Lymphocytes % 31.9, Monocytes % 6.8, Eosinophils % 1.2, Basophils % 0.5, Absolute Granulocytes 2.9, Absolute Lymphocytes 1.5, Absolute Monocytes 0.3, Absolute Eosinophils 0.1, Absolute Basophils 0 01/02/18 1315: Anion Gap 10, Estimated GFR > 60, Glucose 101 H, Calcium 8.5, Phosphorus 5.8 H , Magnesium 2.0, Total Bilirubin 0.4, AST 17, ALT 24, Albumin 3.4 L 01/02/18 1300: Calcium Cancelled 01/02/18 0901: Anion Gap 13, Estimated GFR > 60, BUN/Creatinine Ratio 25.0, Calcium 8.7, Magnesium 2.2, Iron 70, TIBC 428, Ferritin 12.8 01/02/18 0120: Troponin I < 0.01 01/02/18 0120: PTH Intact 28.8 01/02/18 0120: Anion Gap 10, Estimated GFR > 60, Glucose 110 H, Calcium 6.8 L, Phosphorus 5.5 H, Magnesium 1.9, Total Bilirubin 0.2, AST 16, ALT 18, Albumin 3.1 L, CBC w Diff NO MAN DIFF REQ, RBC 4.70, MCV 66.9 L, MCH 21.2 L, MCHC 31.7 L, RDW 15.3 H, MPV 8.4, Gran % 65.4, Lymphocytes % 27.2, Monocytes % 6.3, Eosinophils % 0.6 , Basophils % 0.5, Absolute Granulocytes 4.0, Absolute Lymphocytes 1.7, Absolute Monocytes 0.4, Absolute Eosinophils 0, Absolute Basophils 0 01/01/18 2120: Calcium 5.7 *L, Magnesium 1.6 01/01/18 1905: Calcium 5.9 *L, Magnesium 10.9 H, Troponin I < 0.01 01/01/18 1751: Calcium Cancelled, Magnesium Cancelled 01/01/18 1250: Anion Gap 14, Estimated GFR > 60, BUN/Creatinine Ratio 31.4 H, Glucose 180 H, Hemoglobin A1c 6.9 H, Calcium 5.8 *L, Magnesium 0.9 *L, Total Bilirubin 0.4, AST 21, ALT 20, Alkaline Phosphatase 54, Troponin I < 0.01, Total Protein 7.0, Albumin 4.0, Globulin 3.0, Albumin/Globulin Ratio 1.3, 25-OH Vitamin D Total 40.6, Free T4 1.17, Total T3 0.89 L, TSH &T3 &Free T4 Intrp 9.350 H, PTH Intact 21.6, D-Dimer High Sensitivty < 200, CBC w Diff NO MAN DIFF REQ, RBC 5.34 , MCV 66.6 L, MCH 21.1 L, MCHC 31.6 L, RDW 15.5 H, MPV 8.6, Gran % 74.5, Lymphocytes % 20.7, Monocytes % 4.3, Eosinophils % 0.1, Basophils % 0.4, Absolute Granulocytes 5.1, Absolute Lymphocytes 1.4, Absolute Monocytes 0.3, Absolute Eosinophils 0, Absolute Basophils 0 Microbiology 01/01 1930 UPPER RESP: Surveillance Culture - COMP 01/01 1930 GI: Surveillance Culture - COMP Recent Imaging Studies: Telemetry tracings were personally reviewed and showed atrial fibrillation with controlled ventricular response rate Assessment/Plan Assessment/Plan 1. Symptomatic hypocalcemia/hypomagnesemia 2. Chronic atrial fibrillation on Xarelto 3. History of hypertension/hyperlipidemia/diabetes mellitus 4. History of mitral regurgitation 5. History of prior thyroidectomy The patient is resting comfortably. Blood pressure remains well controlled. Average heart rate on telemetry is within goal limits. Continue on daily Xarelto. It appears that the patient had an echocardiogram done this morning and I will follow-up those results. Of note the patient did have an outpatient echocardiogram last week which showed normal ejection fraction with moderate to severe MR. Shakeel Fajardo MD [facility] Continue telemetry? Yes
--- NOTE | 2018-01-03 12:13 | ECHOCARDIOGRAM REPORT ---
SANTIAGO NDIAYE Age: 72 : 1945 Gender: F Exam Date: 01/03/2018 10:05 Exam Location: [facility] Ht (in): 60 Wt (lb): 173 BSA: 1.86 BP: 124 / 80 Ordering Physician: Bonnie Bermeo MD Referring Physician: Bonnie Bermeo MD Technologist: Gunner Khan [facility] Room Number: 107-1 Indications: AFIB/FLUTTER Rhythm: Atrial fibrillation Technical Quality: Technically difficult study FINDINGS Left Ventricle Left ventricular cavity size normal. Left ventricular wall thickness at upper limits of normal. No obvious regional wall motion abnormalities. Left ventricular ejection fraction is estimated at 55 Right Ventricle Normal right ventricular size and function. Right Atrium Mild right atrial dilatation. Left Atrium Moderate left atrial dilatation. Mitral Valve Mild mitral annular calcification. Moderate mitral regurgitation. Aortic Valve No aortic stenosis. Trileaflet aortic valve. Tricuspid Valve Structurally normal tricuspid valve. [id number]-exrvbibt tricuspid regurgitation. Unable to estimate the right ventricular systolic pressure. Pulmonic Valve Pulmonic valve not well visualized, grossly normal. Pericardium No pericardial effusion. Great Vessels Normal size aortic root. CONCLUSIONS Technically difficult study. Left ventricular cavity size normal. Left ventricular wall thickness at upper limits of normal. No obvious regional wall motion abnormalities. Left ventricular ejection fraction is estimated at 55 %. Normal right ventricular size and function. Mild right atrial dilatation. Moderate left atrial dilatation. Moderate mitral regurgitation. Dvvd-qf-atjediaz tricuspid regurgitation. Unable to estimate the right ventricular systolic pressure. Quinton Fajardo M.D. (Electronically Signed) Final Date: 03 January 2018 12:12 MEASUREMENTS (Male / Female) Normal Values 2D ECHO LV Diastolic Diameter PLAX 5.5 cm 4.2 - 5.9 / 3.9 - 5.3 cm LV Systolic Diameter PLAX 4.0 cm 2.1 - 4.0 cm LV Fractional Shortening PLAX 27.3 % 25 - 46 % LV Ejection Fraction 2D Teich 52.5 % IVS Diastolic Thickness 1.2 cm LVPW Diastolic Thickness 1.1 cm LV Relative Wall Thickness 0.4 RV Internal Dim ED PLAX 2.8 cm 1.9 - 3.8 cm LVOT Diameter 1.9 cm Aortic Root Diameter 2.4 cm LA Systolic Diameter LX 5.4 cm 3.0 - 4.0 / 2.7 - 3.8 cm LA Volume 151.0 cm 18 - 58 / 22 - 52 cm Ascending Aorta Diameter 3.1 cm DOPPLER AV Peak Velocity 97.9 cm/s AV Peak Gradient 3.8 mmHg AV Mean Velocity 76.0 cm/s AV Mean Gradient 3.0 mmHg AV Velocity Time Integral 21.6 cm LVOT Peak Velocity 65.4 cm/s LVOT Peak Gradient 1.7 mmHg LVOT Mean Velocity 41.0 cm/s LVOT Mean Gradient 1.0 mmHg LVOT Velocity Time Integral 13.1 cm LVOT Stroke Volume 37.1 cm AV Area Cont Eq vti 1.7 cm AV Area Cont Eq pk 1.9 cm MV Peak Velocity 143.0 cm/s MV Peak Gradient 8.2 mmHg MV Mean Velocity 63.8 cm/s MV Mean Gradient 2.0 mmHg Mitral E Point Velocity 117.0 cm/s Mitral A Point Velocity 27.1 cm/s Mitral E to A Ratio 4.3 MV PHT Velocity 141.0 cm/s MV Deceleration [place] 664.0 cm/s MV Pressure Half Time 63.7 ms MV Area PHT 3.5 cm MV Deceleration Time 201.0 ms MR Peak Velocity 500.0 cm/s MR Peak Gradient 100.0 mmHg MR ERO PISA 0.2 cm MR Regurgitant Volume PISA 39.1 cm TR Peak Velocity 274.0 cm/s TR Peak Gradient 30.0 mmHg Right Atrial Pressure 10.0 mmHg Pulmonary Artery Systolic Pressu 40.0 mmHg Right Ventricular Systolic Press 40.0 mmHg PV Peak Velocity 82.7 cm/s PV Peak Gradient 2.7 mmHg PV Mean Velocity 56.9 cm/s PV Mean Gradient 1.0 mmHg PV Velocity Time Integral 16.8 cm LV E' Lateral Velocity 13.5 cm/s Mitral E to LV E' Lateral Ratio 8.7 LV E' Septal Velocity 10.1 cm/s Mitral E to LV E' Septal Ratio 11.6
[2018-01-03 16:00] VITALS: BP 116/80
[2018-01-03 23:04] VITALS: BP 132/88
[2018-01-04 07:05] VITALS: BP 130/88
--- NOTE | 2018-01-04 07:52 | PN- Endocrinology ---
Assessment/Plan Endoscopy Assessment: Patient feels short of breath this morning. She did have a nebulizer treatment with some improvement. Her chest x-ray is pending. Since admission the patient 's Lasix was on hold. She also was on Spironolactone as an outpatient. The patient does not have any numbness or tingling and no muscle cramping at this time. The patient's serum magnesium has been turned and is beginning to come become low again at 1.6. Plan: The patient is being reevaluated as because of shortness of breath. She may need to resume some Lasix. I would discuss this with Dr. Shields who is seeing her in cardiology consultation. The patient's magnesium is beginning to come become low again. I would give her 1 g of magnesium sulfate intravenously today over a 2 hour of time. The patient has no GI losses. 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 We should probably do a spot urine for magnesium and also consider a 24-hour urine for magnesium and calcium excretion when the patient is not receiving IV magnesium treatment.. Subjective Subjective: Feels short of breath Review of Systems Constitutional: Denies: chills, fever. Cardiovascular: Denies: chest pain. Respiratory: Reports: short of breath. Denies: cough. Gastrointestinal: Denies: nausea, vomiting. Skin: Reports: no symptoms. Objective Last 24 Hrs of Vital Signs/I&O Vital Signs Date Time Temp Pulse Resp B/P B/P Pulse O2 O2 Flow FiO2 Mean Ox Delivery Rate 01/04 0705 98.2 92 20 130/88 90 Room Air 01/03 2304 97.5 85 20 132/88 93 01/03 1600 97.6 77 20 116/80 96 Room Air 01/03 0825 97.2 89 22 124/80 93 Nasal 1.0L Cannula 01/03 0800 96 Room Air Intake & Output 01/04 0800 / 0000 01/03 1600 Intake Total 400 700 Output Total 900 Balance 400 -200 Intake, Oral 400 700 Output, Urine 900 Patient 177 lb Weight Vital Signs Date Time Temp Pulse Resp B/P B/P Pulse O2 O2 Flow FiO2 Mean Ox Delivery Rate 01/04 0705 98.2 92 20 130/88 90 Room Air 01/03 2304 97.5 85 20 132/88 93 01/03 1600 97.6 77 20 116/80 96 Room Air 01/03 0825 97.2 89 22 124/80 93 Nasal 1.0L Cannula 01/03 0800 96 Room Air Intake & Output 01/04 0800 01/04 0000 01/03 1600 Intake Total 400 700 Output Total 900 Balance 400 -200 Intake, Oral 400 700 Output, Urine 900 Patient 177 lb Weight Physical Exam General Appearance: alert, awake, comfortable Head: normal appearance Neck: normal inspection Cardiovascular: regular rate/rhythm Abdomen: normal bowel sounds, soft Extremities: normal inspection Current Medications: Current Medications Sig/Diana Start time Last Medication Dose Route Stop Time Status Admin Acetaminophen 650 MG Q6P PRN 01/02 1145 AC 01/04 PO 0613 Albuterol Sulfate 2 PUF Q4H PRN 01/01 1745 AC 01/03 INH 0849 Atorvastatin Calcium 80 MG 1700 01/02 1700 AC 01/03 PO 1700 Calcitriol 0.25 MCG DAILY 01/03 09 AC 01/03 PO 0849 Calcium Carbonate 650 MG BID 01/02 2100 AC 01/03 PO 2107 Cholecalciferol 1,000 IU DAILY 01/03 09 AC 01/03 PO 0848 Diltiazem HCl 360 MG DAILY 01/03 900 DC PO Diltiazem HCl 300 MG DAILY 01/03 09 AC 01/03 PO 0849 Ferrous Sulfate 325 MG DAILY 01/02 09 AC 01/03 PO 0848 Fluticasone 2 PUF BID 01/01 2100 AC 01/03 Propionate INH 2108 Insulin Aspart 0 TIDAC 01/02 08 AC 01/03 SC 1700 Levothyroxine Sodium 0.137 MG DAILY AC 01/02 07 AC 01/04 PO 0610 Losartan Potassium 100 MG DAILY 01/02 900 AC 01/03 PO 0848 Magnesium Oxide 400 MG BID 01/01 2100 AC 01/03 PO 2108 Metoprolol Tartrate 100 MG QAM 01/02 900 AC 01/03 PO 0848 Metoprolol Tartrate 75 MG QPM 01/01 2100 AC 01/03 PO 210 Rivaroxaban 20 MG DAILY 01/02 900 AC 01/03 PO 0848 Results Pertinent Lab/Mateusz Results: Laboratory Tests 01/04 01/04 01/03 0625 0625 0450 Chemistry Sodium (137 - 145 mmol/L) 143 141 Potassium (3.5 - 5.1 mmol/L) 4.6 4.5 Chloride (98 - 107 mmol/L) 99 95 L Carbon Dioxide (22 - 30 mmol/L) 35 H 38 H Anion Gap (5 - 16) 8 8 BUN (7 - 17 mg/dL) 14 16 Creatinine (0.5 - 1.0 mg/dL) 0.7 0.6 Estimated GFR (>60 ml/min) > 60 > 60 Glucose (65 - 99 mg/dL) 116 H 118 H Calcium (8.4 - 10.2 mg/dL) 8.0 L 8.4 Phosphorus (2.5 - 4.5 mg/dL) 4.3 5.5 H Magnesium (1.6 - 2.3 mg/dL) 1.5 L 1.6 Total Bilirubin (0.2 - 1.3 mg/dL) 0.3 0.2 AST (14 - 36 U/L) 18 19 ALT (9 - 52 U/L) 26 22 Myd-N-Aelpolzmfmf Pept (<125 pg/mL) Cancelled 1180 H Albumin (3.5 - 5.0 g/dL) 3.2 L 3.1 L PTH Intact (18.4 - 80.1 pg/ML) 22.2 Hematology CBC w Diff NO MAN DIFF REQ WBC (4.8 - 10.8 /CUMM) 4.8 RBC (4.20 - 5.40 /CUMM) 4.69 Hgb (12.0 - 16.0 G/DL) 10.0 L Hct (37 - 47 %) 31.3 L MCV (81.0 - 99.0 FL) 66.8 L MCH (27.0 - 31.0 PG) 21.3 L MCHC (33.0 - 37.0 G/DL) 31.8 L RDW (11.5 - 14.5 %) 15.5 H Plt Count (130 - 400 /CUMM) 199 MPV (7.4 - 10.4 FL) 8.4 Gran % (42.2 - 75.2 %) 59.6 Lymphocytes % (20.5 - 51.1 %) 31.9 Monocytes % (1.7 - 9.3 %) 6.8 Eosinophils % (0 - 5 %) 1.2 Basophils % (0.0 - 2.0 %) 0.5 Absolute Granulocytes (1.4 - 6.5 /CUMM) 2.9 Absolute Lymphocytes (1.2 - 3.4 /CUMM) 1.5 Absolute Monocytes (0.10 - 0.60 /CUMM) 0.3 Absolute Eosinophils (0.0 - 0.7 /CUMM) 0.1 Absolute Basophils (0.0 - 0.2 /CUMM) 0 01/02 01/02 01/02 1315 1300 0901 Chemistry Sodium (137 - 145 mmol/L) 142 141 Potassium (3.5 - 5.1 mmol/L) 4.6 4.1 Chloride (98 - 107 mmol/L) 95 L 95 L Carbon Dioxide (22 - 30 mmol/L) 37 H 32 H Anion Gap (5 - 16) 10 13 BUN (7 - 17 mg/dL) 15 15 Creatinine (0.5 - 1.0 mg/dL) 0.7 0.6 Estimated GFR (>60 ml/min) > 60 > 60 BUN/Creatinine Ratio (7 - 25 %) 25.0 Glucose (65 - 99 mg/dL) 101 H Calcium (8.4 - 10.2 mg/dL) 8.5 Cancelled 8.7 Phosphorus (2.5 - 4.5 mg/dL) 5.8 H Magnesium (1.6 - 2.3 mg/dL) 2.0 2.2 Iron (37 - 170 ug/dL) 70 TIBC (265 - 497 ug/dL) 428 Ferritin (11.1 - 264 ng/mL) 12.8 Total Bilirubin (0.2 - 1.3 mg/dL) 0.4 AST (14 - 36 U/L) 17 ALT (9 - 52 U/L) 24 Albumin (3.5 - 5.0 g/dL) 3.4 L
--- NOTE | 2018-01-04 07:56 | PN- Housestaff ---
Angel GRIMES,[facility] 01/04/18 0756: Subjective Follow-up For: Hypocalcemia Hypomagnesemia Tele-Events Since Last Visit: Atrial fibrillation with heart rate ranging in 80s-100 Subjective: Seen and examined. Resting comfortably. Son at bedside. Currently on 2 L of oxygen. Patient is Polish speaking and understands little bit of [place]. Complaining of mild back ache secondary to hospital bed. Review of Systems Constitutional: Reports: see HPI. Objective Last 24 Hrs of Vital Signs/I&O Vital Signs Date Time Temp Pulse Resp B/P B/P Pulse O2 O2 Flow FiO2 Mean Ox Delivery Rate 01/04 0801 92 130/88 01/04 0801 102 130/88 01/04 0800 Nasal 2.0L Cannula 01/04 0705 98.2 92 20 130/88 90 Room Air 01/03 2304 97.5 85 20 132/88 93 01/03 1600 97.6 77 20 116/80 96 Room Air Intake & Output 01/04 1600 01/04 0800 01/04 0000 Intake Total 400 Output Total Balance 400 Intake, Oral 400 Patient 177 lb Weight Physical Exam General Appearance: Alert, Oriented X3, Cooperative Cardiovascular: Normal S1, Normal S2, irregular Lungs: basal crackels Abdomen: Normal Bowel Sounds, Soft Neurological: Normal Speech Assessment/Plan Assessment: This is a 72 years old lady with past medical history of hypertension diabetes mellitus hypothyroidism status post thyroidectomy 3 months ago who was supposed to be on magnesium and calcium supplements. She presented with muscle stiffness /spasm and found to have fairly low calcium and magnesium of 5.8 and 0.9. #Episode of hypoxia Patient had an episode of desaturation up to 89% on room was complaining of shortness of breath. There was crackles at the base of her lungs. She is on Lasix 80 mg dose at home along with spironolactone 25 mg. Both of the diuretics are on hold in setting of electrolyte abnormalities. -I am going to resume Lasix at 40 mg for now -Spironolactone will remain on hold -Respiratory status improved patient resident satting 94% on room air #Symptomatic Hypocalcemia secondary to thyroidectomy/right upper parathyroidectomy Patient presented with a low calcium level of 5.8 and was treated with IV calcium gluconate. Her repeat calcium level came out to be 8.7 at that time calcium gluconate drip was stopped -Patient was started on calcium carbonate 50 mg twice daily, Calcitrol 0.25 MCG daily and 1000 IU vitamin D supplementation,. To continue the supplementation as per endo recommendations #Hypomagnesemia Patient presented with magnesium level of 0.9 and was started on magnesium drip. Her level came back to 2.2. 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 Heart rate is acceptable range -Continue Xarelto -Echocardiogram LVEF 55%, moderate LAD, moderate MR, moderate TR. #Type 2 diabetes -Her blood glucoses are in the range of 140 -200 -Insulin sliding scale Full code/DVT prophylaxis-Xarelto/diabetic diet Problem List: 1. Hypomagnesemia Pain Ratin Pain Location: na Pain Goal: Pain 4 or less Pain Plan: prn Tomorrow's Labs & Rationales: bep ca mg Lewis Morgan MD 01/04/18 1152: Attending MD Review Statement Attending Statement Attending MD Statement: examined this patient, discuss w/resident/PA/CUSTOMER COUNTER REPRESENTATIVE, agreed w/resident/PA/CUSTOMER COUNTER REPRESENTATIVE, reviewed EMR data (avail) Attending Assessment/Plan: 72F PMH HTN, T2DM, hypothyroidism s/p thyroidectomy 3 months ago admitted initially to ICU with shortness of breath, found to be severely hypocalcemic and hypomagnesemic and in rapid atrial fibrillation with RVR. Calcium and magnesium have been steadily repleted and patient is improving. Today patient was short of breath, saturation 88% on room air, repeat CXR negative. Still in afib on monitors, more rate controlled. 1. Rapid atrial fibrillation with RVR 2. Hypoxia 3. Hypocalcemia secondary to parathyroidiectomy 4. Hypomagnesemia Plan - Continue on telemetry - Replete calcium and magnesium as warranted - Continue Vitamin D - Follow endocrine and cardiology recommendations - Continue rate control - Started Lasix this morning - Monitor I/O, daily weights - Continue home medications - DVT PPx
--- NOTE | 2018-01-04 08:21 | RADIOLOGY REPORT ---
EXAMINATION: XR PORTABLE CHEST CLINICAL INFORMATION: Pulmonary edema. Sudden desaturation. COMPARISON: None TECHNIQUE: Portable frontal view of the chest was obtained. FINDINGS: There is mild cardiomegaly. Pulmonary vascularity is normal. The lungs are expanded and clear. No gross bony abnormality seen. IMPRESSION: Cardiomegaly without congestion. No acute cardiopulmonary process seen.
--- NOTE | 2018-01-04 09:58 | PN- Cardiology ---
Subjective Subjective: Patient appears to be resting comfortably. Patient had hypoxia this morning necessitating increasing her oxygen Objective Vital Signs and I&Os Vital Signs Date Time Temp Pulse Resp B/P B/P Pulse O2 O2 Flow FiO2 Mean Ox Delivery Rate 01/04 0801 92 130/88 01/04 0801 102 130/88 01/04 0800 Nasal 2.0L Cannula 01/04 0705 98.2 92 20 130/88 90 Room Air 01/03 2304 97.5 85 20 132/88 93 01/03 1600 97.6 77 20 116/80 96 Room Air Intake & Output 01/04 1600 01/04 0800 01/04 0000 01/03 1600 01/03 0800 01/03 0000 Intake Total 400 700 120 600 Output Total 900 400 500 Balance 400 -200 -280 100 Intake, IV 0 Intake, Oral 400 700 120 600 Number 0 0 Bowel Movements Output, Urine 900 400 500 Patient 177 lb Weight Physical Exam: Patient is a well-developed obese female appearing in no acute distress HEENT is unremarkable Neck is supple there is no JVD Lungs bibasilar rales Heart regular rhythm S1 and S2 are normal no gallops or rubs 1/6 ejection murmur at left sternal border Abdomen bowel sounds positive Extremities without edema Neuro awake and alert Skin warm and dry Current Medications: Current Medications Sig/Diana Start time Last Medication Dose Route Stop Time Status Admin Acetaminophen 650 MG Q6P PRN 01/02 1145 AC 01/04 PO 0613 Albuterol Sulfate 2 PUF Q4H PRN 01/01 1745 AC 01/04 INH 0806 Atorvastatin Calcium 80 MG 1700 01/02 1700 AC 01/03 PO 1700 Calcitriol 0.25 MCG DAILY 01/03 09 AC 01/04 PO 0801 Calcium Carbonate 650 MG BID 01/02 2100 AC 01/04 PO 0800 Cholecalciferol 1,000 IU DAILY 01/03 09 AC 01/04 PO 0801 Diltiazem HCl 300 MG DAILY 01/03 09 AC 01/04 PO 0801 Ferrous Sulfate 325 MG DAILY 01/02 09 AC 01/04 PO 0801 Fluticasone 2 PUF BID 01/01 2100 AC 01/04 Propionate INH 0800 Furosemide 40 MG ONE ONE 01/04 0900 DC 01/04 PO 01/04 0901 0914 Insulin Aspart 0 TIDAC 01/02 08 AC 01/03 SC 1700 Levothyroxine Sodium 0.137 MG DAILY AC 01/02 07 AC 01/04 PO 0610 Losartan Potassium 100 MG DAILY 01/02 09 AC 01/04 PO 08 Magnesium Oxide 400 MG BID 01/01 2100 AC 01/04 PO 08 Magnesium Sulfate 1 GM Q2H 01/04 900 AC 01/04 Dextrose/Water 100 ML IV 01/04 1259 0914 Metoprolol Tartrate 100 MG QAM 01/02 900 AC 01/04 PO 08 Metoprolol Tartrate 75 MG QPM 01/01 2100 AC 01/03 PO 210 Rivaroxaban 20 MG DAILY 01/02 900 AC 01/04 PO 08 Results Last 48 Hrs of Labs/Mics: Laboratory Tests 01/04/18 0625: [id number] Pept Cancelled 01/04/18 0625: Anion Gap 8, Estimated GFR > 60, Glucose 116 H, Calcium 8.0 L, Phosphorus 4.3, Magnesium 1.5 L, Total Bilirubin 0.3, AST 18, ALT 26, Xjc-Q-Rrbljonmkqk Pept 1180 H, Albumin 3.2 L 01/03/18 0450: Anion Gap 8, Estimated GFR > 60, Glucose 118 H, Calcium 8.4, Phosphorus 5.5 H, Magnesium 1.6, Total Bilirubin 0.2, AST 19, ALT 22, Albumin 3.1 L, PTH Intact 22.2, CBC w Diff NO MAN DIFF REQ, RBC 4.69, MCV 66.8 L, MCH 21.3 L, MCHC 31.8 L, RDW 15.5 H, MPV 8.4, Gran % 59.6, Lymphocytes % 31.9, Monocytes % 6.8, Eosinophils % 1.2, Basophils % 0.5, Absolute Granulocytes 2.9, Absolute Lymphocytes 1.5, Absolute Monocytes 0.3, Absolute Eosinophils 0.1, Absolute Basophils 0 01/02/18 1315: Anion Gap 10, Estimated GFR > 60, Glucose 101 H, Calcium 8.5, Phosphorus 5.8 H , Magnesium 2.0, Total Bilirubin 0.4, AST 17, ALT 24, Albumin 3.4 L 01/02/18 1300: Calcium Cancelled Telemetry personally reviewed atrial fibrillation with controlled ventricular response Recent Imaging Studies: Echocardiogram CONCLUSIONS Technically difficult study. Left ventricular cavity size normal. Left ventricular wall thickness at upper limits of normal. No obvious regional wall motion abnormalities. Left ventricular ejection fraction is estimated at 55 %. Normal right ventricular size and function. Mild right atrial dilatation. Moderate left atrial dilatation. Moderate mitral regurgitation. [id number] tricuspid regurgitation. Unable to estimate the right ventricular systolic pressure. Quinton Fajardo M.D. Chest x-ray IMPRESSION: Cardiomegaly without congestion. Assessment/Plan Assessment/Plan 1. Symptomatic hypocalcemia/hypomagnesemia 2. Chronic atrial fibrillation on Xarelto 3. History of hypertension/hyperlipidemia/diabetes mellitus 4. Moderate mitral regurgitation 5. History of prior thyroidectomy 6. Hypoxia with bibasilar rales and elevated BNP consistent with fluid overload Recommendations 1. Would resume Lasix at 40 mg daily based upon clinical findings and hypoxia this morning despite lack of evidence for congestive heart failure on chest x- ray. Would not resume Spironolactone at present. 2. Continue Xarelto for stroke prevention Continue telemetry? Yes
[2018-01-04 14:00] VITALS: BP 112/70
[2018-01-04 17:21] VITALS: BP 118/78
[2018-01-04 22:20] VITALS: BP 144/78
[2018-01-05 07:07] VITALS: BP 136/88
--- NOTE | 2018-01-05 07:39 | PN- Housestaff ---
Angel GRIMES,[facility] 01/05/18 0739: Subjective Follow-up For: Hypomagnesemia Hypocalcemia Tele-Events Since Last Visit: Atrial fibrillation 75-80 Subjective: Seen and examined. Resting comfortably. However she was feeling short of breath yesterday and received 20 mg IV Lasix. Today later she also felt short of breath and received 40 mg of IV Lasix. Review of Systems Constitutional: Reports: see HPI. Objective Last 24 Hrs of Vital Signs/I&O Vital Signs Date Time Temp Pulse Resp B/P B/P Pulse O2 O2 Flow FiO2 Mean Ox Delivery Rate 01/05 08 105 130/86 01/05 0824 105 130/86 01/05 0800 Nasal 1.0L Cannula 01/05 0707 98.4 108 12 136/88 95 Nasal 2.0L Cannula 01/04 2220 97.5 67 12 144/78 96 Nasal 2.0L Cannula 01/04 2133 Nasal 1.0L Cannula 01/04 1721 118/78 01/04 1400 98.1 93 16 112/70 91 Room Air Intake & Output 01/05 1600 01/05 0800 01/05 0000 Intake Total Output Total Balance Patient 175 lb Weight Weight Bed scale Measurement Method Physical Exam General Appearance: Alert, Oriented X3, Cooperative Cardiovascular: b/l crackels Abdomen: Soft, No Tenderness, No Hepatospenomegaly Neurological: Normal Speech Current Medications: Current Medications Sig/Diana Start time Last Medication Dose Route Stop Time Status Admin Acetaminophen 650 MG .STK-MED ONE 01/04 1333 DC PO 01/04 1334 Acetaminophen 650 MG Q6P PRN 01/02 1145 AC 01/05 PO 1306 Albuterol Sulfate 2 PUF Q4H PRN 01/01 1745 AC 01/04 INH 0806 Atorvastatin Calcium 80 MG 1700 01/02 1700 AC 01/04 PO 1651 Calcitriol 0.25 MCG DAILY 01/03 900 AC 01/05 PO 0823 Calcium Carbonate 650 MG BID 01/02 2100 AC 01/05 PO 0823 Cholecalciferol 1,000 IU DAILY 01/03 09 AC 01/05 PO 0823 Diltiazem HCl 300 MG DAILY 01/03 09 AC 01/05 PO 0823 Ferrous Sulfate 325 MG DAILY 01/02 09 AC 01/05 PO 0823 Fluticasone 2 PUF BID 01/01 2100 AC 01/05 Propionate INH 0823 Furosemide 40 MG ONCE ONE 01/05 0915 DC 01/05 IV 01/05 0916 1002 Furosemide 20 MG ONCE ONE 01/04 1745 DC 01/04 IV 01/04 1746 1746 Furosemide 40 MG .STK-MED ONE 01/04 1742 DC IV 01/04 1743 Insulin Aspart 0 TIDAC 01/02 08 AC 01/04 SC 1651 Levothyroxine Sodium 0.137 MG DAILY AC 01/02 0700 AC 01/05 PO 0551 Losartan Potassium 100 MG DAILY 01/02 0900 AC 01/05 PO 0824 Magnesium Oxide 400 MG BID 01/05 0920 AC 01/05 PO 1002 Magnesium Oxide 400 MG BID 01/01 2100 AC 01/05 PO 0823 Metoprolol Tartrate 100 MG QAM 01/02 900 AC 01/05 PO 0824 Metoprolol Tartrate 75 MG QPM 01/01 2100 AC 01/04 PO 2129 Patient Medication 1 ED ONE ONE 01/05 1230 NE Teaching ED 01/05 1231 Patient Medication 1 ED ONE ONE 01/04 1630 DC 01/04 Teaching ED 01/04 1631 1651 Rivaroxaban 20 MG DAILY 01/02 900 AC 01/05 PO 0823 Last 24 Hrs of Lab/Mateusz Results Last 24 Hrs of Labs/Mics: Laboratory Tests 01/05/18 0635: Anion Gap 9, Estimated GFR > 60, BUN/Creatinine Ratio 18.8, Calcium 8.9, Magnesium 1.7 01/04/18 1738: Anion Gap 10, Estimated GFR > 60, BUN/Creatinine Ratio 18.9, Calcium 9.0, Phosphorus 5.8 H, Magnesium 1.9 Assessment/Plan Assessment: This is a 72 years old lady with past medical history of hypertension diabetes mellitus hypothyroidism status post thyroidectomy 3 months ago who was supposed to be on magnesium and calcium supplements. She presented with muscle stiffness /spasm and found to have fairly low calcium and magnesium of 5.8 and 0.9. #Episode of hypoxia Patient had an episode of desaturation up to 89% on room was complaining of shortness of breath. There was crackles at the base of her lungs. She is on Lasix 80 mg dose at home along with spironolactone 25 mg. Both of the diuretics are on hold in setting of electrolyte abnormalities. -IV lasix 40 mg -Spironolactone will remain on hold #Symptomatic Hypocalcemia secondary to thyroidectomy/right upper parathyroidectomy Patient presented with a low calcium level of 5.8 and was treated with IV calcium gluconate. Her repeat calcium level came out to be 8.7 at that time calcium gluconate drip was stopped -Patient was started on calcium carbonate 50 mg twice daily, Calcitrol 0.25 MCG daily and 1000 IU vitamin D supplementation,. To continue the supplementation as per endo recommendations #Hypomagnesemia Patient presented with magnesium level of 0.9 and was started on magnesium drip. Her level came back to 2.2. 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 Heart rate is acceptable range -Continue Xarelto -Echocardiogram LVEF 55%, moderate LAD, moderate MR, moderate TR. #Type 2 diabetes -Her blood glucoses are in the range of 140 -200 -Insulin sliding scale Full code/DVT prophylaxis-Xarelto/diabetic diet Problem List: 1. Hypomagnesemia Pain Ratin Pain Location: na Pain Goal: Pain 4 or less Pain Plan: prn Tomorrow's Labs & Rationales: Lewis Dalal MD 01/05/18 1053: Attending MD Review Statement Attending Statement Attending MD Statement: examined this patient, discuss w/resident/PA/FLAME CUTTING SUPERVISOR, agreed w/resident/PA/FLAME CUTTING SUPERVISOR, reviewed EMR data (avail) Attending Assessment/Plan: 72F PMH HTN, T2DM, hypothyroidism s/p thyroidectomy 3 months ago admitted initially to ICU with shortness of breath, found to be severely hypocalcemic and hypomagnesemic and in rapid atrial fibrillation with RVR. Calcium and magnesium have been steadily repleted and patient is improving. Still mildly short of breath today and requiring 1L NC to maintain at 94%. Labs improved. 1. Rapid atrial fibrillation with RVR 2. Hypoxia 3. Hypocalcemia secondary to parathyroidiectomy 4. Hypomagnesemia Plan - Continue on telemetry - Replete calcium and magnesium as warranted - Continue Vitamin D - Follow endocrine and cardiology recommendations - Continue rate control - Given Lasix again this morning - Titrate down oxygen - Monitor I/O, daily weights - Continue home medications - DVT PPx
--- NOTE | 2018-01-05 07:58 | PN- Endocrinology ---
Assessment/Plan Endoscopy Assessment: Patient still feels somewhat short of breath. She is on 2 L of nasal oxygen. She did receive some Lasix yesterday. The patient's magnesium dropped down to 1.5 yesterday before the Lasix and she received 1 g of magnesium sulfate intravenously over 2 hours. Plan: We need to repeat the patient's blood work today including calcium magnesium albumin BUN/creatinine electrolytes. The patient is hypoxic on room air and has rales in her chest. The routine x-ray does not show pulmonary vascular congestion. Consider doing a CT scan of the chest to look for underlying pulmonary disease. Subjective Subjective: Still somewhat short of breath Objective Last 24 Hrs of Vital Signs/I&O Vital Signs Date Time Temp Pulse Resp B/P B/P Pulse O2 O2 Flow FiO2 Mean Ox Delivery Rate 01/05 0707 98.4 108 12 136/88 95 Nasal 2.0L Cannula 01/04 2220 97.5 67 12 144/78 96 Nasal 2.0L Cannula 01/04 2133 Nasal 1.0L Cannula 01/04 1721 118/78 01/04 1400 98.1 93 16 112/70 91 Room Air 01/04 0801 92 130/88 01/04 0801 102 130/88 01/04 0800 Nasal 2.0L Cannula Intake & Output 01/05 0800 01/05 0000 01/04 1600 Intake Total 600 Output Total Balance 600 Intake, IV 200 Intake, Oral 400 Number 1 Bowel Movements Patient 175 lb Weight Weight Bed scale Measurement Method Vital Signs Date Time Temp Pulse Resp B/P B/P Pulse O2 O2 Flow FiO2 Mean Ox Delivery Rate 01/05 0707 98.4 108 12 136/88 95 Nasal 2.0L Cannula 01/04 2220 97.5 67 12 144/78 96 Nasal 2.0L Cannula 01/04 2133 Nasal 1.0L Cannula 01/04 1721 118/78 01/04 1400 98.1 93 16 112/70 91 Room Air 01/04 0801 92 130/88 01/04 0801 102 130/88 01/04 0800 Nasal 2.0L Cannula Intake & Output 01/05 0800 01/05 0000 01/04 1600 Intake Total 600 Output Total Balance 600 Intake, IV 200 Intake, Oral 400 Number 1 Bowel Movements Patient 175 lb Weight Weight Bed scale Measurement Method Physical Exam General Appearance: alert, awake, comfortable Head: normal appearance Neck: normal inspection Respiratory: normal breath sounds Cardiovascular: regular rate/rhythm Abdomen: normal bowel sounds Extremities: normal inspection Current Medications: Current Medications Sig/Diana Start time Last Medication Dose Route Stop Time Status Admin Acetaminophen 650 MG .STK-MED ONE 01/04 1333 DC PO 01/04 1334 Acetaminophen 650 MG Q6P PRN 01/02 1145 AC 01/04 PO 1334 Albuterol Sulfate 2 PUF Q4H PRN 01/01 1745 AC 01/04 INH 0806 Atorvastatin Calcium 80 MG 1700 01/02 1700 AC 01/04 PO 1651 Calcitriol 0.25 MCG DAILY 01/03 0900 AC 01/04 PO 0801 Calcium Carbonate 650 MG BID 01/02 2100 AC 01/04 PO 2129 Cholecalciferol 1,000 IU DAILY 01/03 09 AC 01/04 PO 0801 Diltiazem HCl 300 MG DAILY 01/03 0900 AC 01/04 PO 0801 Ferrous Sulfate 325 MG DAILY 01/02 09 AC 01/04 PO 0801 Fluticasone 2 PUF BID 01/01 2100 AC 01/04 Propionate INH 2129 Furosemide 20 MG ONCE ONE 01/04 1745 DC 01/04 IV 01/04 1746 1746 Furosemide 40 MG .STK-MED ONE 01/04 1742 DC IV 01/04 1743 Furosemide 40 MG ONE ONE 01/04 09 DC 01/04 PO 01/04 0901 0914 Insulin Aspart 0 TIDAC 01/02 0800 AC 01/04 SC 1651 Levothyroxine Sodium 0.137 MG DAILY AC 01/02 0700 AC 01/05 PO 0551 Losartan Potassium 100 MG DAILY 01/02 09 AC 01/04 PO 0801 Magnesium Oxide 400 MG BID 01/01 2100 AC 01/04 PO 2129 Magnesium Sulfate 1 GM Q2H 01/04 0900 DC 01/04 Dextrose/Water 100 ML IV 01/04 1259 1115 Metoprolol Tartrate 100 MG QAM 01/02 09 AC 01/04 PO 0801 Metoprolol Tartrate 75 MG QPM 01/01 2100 AC 01/04 PO 2129 Patient Medication 1 ED ONE ONE 01/04 1630 DC 01/04 Teaching ED 01/04 1631 1651 Rivaroxaban 20 MG DAILY 01/02 09 AC 01/04 PO 0801 Results Pertinent Lab/Mateusz Results: Laboratory Tests 01/0512 0624 1738 0667 0670 Chemistry Sodium (137 - 145 mmol/L) Pending 139 143 Potassium (3.5 - 5.1 mmol/L) Pending 4.7 4.6 Chloride (98 - 107 mmol/L) Pending 91 L 99 Carbon Dioxide (22 - 30 mmol/L) Pending 38 H 35 H Anion Gap (5 - 16) Pending 10 8 BUN (7 - 17 mg/dL) Pending 17 14 Creatinine (0.5 - 1.0 mg/dL) Pending 0.9 0.7 Estimated GFR (>60 ml/min) > 60 > 60 BUN/Creatinine Ratio (7 - 25 %) Pending 18.9 Glucose (65 - 99 mg/dL) 116 H Calcium (8.4 - 10.2 mg/dL) Pending 9.0 8.0 L Phosphorus (2.5 - 4.5 mg/dL) 5.8 H 4.3 Magnesium (1.6 - 2.3 mg/dL) Pending 1.9 1.5 L Total Bilirubin (0.2 - 1.3 mg/dL) 0.3 AST (14 - 36 U/L) 18 ALT (9 - 52 U/L) 26 [id number] Pept (<125 pg/mL) Cancelled 1180 H Albumin (3.5 - 5.0 g/dL) 3.2 L
--- NOTE | 2018-01-05 10:47 | PN- Cardiology ---
Subjective Subjective: Patient with minimal dyspnea this morning. She reports ambulating short distances without difficulty. Objective Vital Signs and I&Os Vital Signs Date Time Temp Pulse Resp B/P B/P Pulse O2 O2 Flow FiO2 Mean Ox Delivery Rate 01/05 0824 105 130/86 01/05 0824 105 130/86 01/05 0800 Nasal 1.0L Cannula 01/05 0707 98.4 108 12 136/88 95 Nasal 2.0L Cannula 01/04 2220 97.5 67 12 144/78 96 Nasal 2.0L Cannula 01/04 2133 Nasal 1.0L Cannula 01/04 1721 118/78 01/04 1400 98.1 93 16 112/70 91 Room Air Intake & Output 01/05 1600 01/05 0800 01/05 0000 01/04 1600 01/04 0800 01/04 0000 Intake Total 600 400 Output Total Balance 600 400 Intake, IV 200 Intake, Oral 400 400 Number 1 Bowel Movements Patient 175 lb 177 lb Weight Weight Bed scale Measurement Method Physical Exam: General: no apparent distress. Alert. Eyes: No obvious scleral icterus. HEENT: No jugular venous distention or abnormal jugular venous pulsations. Cardiovascular: Normal intensity S1/S2. Irregular, 1 out of 6 systolic murmur Respiratory: Lungs clear to auscultation bilaterally. Abdomen: Soft, nontender with no guarding or rebound tenderness. Musculoskeletal: No clubbing or cyanosis noted; no edema Skin: warm Neurologic: No gross focal deficits noted. Current Medications: Current Medications Sig/Diana Start time Last Medication Dose Route Stop Time Status Admin Acetaminophen 650 MG .STK-MED ONE 01/04 1333 DC PO 01/04 1334 Acetaminophen 650 MG Q6P PRN 01/02 1145 AC 01/04 PO 1334 Albuterol Sulfate 2 PUF Q4H PRN 01/01 1745 AC 01/04 INH 0806 Atorvastatin Calcium 80 MG 1700 01/02 1700 AC 01/04 PO 1651 Calcitriol 0.25 MCG DAILY 01/03 09 AC 01/05 PO 0823 Calcium Carbonate 650 MG BID 01/02 2100 AC 01/05 PO 0823 Cholecalciferol 1,000 IU DAILY 01/03 09 AC 01/05 PO 0823 Diltiazem HCl 300 MG DAILY 01/03 09 AC 01/05 PO 0823 Ferrous Sulfate 325 MG DAILY 01/02 900 AC 01/05 PO 0823 Fluticasone 2 PUF BID 01/01 2100 AC 01/05 Propionate INH 0823 Furosemide 40 MG ONCE ONE 01/05 0915 DC 01/05 IV 01/05 0916 1002 Furosemide 20 MG ONCE ONE 01/04 1745 DC 01/04 IV 01/04 1746 1746 Furosemide 40 MG .STK-MED ONE 01/04 1742 DC IV 01/04 1743 Insulin Aspart 0 TIDAC 01/02 0800 AC 01/04 SC 1651 Levothyroxine Sodium 0.137 MG DAILY AC 01/02 0700 AC 01/05 PO 0551 Losartan Potassium 100 MG DAILY 01/02 0900 AC 01/05 PO 0824 Magnesium Oxide 400 MG BID 01/05 0920 AC 01/05 PO 1002 Magnesium Oxide 400 MG BID 01/01 2100 AC 01/05 PO 0823 Magnesium Sulfate 1 GM Q2H 01/04 0900 DC 01/04 Dextrose/Water 100 ML IV 01/04 1259 1115 Metoprolol Tartrate 100 MG QAM 01/02 0900 AC 01/05 PO 0824 Metoprolol Tartrate 75 MG QPM 01/01 2100 AC 01/04 PO 2129 Patient Medication 1 ED ONE ONE 01/04 1630 DC 01/04 Teaching ED 01/04 1631 1651 Rivaroxaban 20 MG DAILY 01/02 0900 AC 01/05 PO 0823 Results Last 48 Hrs of Labs/Mics: Laboratory Tests 01/05/18 0635: Anion Gap 9, Estimated GFR > 60, BUN/Creatinine Ratio 18.8, Calcium 8.9, Magnesium 1.7 01/04/18 1738: Anion Gap 10, Estimated GFR > 60, BUN/Creatinine Ratio 18.9, Calcium 9.0, Phosphorus 5.8 H, Magnesium 1.9 01/04/18 0625: Ufo-N-Tckwtaobtgi Pept Cancelled 01/04/18 0625: Anion Gap 8, Estimated GFR > 60, Glucose 116 H, Calcium 8.0 L, Phosphorus 4.3, Magnesium 1.5 L, Total Bilirubin 0.3, AST 18, ALT 26, Jud-I-Nnehqcbidrd Pept 1180 H, Albumin 3.2 L Recent Imaging Studies: Telemetry tracings were personally reviewed and show atrial fibrillation with grossly controlled ventricular response rate cxr: Cardiomegaly without congestion. No acute cardiopulmonary process seen. Assessment/Plan Assessment/Plan 1. Symptomatic hypocalcemia/hypomagnesemia 2. Chronic atrial fibrillation on Xarelto 3. History of hypertension/hyperlipidemia/diabetes mellitus 4. History of mitral regurgitation 5. History of prior thyroidectomy Patient remains hemodynamically stable. Heart rate is reasonably well- controlled. She currently appears euvolemic on exam and chest x-ray from yesterday showed no evidence of vascular congestion or pleural effusions. Can resume her outpatient diuretic regimen when able. If evidence of hypoxia CT angiogram should be considered although probability of pulmonary embolism is low given her anticoagulation. Shakeel Fajardo MD [facility] Continue telemetry? No
[2018-01-05 14:00] VITALS: BP 126/70
[2018-01-05 22:56] VITALS: BP 106/78
[2018-01-06 06:12] VITALS: BP 110/78
[2018-01-06 07:57] VITALS: BP 134/82
--- NOTE | 2018-01-06 08:00 | PN- Housestaff ---
Angel GRIMES,Isha 01/06/18 0759: Subjective Follow-up For: Hypocalcemia hypomagnesemia Tele-Events Since Last Visit: Atrial fibrillation 75-80 Subjective: Patient seen and examined. Sitting comfortably. She decided earlier to 87% on room air, has been started on 2 L. She is not tachycardic right now, the possibility of pulmonary embolism is low at this point given she is on anticoagulation. I believe we should proceed with CT scan for further evaluation. However patient did not report trouble breathing. Of note patient is Haitian speaking Review of Systems Constitutional: Reports: see HPI. Objective Last 24 Hrs of Vital Signs/I&O Vital Signs Date Time Temp Pulse Resp B/P B/P Pulse O2 O2 Flow FiO2 Mean Ox Delivery Rate 01/06 0758 87 134/82 01/06 0758 87 134/82 01/06 0757 87 134/82 01/06 0612 97.5 54 16 110/78 93 01/06 0000 Nasal 1.0L Cannula 01/05 2256 98.0 94 16 106/78 95 Nasal Cannula 01/05 1600 Room Air 01/05 1400 97.7 81 16 126/70 91 Room Air 01/05 0824 105 130/86 01/05 0824 105 130/86 Intake & Output 01/06 1600 01/06 0800 01/06 0000 Intake Total 120 120 Output Total 500 Balance -380 120 Intake, Oral 120 120 Output, Urine 500 Patient 174 lb Weight Physical Exam General Appearance: Alert, Oriented X3, Cooperative Cardiovascular: IRREGULAR Lungs: B/L CRACKELES Abdomen: Normal Bowel Sounds, Soft Current Medications: Current Medications Sig/Diana Start time Last Medication Dose Route Stop Time Status Admin Acetaminophen 650 MG .STK-MED ONE 01/05 1305 DC PO 01/05 1306 Acetaminophen 650 MG Q6P PRN 01/02 1145 AC 01/05 PO 1306 Albuterol Sulfate 2 PUF Q4H PRN 01/01 1745 AC 01/04 INH 0806 Atorvastatin Calcium 80 MG 1700 01/02 1700 AC 01/05 PO 1716 Calcitriol 0.25 MCG DAILY 01/03 09 AC 01/06 PO 0759 Calcium Carbonate 650 MG BID 01/02 2100 AC 01/06 PO 0758 Cholecalciferol 1,000 IU DAILY 01/03 09 AC 01/06 PO 075 Diltiazem HCl 300 MG DAILY 01/03 900 AC 01/06 PO 0758 Ferrous Sulfate 325 MG DAILY 01/02 900 AC 01/06 PO 0758 Fluticasone 2 PUF BID 01/01 2100 AC 01/05 Propionate INH 2026 Furosemide 40 MG ONCE ONE 01/05 915 DC 01/05 IV 01/06 916 1002 Insulin Aspart 0 TIDAC 01/03 800 AC 01/06 SC 0758 Levothyroxine Sodium 0.137 MG DAILY AC 01/02 700 AC 01/06 PO 0537 Losartan Potassium 100 MG DAILY 01/02 900 AC 01/06 PO 0758 Magnesium Oxide 400 MG BID 01/05 09 DC 01/05 PO 1002 Magnesium Oxide 400 MG BID 01/01 2100 AC 01/06 PO 0759 Metoprolol Tartrate 100 MG QAM 01/02 900 AC 01/06 PO 0758 Metoprolol Tartrate 75 MG QPM 01/01 2100 AC 01/05 PO 2030 Patient Medication 1 ED ONE ONE 01/05 1230 DC Teaching ED 01/05 1231 Rivaroxaban 20 MG DAILY 01/02 900 AC 01/06 PO 0759 Last 24 Hrs of Lab/Mateusz Results Last 24 Hrs of Labs/Mics: Laboratory Tests 01/06/18 0635: Anion Gap 10, Estimated GFR > 60, BUN/Creatinine Ratio 23.8, Calcium Pending, Magnesium 1.6 Assessment/Plan Assessment: This is a 72 years old lady with past medical history of hypertension diabetes mellitus hypothyroidism status post thyroidectomy 3 months ago who was supposed to be on magnesium and calcium supplements. She presented with muscle stiffness /spasm and found to have fairly low calcium and magnesium of 5.8 and 0.9. #Acute hypoxic respiratory failure There was another episode of patient is satting to 87% on room air. She continues to have crackles at the bases of her lungs which are unchanged since admission. She was diuresed yesterday with IV Lasix 40 mg. Spironolactone is on hold for now. She is afebrile for now. The possibility of PE is low patient is on anticoagulation for atrial fibrillation. Not running tachycardic at present. -Proceed to CT for further evaluation because chest x-ray does not show any congestion #Symptomatic Hypocalcemia secondary to thyroidectomy/right upper parathyroidectomy Patient presented with a low calcium level of 5.8 and was treated with IV calcium gluconate. Her repeat calcium level came out to be 8.7 at that time calcium gluconate drip was stopped -Patient is currently on on calcium carbonate 50 mg twice daily, Calcitrol 0.25 MCG daily and 1000 IU vitamin D supplementation. We will continue the supplementation as per endo recommendations #Hypomagnesemia Patient presented with magnesium level of 0.9 and was started on magnesium drip. Her level came back to 2.2. At that point a magnesium drip was stopped and she was started on magnesium oxide 400 mg twice daily for magnesium supplementation. 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 Heart rate is acceptable range -Continue Xarelto -Echocardiogram LVEF 55%, moderate LAD, moderate MR, moderate TR. #Type 2 diabetes -Her blood glucoses are in the range of 140 -200 -Insulin sliding scale Full code/DVT prophylaxis-Xarelto/diabetic diet Problem List: 1. Atrial fibrillation 2. Hypomagnesemia 3. Hypothyroidism Pain Ratin Pain Location: na Pain Goal: Pain 4 or less Pain Plan: prn Tomorrow's Labs & Rationales: bep mg ca Lewis Morgan MD 01/06/18 1139: Attending MD Review Statement Attending Statement Attending MD Statement: examined this patient, discuss w/resident/PA/BIOLOGIST, agreed w/resident/PA/BIOLOGIST, reviewed EMR data (avail) Attending Assessment/Plan: 72F PMH HTN, T2DM, hypothyroidism s/p thyroidectomy 3 months ago admitted initially to ICU with shortness of breath, found to be severely hypocalcemic and hypomagnesemic and in rapid atrial fibrillation with RVR. Calcium and magnesium have been steadily repleted and patient is improving. Still mildly short of breath today and requiring 1L NC to maintain at 94%. Labs improved. 1. Rapid atrial fibrillation with RVR 2. Hypoxia 3. Hypocalcemia secondary to parathyroidiectomy 4. Hypomagnesemia Plan - Continue on telemetry - Obtain CT chest - Replete calcium and magnesium as warranted - Continue Vitamin D - Follow endocrine and cardiology recommendations - Continue rate control - Titrate down oxygen - Continue home medications - DVT PPx - Likely discharge today pending CT chest and follow up
--- NOTE | 2018-01-06 08:00 | Discharge Summary ---
Visit Information Visit Dates Admission Date: 01/01/18 Discharge Date: 01/06/18 Hospital Course Course Attending Physician: Lewis Morgan MD Primary Care Physician: Dani GRIMES,[facility] Course: The patient is 72-year-old female with past medical history hypertension, hyperlipidemia, osteoporosis, diabetes mellitus, and atrial fibrillation on Xarelto. She has history of hypothyroidism for which she underwent thyroidectomy 3 months ago at [facility] and was started on thyroid , calcium, Calcitrol and magnesium supplementation. She presented to [place] ED on 01/01 for evaluation of muscle stiffness and spasm. On presentation patient was found to be in atrial fibrillation with RVR Admission labs were significant for calcium level of 5.8 and magnesium level of 0.9. She was initially admitted to ICU as telemetry hold for management of acute severe hypocalcemia and hypomagnesemia. She was started on IV calcium gluconate and a magnesium drip. Her repeat levels came out to be 8.7 and 2.2 sharp calcium and magnesium respectively. The patient was started on oral calcium carbonate 50 mg twice daily, 1000 IU vitamin D supplementation, 200 mg twice daily magnesium oxide. Her home dose of calcitriol was decreased from 0.5 to 0.25 MCG. Her diuretic regimen of spironolactone 25 mg and Lasix 80 mg was held. Hypercalcemia was most likely secondary to parathyroid blood supply damage during thyroidectomy. Since the patient's PTH was at the lower end of the normal range with low calcium, we suspect partial deficiency of parathyroid hormone. The patient has no GI losses. 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 She will require a spot urine for magnesium and also a 24h urine for magnesium and calcium excretion which can be done as an outpatient. Her dose of diltiazem was increased from 240 to 300 mg on 01/02 for better control of atrial fibrillation with RVR since increase of her dose her heart rate ran in acceptable range and Xarelto was continued echocardiogram was done which showed ejection fraction of 55%, moderate LAD, moderate MR, moderate TR see attached report for more details. The patient was transferred from the ICU to telemetry floor once a bed became available. During her stay on the telemetry floor she became hypoxic up to 89% and 87% on 2 separate occasions. She was diuresed multiple times with oral and IV Lasix. Patient had crackles on presentation which remained unchanged changed and were more consistent with interstitial lung disease rather than CHF. We decided to proceed with the CAT scan which was positive for chronic area of volume loss/consolidation in medial right lower lobe. There was diffuse small airway thickening consistent with chronic small airway disease. Multiple bilateral tiny pulmonary nodules were seen as well. Enlarged pulmonary arteries were suspicious for chronic pulmonary arterial hypertension. At this point there is no acute intervention. Patient has been provided with a referral for supervisor coin machine follow-up for possible biopsy. She was evaluated by her children's aide who stopped spironolactone and decreased her Lasix dose to 40 mg. Her diabetes was managed with insulin sliding scale on discharge. Continuing the metformin. We continued her home dose of levothyroxine. She has been advised to follow-up with her primary care doctor, dental appliance mechanic, supervisor coin machine and children's aide. Referrals have been provided. She was full code during her stay. Allergies: Coded Allergies: NO KNOWN ALLERGIES (06/13/14) Pertinent Lab Results: EXAM TYPE: CAT - CT CHEST WO IV CONTRAST EXAMINATION: CT CHEST WITHOUT CONTRAST CLINICAL INFORMATION: Looking for any acute cardiopulmonary pathology. PE less likely. Patient on anticoagulation for atrial fibrillation. Frequent desaturation without any evidence of pulmonary edema on chest x-ray. COMPARISON: Several prior chest x-rays, most recent of which is dated 01/04/2018. CT scan of the chest dated 10/15/2012. TECHNIQUE: Multidetector volumetric CT imaging of the chest was obtained noncontrast. Sagittal and coronal reformations were obtained. DLP: 216.96 mGy-cm. FINDINGS: LUNGS: Evaluation is limited by breathing motion artifact. There is a chronic area of volume loss and consolidation with associated tubular traction bronchiectasis in the medial paraspinal location of the right lower lobe, unchanged dating back to 10/15/2012. There is also diffuse thickening of the small airways in the periphery of the right lower lobe, suggesting chronic small airways disease. The lungs bilaterally are otherwise well expanded with only a few linear areas of chronic atelectasis or scarring seen. Several nodular densities are seen as follows: 1. There is a tiny 2 mm solid noncalcified nodule seen in the right upper lobe (series 4, image 127), unchanged from 2013. 2. Tiny 2 mm solid noncalcified nodule more inferiorly within the right upper lobe (series 4, image 196) is also seen, not clearly appreciated on prior thicker section imaging. 3. A 3 mm solid noncalcified lingular nodule (series 4, image 194) was also faintly visualized in 2013. 4. A densely calcified nodule is seen inferiorly in the lingula (series 4, image 219), consistent with a granuloma, not definitely seen on prior imaging. 5. A 4 mm solid noncalcified left major fissure-based nodule (series 4, image 228) is similar to the previous exam, likely a small fissural based lymph node. 6. A tiny 2 mm solid noncalcified nodule in the left lower lobe (series 4, image 247) is not definitely seen on prior imaging. 7. There is a 3 mm solid noncalcified nodule in the right lower lobe (series 4, image 286), not appreciated on prior study due to consolidation in this region previously. No effusion or pneumothorax. Central airways patent. LYMPHOVASCULAR STRUCTURES: Aortic size normal. Mild atherosclerotic calcifications of the aorta. Heart size enlarged with four-chamber dilatation of the heart seen, consistent with dilated cardiomyopathy. Mild coronary artery calcifications are noted. No pericardial effusion. The main pulmonary artery is enlarged, measuring 3.2 cm in diameter. Right main pulmonary artery measures 3.0 cm and the left main pulmonary artery 3.2 cm. Similar findings were seen on 10/15/2012, raising the suspicion of chronic pulmonary arterial hypertension. No mediastinal, hilar or axillary adenopathy or free fluid collection. THYROID GLAND: Unremarkable to the extent included. UPPER ABDOMEN: Small calcification along the capsular margin of the liver is again seen, incompletely included. Fatty infiltration and mild atrophy of the included portions of the pancreas seen. Slight nodularity of the left adrenal gland again noted, stable from prior exam. Included portions of the solid organs in the upper abdomen otherwise unremarkable. BONES: Moderate vertebral spondylosis in the mid and lower thoracic spine. Diffuse osteopenia. No suspicious focal findings. IMPRESSION: 1. Chronic area of volume loss and consolidation with associated traction bronchiectasis in the medial right lower lobe, unchanged dating back to 10/15/2012. There is also diffuse small airway thickening in the right lower lobe, consistent with chronic small airways disease. 2. Multiple bilateral tiny pulmonary nodules, some of which were noted previously as well and are unchanged, whereas others were not definitely seen previously or were obscured by lung parenchymal consolidation. Largest nodule measures 4 mm in size and is most consistent with a left major fissure-based lymph node. Other 2 to 4 mm nodular densities in the lungs are of doubtful clinical significance. If the patient has no underlying risk factors, no routine follow-up is required. If the patient has underlying risk factors, optional CT scan follow-up in 12 months can be performed. 3. Enlarged pulmonary arteries, similar to 2013, suspicious for chronic pulmonary arterial hypertension. 4. Dilated cardiomyopathy. 5. Mild coronary artery calcifications. Disposition Summary Disposition Principal Diagnosis: Hypocalcemia Additional Diagnosis: Hypomagnesemia Atrial fibrillation with RVR Discharge Disposition: home or self care Discharge Instructions General Discharge Information Code Status: Full Code Patient's Diet: As tolerated Patient's Activity: As tolerated Follow-Up Instructions/Appts: Follow-up with cardiology, pulmonology and primary care. One-week appointment with endocrinology Medications at Discharge Discharge Medications: Stop taking the following medications: Diltiazem HCl (Diltiazem 24HR ER) 240 MG CAP.ER.24H ORAL DAILY Furosemide (Lasix) 80 MG TABLET ORAL TAKE AT BEDTIME Spironolactone (Spironolactone) 25 MG TABLET ORAL DAILY Qty = 30 Calcitriol (Calcitriol) 0.5 MCG CAPSULE ORAL DAILY Qty = 60 Calcium Carbonate (Oysco-500) 500 MG CALCIUM (1,250 MG) TABLET ORAL EVERY SIX HOURS Qty = 120 Continue taking these medications: Metoprolol Tartrate (Lopressor) 50 MG TABLET 2 Tablet ORAL Every Morning Comments: Last Taken:01/06/18 Time:7:58 AM Rosuvastatin Calcium (Crestor) 20 MG TABLET 1 Tablet ORAL Every night Comments: GIVEN ATORVASTATIN IN HOSPITAL SUBSTITUTE LAST GIVEN 01/06/18 AT 4:39 PM Rivaroxaban (Xarelto) 20 MG TABLET 1 Tablet ORAL DAILY Instructions: with food Comments: Last Taken:01/06/18 Time:7:59 AM Albuterol Sulfate (Proair Hfa) 90 MCG HFA.AER.AD 2 Puff Inhale through mouth Q4H as needed for SOB/WHEEZING Comments: Last Taken:01/04/18 Time:8:06 AM VENTOLIN GIVEN IN HOSPITAL. Fluticasone Propionate (Flovent Hfa) 220 MCG AER.W.ADAP 1 PUFF Inhale through mouth TWICE DAILY Comments: Last Taken:01/06/18 Time:9:29 AM Metformin HCl (Glucophage) 850 MG TABLET 1 Tablet ORAL TWICE DAILY Metoprolol Tartrate (Lopressor) 50 MG TABLET 1.5 Tablet ORAL Every night Comments: Last Taken:01/05/18 Time:8:30 PM Magnesium Oxide (Magnesium) 400 MG CAPSULE 1 Capsule ORAL TWICE DAILY Comments: Last Taken:01/06/18 Time:7:59 AM Ferrous Sulfate (Ferrous Sulfate) 324 MG (65 MG IRON) TABLET.DR 1 Tablet ORAL DAILY Qty = 30 Comments: Last Taken:01/06/18 Time:7:58 AM Levothyroxine Sodium (Levothyroxine Sodium) 137 MCG TABLET 1 Tablet ORAL DAILY Qty = 30 Comments: Last Taken:01/06/18 Time:5:37 AM Losartan Potassium (Losartan Potassium) 100 MG TABLET 1 Tablet ORAL DAILY Qty = 30 Comments: Last Taken:01/06/18 Time:7:58 AM Potassium Chloride (Potassium Chloride) 20 MEQ TAB.ER.PRT 1 Tablet ORAL DAILY Qty = 30 Start taking the following new medications: Cholecalciferol (Vitamin D3) 1,000 UNIT TABLET 1 Tablet ORAL DAILY Qty = 30 No Refills Instructions: . Comments: Last Taken:01/06/18 Time:7:59 AM Calcitriol (Calcitriol) 0.25 MCG CAPSULE 1 Tablet ORAL DAILY Qty = 30 No Refills Instructions: . Comments: Last Taken:01/06/18 Time:7:59 AM Calcium Carbonate (Calcium Carbonate) 260 MG CALCIUM (648 MG) TABLET 1 Tablet ORAL TWICE DAILY Qty = 30 No Refills Instructions: . Furosemide (Lasix) 40 MG TABLET 1 Tablet ORAL DAILY Qty = 30 No Refills Instructions: . Comments: Last Taken:01/06/18 Time:1:39 PM Diltiazem HCl (Diltiazem 24HR Cd) 300 MG CAP.ER.24H 1 Tablet ORAL DAILY Qty = 30 No Refills Instructions: . Comments: Last Taken:01/06/18 Time:7:58 AM Copies To: Dani GRIMES,Sonal; Suri GRIMES,Wayne Coello; Adolfo GRIMES,Pablo Avelar; Garrett GRIMES,Anibal Lindquist Attending MD Review Statement Documenting Attending: Lewis Morgan MD
--- NOTE | 2018-01-06 08:24 | PN- Endocrinology ---
Assessment/Plan Endoscopy Assessment: The patient still feels short of breath. The patient's serum calcium is pending. Her magnesium is 1.6. BUN is 19 and creatinine 0.8. The patient still desaturates 1 her oxygen is removed. His serum albumin was not done. Plan: Suggest continue the present calcium and magnesium supplements. Continue to monitor her levels daily. When calcium is ordered we should also order also serum albumin. Otherwise it is difficult to interpret the total calcium level. The patient needs a CT scan of her chest to clarify the pulmonary process in view of the fact that the patient has rales without evidence of pulmonary vascular congestion or pulmonary edema on x-ray. Subjective Subjective: feels ok Objective Last 24 Hrs of Vital Signs/I&O Vital Signs Date Time Temp Pulse Resp B/P B/P Pulse O2 O2 Flow FiO2 Mean Ox Delivery Rate 01/06 0758 87 134/82 01/06 0758 87 134/82 01/06 0757 87 134/82 01/06 0612 97.5 54 16 110/78 93 01/06 0000 Nasal 1.0L Cannula 01/05 2256 98.0 94 16 106/78 95 Nasal Cannula 01/05 1600 Room Air 01/05 1400 97.7 81 16 126/70 91 Room Air 01/05 0824 105 130/86 01/05 0824 105 130/86 Intake & Output 01/06 1600 01/06 0800 01/06 0000 Intake Total 120 120 Output Total 500 Balance -380 120 Intake, Oral 120 120 Output, Urine 500 Patient 174 lb Weight Vital Signs Date Time Temp Pulse Resp B/P B/P Pulse O2 O2 Flow FiO2 Mean Ox Delivery Rate 01/06 0758 87 134/82 01/06 0758 87 134/82 01/06 0757 87 134/82 01/06 0612 97.5 54 16 110/78 93 01/06 0000 Nasal 1.0L Cannula 01/05 2256 98.0 94 16 106/78 95 Nasal Cannula 01/05 1600 Room Air 01/05 1400 97.7 81 16 126/70 91 Room Air 01/05 0824 105 130/86 01/05 0824 105 130/86 Intake & Output 01/06 1600 01/06 0800 01/06 0000 Intake Total 120 120 Output Total 500 Balance -380 120 Intake, Oral 120 120 Output, Urine 500 Patient 174 lb Weight Current Medications: Current Medications Sig/Diana Start time Last Medication Dose Route Stop Time Status Admin Acetaminophen 650 MG .STK-MED ONE 01/05 1305 DC PO 01/05 1306 Acetaminophen 650 MG Q6P PRN 01/02 1145 AC 01/05 PO 1306 Albuterol Sulfate 2 PUF Q4H PRN 01/01 1745 AC 01/04 INH 0806 Atorvastatin Calcium 80 MG 1700 01/02 1700 AC 01/05 PO 1716 Calcitriol 0.25 MCG DAILY 01/03 09 AC 01/06 PO 0759 Calcium Carbonate 650 MG BID 01/02 2100 AC 01/06 PO 0758 Cholecalciferol 1,000 IU DAILY 01/03 09 AC 01/06 PO 0759 Diltiazem HCl 300 MG DAILY 01/03 09 AC 01/06 PO 0758 Ferrous Sulfate 325 MG DAILY 01/02 900 AC 01/06 PO 0758 Fluticasone 2 PUF BID 01/01 2100 AC 01/05 Propionate INH 2027 Furosemide 40 MG ONCE ONE 01/05 09 DC 01/05 IV 01/05 09 1002 Insulin Aspart 0 TIDAC 01/02 08 AC 01/06 SC 0758 Levothyroxine Sodium 0.137 MG DAILY AC 01/02 0700 AC 01/06 PO 0537 Losartan Potassium 100 MG DAILY 01/02 09 AC 01/06 PO 0758 Magnesium Oxide 400 MG BID 01/05 09 DC 01/05 PO 1002 Magnesium Oxide 400 MG BID 01/01 2100 AC 01/06 PO 0759 Metoprolol Tartrate 100 MG QAM 01/02 09 AC 01/06 PO 0758 Metoprolol Tartrate 75 MG QPM 01/01 2100 AC 01/05 PO 2030 Patient Medication 1 ED ONE ONE 01/05 1230 AL Teaching ED 01/05 1231 Rivaroxaban 20 MG DAILY 01/02 09 AC 01/06 PO 0759 Results Pertinent Lab/Mateusz Results: Laboratory Tests 01/06 01/05 01/04 0635 0635 1738 Chemistry Sodium (137 - 145 mmol/L) 141 140 139 Potassium (3.5 - 5.1 mmol/L) 4.8 4.9 4.7 Chloride (98 - 107 mmol/L) 88 L 90 L 91 L Carbon Dioxide (22 - 30 mmol/L) 43 H 41 H 38 H Anion Gap (5 - 16) 10 9 10 BUN (7 - 17 mg/dL) 19 H 15 17 Creatinine (0.5 - 1.0 mg/dL) 0.8 0.8 0.9 Estimated GFR (>60 ml/min) > 60 > 60 > 60 BUN/Creatinine Ratio (7 - 25 %) 23.8 18.8 18.9 Calcium (8.4 - 10.2 mg/dL) Pending 8.9 9.0 Phosphorus (2.5 - 4.5 mg/dL) 5.8 H Magnesium (1.6 - 2.3 mg/dL) 1.6 1.7 1.9
--- NOTE | 2018-01-06 09:17 | PN- Cardiology ---
Subjective Subjective: Telemetry reviewed. Atrial fibrillation with controlled ventricular response. Patient claims to feel well although she desaturates. Objective Vital Signs and I&Os Vital Signs Date Time Temp Pulse Resp B/P B/P Pulse O2 O2 Flow FiO2 Mean Ox Delivery Rate 01/06 0800 94 Nasal 2.0L Cannula 01/06 0758 87 134/82 01/06 0758 87 134/82 01/06 0757 87 134/82 01/06 0612 97.5 54 16 110/78 93 01/06 0000 Nasal 1.0L Cannula 01/05 2256 98.0 94 16 106/78 95 Nasal Cannula 01/05 1600 Room Air 01/05 1400 97.7 81 16 126/70 91 Room Air Intake & Output 01/06 1600 01/06 0800 01/06 0000 01/05 1600 01/05 0800 01/05 0000 Intake Total 120 120 650 Output Total 500 Balance -380 120 650 Intake, Oral 120 120 650 Output, Urine 500 Patient 174 lb 175 lb 175 lb Weight Weight Bed scale Measurement Method Physical Exam: On physical exam she feels well. Head normocephalic atraumatic Eyes sclera anicteric conjunctiva showed no pallor extraocular muscles are normal Neck no jugular venous tension no thyroid masses no palpable nodes Chest lungs revealed bilateral diffuse coarse crackles suggestive of interstitial lung disease. Heart irregular rhythm with a ventricular rate around 80 1/6 to 2/6 systolic murmur Abdomen soft no organomegaly bowel sounds normal Extremities no clubbing cyanosis or edema Neurological no gross motor or sensory deficits Current Medications: Current Medications Sig/Diana Start time Last Medication Dose Route Stop Time Status Admin Acetaminophen 650 MG .STK-MED ONE 01/05 1305 DC PO 01/05 1306 Acetaminophen 650 MG Q6P PRN 01/02 1145 AC 01/05 PO 1306 Albuterol Sulfate 2 PUF Q4H PRN 01/01 1745 AC 01/04 INH 0806 Atorvastatin Calcium 80 MG 1700 01/02 1700 AC 01/05 PO 1716 Calcitriol 0.25 MCG DAILY 01/03 900 AC 01/06 PO 0759 Calcium Carbonate 650 MG BID 01/02 2100 AC 01/06 PO 0758 Cholecalciferol 1,000 IU DAILY 01/03 09 AC 01/06 PO 0759 Diltiazem HCl 300 MG DAILY 01/03 09 AC 01/06 PO 0758 Ferrous Sulfate 325 MG DAILY 01/02 900 AC 01/06 PO 0758 Fluticasone 2 PUF BID 01/01 2100 AC 01/06 Propionate INH 0929 Insulin Aspart 0 TIDAC 01/03 800 AC 01/06 SC 0758 Levothyroxine Sodium 0.137 MG DAILY AC 01/02 07 AC 01/06 PO 0537 Losartan Potassium 100 MG DAILY 01/02 900 AC 01/06 PO 0758 Magnesium Oxide 400 MG BID 01/05 0920 DC 01/05 PO 1002 Magnesium Oxide 400 MG BID 01/01 2100 AC 01/06 PO 0759 Metoprolol Tartrate 100 MG QAM 01/02 900 AC 01/06 PO 0758 Metoprolol Tartrate 75 MG QPM 01/01 2100 AC 01/05 PO 2030 Patient Medication 1 ED ONE ONE 01/05 1230 DC Teaching ED 01/05 1231 Rivaroxaban 20 MG DAILY 01/02 900 AC 01/06 PO 0759 Results Last 48 Hrs of Labs/Mics: Laboratory Tests 01/06/18 0635: Anion Gap 10, Estimated GFR > 60, BUN/Creatinine Ratio 23.8, Calcium 8.9, Magnesium 1.6, Albumin 3.8 01/05/18 0635: Anion Gap 9, Estimated GFR > 60, BUN/Creatinine Ratio 18.8, Calcium 8.9, Magnesium 1.7 01/04/18 1738: Anion Gap 10, Estimated GFR > 60, BUN/Creatinine Ratio 18.9, Calcium 9.0, Phosphorus 5.8 H, Magnesium 1.9 Assessment/Plan Assessment/Plan In summary this 72-year-old female has the following problems 1. Symptomatic hypocalcemia/hypomagnesemia 2. Chronic atrial fibrillation on Xarelto 3. History of hypertension/hyperlipidemia/diabetes mellitus 4. History of mitral regurgitation moderate. No significant pulmonary hypertension. 5. History of prior thyroidectomy 6. Suspect interstitial lung disease from clinical examination. Bilateral coarse crackles in lung garcia. Patient remains hemodynamically stable. Heart rate is reasonably well- controlled. She currently appears euvolemic on exam and chest x-ray from yesterday showed no evidence of lung congestion. I suspect she has interstitial lung disease causing her desaturation. Discussed pulmonary findings with house staff. CT scan of the chest noncontrast suggested. I do not believe she needs high doses of diuretics. I would decrease her furosemide to 40 mg a day. Discontinue Spironolactone. Pursue pulmonary etiology for desaturation. Continue rate lowering medications and Xarelto. Continue telemetry? Not applicable
[2018-01-06] MEDS ORDERED: DILTIAZEM 24HR300 M2 PO ×2 (10:06→16:43)
[2018-01-06] MEDS ORDERED: LASIX40 M1 PO ×2 (10:07→16:43)
[2018-01-06 14:00] VITALS: BP 112/60
--- NOTE | 2018-01-06 15:25 | CT SCAN REPORT ---
EXAMINATION: CT CHEST WITHOUT CONTRAST CLINICAL INFORMATION: Looking for any acute cardiopulmonary pathology. PE less likely. Patient on anticoagulation for atrial fibrillation. Frequent desaturation without any evidence of pulmonary edema on chest x-ray. COMPARISON: Several prior chest x-rays, most recent of which is dated 01/04/2018. CT scan of the chest dated 10/15/2012. TECHNIQUE: Multidetector volumetric CT imaging of the chest was obtained noncontrast. Sagittal and coronal reformations were obtained. DLP: 216.96 mGy-cm. FINDINGS: LUNGS: Evaluation is limited by breathing motion artifact. There is a chronic area of volume loss and consolidation with associated tubular traction bronchiectasis in the medial paraspinal location of the right lower lobe, unchanged dating back to 10/15/2012. There is also diffuse thickening of the small airways in the periphery of the right lower lobe, suggesting chronic small airways disease. The lungs bilaterally are otherwise well expanded with only a few linear areas of chronic atelectasis or scarring seen. Several nodular densities are seen as follows: 1. There is a tiny 2 mm solid noncalcified nodule seen in the right upper lobe (series 4, image 127), unchanged from 2013. 2. Tiny 2 mm solid noncalcified nodule more inferiorly within the right upper lobe (series 4, image 196) is also seen, not clearly appreciated on prior thicker section imaging. 3. A 3 mm solid noncalcified lingular nodule (series 4, image 194) was also faintly visualized in 2013. 4. A densely calcified nodule is seen inferiorly in the lingula (series 4, image 219), consistent with a granuloma, not definitely seen on prior imaging. 5. A 4 mm solid noncalcified left major fissure-based nodule (series 4, image 228) is similar to the previous exam, likely a small fissural based lymph node. 6. A tiny 2 mm solid noncalcified nodule in the left lower lobe (series 4, image 247) is not definitely seen on prior imaging. 7. There is a 3 mm solid noncalcified nodule in the right lower lobe (series 4, image 286), not appreciated on prior study due to consolidation in this region previously. No effusion or pneumothorax. Central airways patent. LYMPHOVASCULAR STRUCTURES: Aortic size normal. Mild atherosclerotic calcifications of the aorta. Heart size enlarged with four-chamber dilatation of the heart seen, consistent with dilated cardiomyopathy. Mild coronary artery calcifications are noted. No pericardial effusion. The main pulmonary artery is enlarged, measuring 3.2 cm in diameter. Right main pulmonary artery measures 3.0 cm and the left main pulmonary artery 3.2 cm. Similar findings were seen on 10/15/2012, raising the suspicion of chronic pulmonary arterial hypertension. No mediastinal, hilar or axillary adenopathy or free fluid collection. THYROID GLAND: Unremarkable to the extent included. UPPER ABDOMEN: Small calcification along the capsular margin of the liver is again seen, incompletely included. Fatty infiltration and mild atrophy of the included portions of the pancreas seen. Slight nodularity of the left adrenal gland again noted, stable from prior exam. Included portions of the solid organs in the upper abdomen otherwise unremarkable. BONES: Moderate vertebral spondylosis in the mid and lower thoracic spine. Diffuse osteopenia. No suspicious focal findings. IMPRESSION: 1. Chronic area of volume loss and consolidation with associated traction bronchiectasis in the medial right lower lobe, unchanged dating back to 10/15/2012. There is also diffuse small airway thickening in the right lower lobe, consistent with chronic small airways disease. 2. Multiple bilateral tiny pulmonary nodules, some of which were noted previously as well and are unchanged, whereas others were not definitely seen previously or were obscured by lung parenchymal consolidation. Largest nodule measures 4 mm in size and is most consistent with a left major fissure-based lymph node. Other 2 to 4 mm nodular densities in the lungs are of doubtful clinical significance. If the patient has no underlying risk factors, no routine follow-up is required. If the patient has underlying risk factors, optional CT scan follow-up in 12 months can be performed. 3. Enlarged pulmonary arteries, similar to 2013, suspicious for chronic pulmonary arterial hypertension. 4. Dilated cardiomyopathy. 5. Mild coronary artery calcifications.
[2018-01-06] MEDS ORDERED: VITAMIN D31000 UNI2 PO ×2 (16:03→16:43)
[2018-01-06] MEDS ORDERED: CALCITRIOL0.25 MC1 PO ×2 (16:17→16:43)
[2018-01-06] MEDS ORDERED: CALCIUM CARBON260 M1 PO ×2 (16:17→16:43)
--- NOTE | 2018-01-06 16:23 | Patient Discharge Instructions ---
Discharge Instructions General Discharge Information You were seen/treated for: Low calcium and low magnesium number Special Instructions: -Please follow-up with endocrinology Dr. Tucker in next week -Please follow-up with your primary care doctor -Please follow-up with cardiology within 1 week of discharge -Please follow-up with pulmonology within 1 week of discharge -Please look at the changes made in her medication. Diet Recommended Diet: Heart Healthy Activity Activity Self Limited: Yes Acute Coronary Syndrome Inclusion Criteria At DC or during hospital stay patient has or had the following: ACS DIAGNOSIS No Discharge Core Measures Meds if any: Prescribed or Continued at Discharge Meds if any: NOT Prescribed or Continued at Discharge Congestive Heart Failure Inclusion Criteria At DC or during hospital stay patient has or had the following: CHF DIAGNOSIS No Discharge Core Measures Meds if any: Prescribed or Continued at Discharge Meds if any: NOT Prescribed or Continued at Discharge Cerebrovascular accident Inclusion Criteria At DC or during hospital stay patient has or had the following: CVA/TIA Diagnosis No Discharge Core Measures Meds if any: Prescribed or Continued at Discharge Meds if any: NOT Prescribed or Continued at Discharge Venous thromboembolism Inclusion Criteria VTE Diagnosis No VTE Type NONE VTE Confirmed by (Test) NONE Discharge Core Measures - Per Current guidelines, there needs to be overlap - treatment for the first 5 days of Warfarin therapy. - If discharged on Warfarin prior to 5 days of - overlap therapy, the patient will need to be - assessed for post discharge needs including - *Post discharge parental anticoagulation - *Warfarin and/or parental anticoagulation education - *Follow up date to check INR post discharge At least 5 days overlap therapy as Inpatient No Meds if any: Prescribed or Continued at Discharge Note: Overlap Therapy is Warfarin and Anticoagulant Meds if any: NOT Prescribed or Continued at Discharge
== END 2018-01-06 18:25 | DRG 425 ==
LOC: ERH 12:21 → CRI 15:44 → ERHI 15:44 → ENRESERV 17:18 → ENTRNSPT 19:01 → EDTRNSPT 19:33 → EDTRNSPTSTS 19:33 → CRI 19:33 → CMPTRNSPT 19:38 → CRI 01-03 11:31 → 1NO 01-03 22:26 → ENPENDDIS 01-06 17:00 → 1NO 01-06 18:25
PROVIDERS: Emergency Medicine; Internal Medicine Adolescent Medicine; Preventive Medicine Public Health & General Preventive Medicine
DX: E83.51 Hypocalcemia (principal); E83.42 Hypomagnesemia; I48.2 Chronic atrial fibrillation; Z79.01 Long term (current) use of anticoagulants; I10 Essential (primary) hypertension; I11.0 Hypertensive heart disease with heart failure; I50.32 Chronic diastolic (congestive) heart failure; E11.9 Type 2 diabetes mellitus without complications; Z79.84 Long term (current) use of oral hypoglycemic drugs; E89.2 Postprocedural hypoparathyroidism; E89.0 Postprocedural hypothyroidism; E66.9 Obesity, unspecified; Z68.33 Body mass index [BMI] 33.0-33.9, adult; Z85.850 Personal history of malignant neoplasm of thyroid; Z91.19 Patient's noncompliance with other medical treatment and regimen; E78.5 Hyperlipidemia, unspecified; M81.0 Age-related osteoporosis without current pathological fracture; I48.91 Unspecified atrial fibrillation; I27.20 Pulmonary hypertension, unspecified
CPT/HCPCS: 1NP; CCU; 36415; 36592; 71045; 82436; 93005; 93010; 93306; 96374; 96375; 99291; J0610; J1940; J3490; J7040

== ENCOUNTER 2018-01-15 08:31 | Inpatient (IN) | payer OTHER ==
[~2018-01-15] VITALS: Ht 142.2 cm; Wt 81.8 kg
[~2018-01-15 08:31] MED LIST changes: +CALCITRIOL0.25 MC1 PO; +CALCITRIOL0.5 MC1 PO; +CALCIUM CARBON260 M1 PO; +CEFUROXIME500 MG PO; +DILTIAZEM 24HR300 M2 PO; +FERROUS SULFAT324 MG PO; +LASIX40 M1 PO; +LEVOTHYROXINE137 MCG PO; +LOSARTAN POTAS100 M1 PO; +MAGNESIUM400 M1 PO; +OYSCO-500500 MG PO; +POTASSIUM CHLO20 ME2 PO; +SPIRONOLACTONE25 M1 PO; +VITAMIN D31000 UNI2 PO
--- NOTE | 2018-01-15 08:39 | ED GENERAL ADULT ---
See Addendum History of Present Illness General Chief Complaint: Dyspnea (COPD, CHF, Other) Stated Complaint: SOB WITH CARDIAC HX Source: patient, family Exam Limitations: poor historian Vital Signs & Intake/Output Vital Signs & Intake/Output Vital Signs Date Time Temp Pulse Resp B/P B/P Pulse O2 O2 Flow FiO2 Mean Ox Delivery Rate 01/15 1000 99.0 110 22 135/77 94 Nasal 2.0L Cannula 01/15 0943 96 Nasal 2.0L Cannula 01/15 0921 99.0 100 20 138/72 95 Nasal 3.0L Cannula 01/15 0900 95 Nasal 3.0L Cannula 01/15 0837 98.6 106 22 136/85 92 Nasal 3.0L Cannula Allergies Coded Allergies: NO KNOWN ALLERGIES (06/13/14) Reconcile Medications Albuterol Sulfate (Proair Hfa) 90 MCG HFA.AER.AD 2 PUF INH Q4H PRN SOB/ WHEEZING (Reported) Calcitriol 0.25 MCG CAPSULE 1 TAB PO DAILY SUPPLEMENTATION . Calcium Carbonate 260 MG CALCIUM (648 MG) TABLET 1 TAB PO BID SUPPLEMENT . Cholecalciferol (Vitamin D3) 1,000 UNIT TABLET 1 TAB PO DAILY supplement . Diltiazem HCl (Diltiazem 24HR Cd) 300 MG CAP.ER.24H 1 TAB PO DAILY HEART RATE . Ferrous Sulfate 324 MG (65 MG IRON) TABLET.DR 1 TAB PO DAILY SUPPLEMENT ( Reported) Fluticasone Propionate (Flovent Hfa) 220 MCG AER.W.ADAP 1 PUFF INH BID RESPIRATORY (Reported) Furosemide (Lasix) 40 MG TABLET 1 TAB PO DAILY FLUID RETENTION . Levothyroxine Sodium 137 MCG TABLET 1 TAB PO DAILY THYROID (Reported) Losartan Potassium 100 MG TABLET 1 TAB PO DAILY HEART/BP (Reported) Magnesium Oxide (Magnesium) 400 MG CAPSULE 1 CAP PO BID SUPPLEMENT (Reported) Metformin HCl (Glucophage) 850 MG TABLET 1 TAB PO BID DM (Reported) Metoprolol Tartrate (Lopressor) 50 MG TABLET 2 TAB PO QAM HEART/BP (Reported) Metoprolol Tartrate (Lopressor) 50 MG TABLET 1.5 TAB PO QPM HEART/BP ( Reported) Potassium Chloride 20 MEQ TAB.ER.PRT 1 TAB PO DAILY SUPPLEMENT (Reported) Rivaroxaban (Xarelto) 20 MG TABLET 1 TAB PO DAILY BLOOD THINNER (Reported) with food Rosuvastatin Calcium (Crestor) 20 MG TABLET 1 TAB PO QPM CHOLESTEROL ( Reported) Triage Note: 72 YO FEMALE TO TRIAGE TO [facility] [place]CE THIS AM. HX OF CHF, PER SON PT WAS RECENTLY ADMITTED TO ICU FOR THE SAME. SA SATS 68%. PT PLACED ON OXYGEN. PT DENIES CHEST PAIN. C/O HEADACHE. Triage Nurses Notes Reviewed? yes Onset: Abrupt Duration: day(s): Timing: recent history HPI: 01/15/18 10:36 AM 72-year-old female presents to the emergency department complaining of difficulty breathing. According to the patient's son she was doing okay until she was recently discharged from the hospital and she developed shortness of breath over the past 24 hours. No chest pain. No fever. She is significantly hypoxic on room air. Past History Travel History Traveled to [place] past 21 day No Medical History Any Pertinent Medical History? 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 No Review of Systems Review of Systems Constitutional: Denies: fever. EENTM: Denies: visual changes. Respiratory: Reports: short of breath. Cardiovascular: Denies: chest pain. GI: Reports: no symptoms. Genitourinary: Reports: no symptoms. Musculoskeletal: Reports: no symptoms. Skin: Reports: no symptoms. Neurological/Psychological: Reports: no symptoms. Hematologic/Endocrine: Reports: no symptoms. Immunologic/Allergic: Reports: no symptoms. Physical Exam Physical Exam General Appearance: well developed/nourished, alert, awake, anxious Head: atraumatic, normal appearance Eyes: Bilateral: normal appearance, PERRL, EOMI. Ears, Nose, Throat: normal pharynx, normal ENT inspection, hearing grossly normal Neck: normal inspection, supple, full range of motion Respiratory: decreased breath sounds, rhonchi, wheezing Cardiovascular: tachycardia, irregularly irregular Peripheral Pulses: 4+ radial (R), 4+ radial (L) Gastrointestinal: soft, non-tender Back: normal range of motion Extremities: pedal edema Neurologic/Psych: awake, alert, oriented x 3 Skin: intact, normal color, warm/dry Core Measures ACS in differential dx? No CVA/TIA Diagnosis: No Sepsis Present: No Sepsis Focused Exam Completed? No Progress Differential Diagnoses I considered the following diagnoses in my evaluation of the patient: [CHF, pulmonary embolism, pneumonia, COPD, idiopathic pulmonary fibrosis, brochiolitis obliterans] Plan of Care: Orders Procedure Date/time Status Heart Healthy Diet 01/[address] in observation 01/15 1035 Active Patient Data 01/15 1032 Active ED Holding Orders 01/15 1031 Active Vital Signs 01/15 1031 Active Code Status 01/15 1031 Active BLOOD CULTURE 01/15 1023 Active Saline Lock 01/15 0849 Active TROPONIN LEVEL 01/15 0849 Complete D-DIMER 01/15 0849 Complete COMPREHENSIVE METABOLIC PANEL 01/15 0849 Complete CBC WITHOUT DIFFERENTIAL 01/15 0849 Complete B-TYPE NATRIURETIC PEP (BNP) 01/15 0849 Complete EKG 01/15 0833 Active Laboratory Tests 01/15/18 0850: Anion Gap 11, Estimated GFR > 60, BUN/Creatinine Ratio 25.0, Glucose 144 H, Calcium 8.4, Total Bilirubin 0.4, AST 16, ALT 26, Alkaline Phosphatase 48, Troponin I < 0.01, Qpp-P-Iwkeupvrwfe Pept 1800 H, Total Protein 6.8, Albumin 3.9, Globulin 2.9, Albumin/Globulin Ratio 1.3, D-Dimer High Sensitivty < 200, CBC w Diff NO MAN DIFF REQ, RBC 4.67, MCV 67.6 L, MCH 21.3 L, MCHC 31.5 L, RDW 15.9 H, MPV 8.6, Gran % 73.6, Lymphocytes % 18.5 L, Monocytes % 7.0, Eosinophils % 0.5, Basophils % 0.4, Absolute Granulocytes 5.1, Absolute Lymphocytes 1.3, Absolute Monocytes 0.5, Absolute Eosinophils 0, Absolute Basophils 0 Microbiology 01/15 1023 BLOOD: Blood Culture - ORD 01/15 1023 BLOOD: Blood Culture - ORD Initial ED EKG: AFIB (at 106) Prior EKG: unchanged Departure Departure Disposition: STILL A PATIENT Condition: Stable Clinical Impression Primary Impression: Pneumonia Referrals: Dani GRIMES,Sonal (PCP/Family) Departure Forms: Customer Survey General Discharge Information Comments Spoke with Emanuel from case management regarding decision to place patient in observation Observation Note Spoke With: Joe GRIMES,Isabel Physician Advisor Notified: YO WHITTEN DO Place Patient In: Non-ED OBS Care Area Rationale for Observation: My rational for observation is as follows [the patient needs observation for IV antibiotics, oxygen, consider infectious disease consultation]. Critical Care Note Critical Care Note Critical Care Time: non-applicable
[2018-01-15 09:13] LABS: ABSOLUTE BASOPHIL COUNT 0 /CUMM (0.0-0.2); ABSOLUTE EOSINOPHIL COUNT 0 /CUMM (0.0-0.7); ABSOLUTE GRANULOCYTE CT 5.1 /CUMM (1.4-6.5); ABSOLUTE LYMPH COUNT 1.3 /CUMM (1.2-3.4); ABSOLUTE MONOCYTE COUNT 0.5 /CUMM (0.10-0.60); BASOPHIL % 0.4 % (0.0-2.0); EOSINOPHIL % 0.5 % (0-5); GRANULOCYTE % 73.6 % (42.2-75.2); HEMATOCRIT 31.5 % (37-47); MEAN CORPUSCULAR HGB 21.3 PG (27.0-31.0); MEAN CORPUSCULAR HGB CONC 31.5 G/DL (33.0-37.0); MEAN CORPUSCULAR VOLUME 67.6 FL (81.0-99.0); MEAN PLATELET VOLUME 8.6 FL (7.4-10.4); PLATELET COUNT 206 /CUMM (130-400); RBC DISTRIBUTION WIDTH 15.9 % (11.5-14.5); RED BLOOD CELL CT 4.67 /CUMM (4.20-5.40)
--- NOTE | 2018-01-15 10:06 | RADIOLOGY REPORT ---
EXAMINATION: XR PORTABLE CHEST CLINICAL INFORMATION: Shortness of breath COMPARISON: Chest CT 01/06/2018 and chest x-ray 01/04/2018. TECHNIQUE: Portable frontal view of the chest was obtained. FINDINGS: An area of chronic consolidation and bronchiectasis involving the medial aspect of the right lower lobe is better demonstrated on the recent CT study. There is new patchy airspace opacity at the right lung base that may reflect pneumonia. Lungs are otherwise clear. No pneumothorax and no pleural effusion. Cardiac silhouette enlarged and unchanged. No acute osseous findings. IMPRESSION: There is new patchy airspace opacity at the right lung base concerning for developing pneumonia.
--- NOTE | 2018-01-15 10:36 | History & Physical ---
Rosa M Hernandez 01/15/18 1035: General Information and HPI MD Statement: I have seen and personally examined SANTIAGO NDIAYE and documented this H&P. The patient is a 72 year old F who presented with a patient stated chief complaint of [shortness of breath and cough]. History of Present Illness: Mrs. Santiago Ndiaye is an active community dweller 72-year-old female presented to the ED complaining of shortness of breath. She has a past medical history significant for With a history of obesity, suspected obstructive sleep apnea, asthma, previous bronchitis, previous pneumonia, hypertension, dyslipidemia, diabetes mellitus, carotid artery disease, concentric LVH, HFpEF, mitral regurgitation, pulmonary hypertension, permanent atrial fibrillation on anticoagulation, s/p ABILIO/electrical CV 11/25/2009, and hyperthyroidism, toxic nodular goiter, multifocal papillary carcinoma, s/p thyroidectomy/ parathyroidectomy of one gland at [facility] ~3 months, and recent admission at 03/2018-01/06/2018. H&P reports after discharge from the hospital she was at her normal state of health until 23 days ago when she developed dyspnea prominently on exertion; patient reports orthopnea subjective feeling of gaining weight, increase in abdominal girth, right upper quadrant vague discomfort. She denies PND, increasing swelling in her legs, chest pain, palpitation, diaphoresis, GI symptoms, cough, fever. She has been compliant with her medication, no recent change in her medication dose, no change in diets. Of note, during her last hospitalization at [facility] for hypercalcemia patient's Lasix dose was decreased from 80 mg by mouth daily to 40 mg by mouth. No recent travel and no sick contacts. ED In the emergency room patient was found to be hypoxic and in moderate to severe distress and started on 3 L of oxygen. After receiving informed grounds of TRC oxygen demand decreased to 2 L. Allergies/Medications Allergies: Coded Allergies: NO KNOWN ALLERGIES (06/13/14) Home Med list Albuterol Sulfate (Proair Hfa) 90 MCG HFA.AER.AD 2 PUF INH Q4H PRN SOB/ WHEEZING (Reported) Calcitriol 0.5 MCG CAPSULE 1 CAP PO DAILY SUPPLEMENT (Reported) Calcium Carbonate (Oysco-500) 500 MG CALCIUM (1,250 MG) TABLET 1 TAB PO 4XDAILY SUPPLEMENT (Reported) Diltiazem HCl (Diltiazem 24HR Cd) 300 MG CAP.ER.24H 1 TAB PO DAILY HEART RATE . Ferrous Sulfate 324 MG (65 MG IRON) TABLET.DR 1 TAB PO DAILY SUPPLEMENT ( Reported) Fluticasone Propionate (Flovent Hfa) 220 MCG AER.W.ADAP 1 PUFF INH BID RESPIRATORY (Reported) Furosemide (Lasix) 80 MG TABLET 0.5 TAB PO DAILY DIURETIC (Reported) Levothyroxine Sodium 150 MCG TABLET 1 TAB PO DAILY THYROID (Reported) Losartan Potassium 100 MG TABLET 1 TAB PO DAILY HEART/BP (Reported) Magnesium Oxide (Magnesium) 400 MG CAPSULE 1 CAP PO BID SUPPLEMENT (Reported) Metformin HCl (Glucophage) 850 MG TABLET 1 TAB PO BID DM (Reported) Metoprolol Tartrate (Lopressor) 50 MG TABLET 1.5 TAB PO QPM HEART/BP ( Reported) Metoprolol Tartrate (Lopressor) 100 MG TABLET 1 TAB PO QAM HEART/BP (Reported ) Potassium Chloride 20 MEQ TAB.ER.PRT 1 TAB PO DAILY SUPPLEMENT (Reported) Rivaroxaban (Xarelto) 20 MG TABLET 1 TAB PO DAILY BLOOD THINNER (Reported) with food Rosuvastatin Calcium (Crestor) 20 MG TABLET 1 TAB PO QPM CHOLESTEROL ( Reported) Spironolactone 25 MG TABLET 1 TAB PO DAILY DIURETIC (Reported) Tramadol HCl 50 MG TABLET 0.5-1 TAB PO Q6P PRN PAIN (Reported) Compliance With Home Meds: GOOD Past History Travel History Traveled to [place] past 21 day No Medical History Neurological: NONE EENT: NONE Cardiovascular: AFIB, hypertension, hyperlipidemia Respiratory: bronchitis, pulmonary hypertension Gastrointestinal: NONE Hepatic: NONE Renal: NONE Musculoskeletal: NONE Psychiatric: NONE Endocrine: diabetes, hyperthyroidism Blood Disorders: NONE Cancer(s): NONE PLASTIC FRAME INSERTER/Reproductive: NONE History of MRSA: No History of VRE: No History of CDIFF: No Surgical History Surgical History: thyroidectomy Past Family/Social History Family History Relations & Conditions if any FATHER FH: hypertension MOTHER FH: hypertension Psychosocial History Where do you live? Home Who Do You Live With? child Services at Home: None Primary Language: [facility] Smoking Status: Never Smoked Functional Ability ADLs Independent: dressing, eating, toileting, bathing. Ambulation: independent IADLs Independent: shopping, housework, finances, food prep, telephone, transportation , medication admin. Review of Systems Review of Systems Constitutional: Reports: no symptoms. EENTM: Reports: no symptoms. Cardiovascular: Reports: see HPI, edema, orthopena, peripheral edema. Denies: palpitations, syncope. Respiratory: Reports: orthopnea, short of breath. Denies: cough, hemoptysis, sputum production, stridor, wheezing. Genitourinary: Reports: no symptoms. Musculoskeletal: Reports: no symptoms. Skin: Reports: no symptoms. All Other Systems: Reviewed and Negative Exam & Diagnostic Data Last 24 Hrs of Vital Signs/I&O Vital Signs Date Time Temp Pulse Resp B/P B/P Pulse O2 O2 Flow FiO2 Mean Ox Delivery Rate 01/15 1217 106 18 140/80 01/15 1216 106 19 140/80 01/15 1214 97.7 114 20 139/80 94 Nasal 2.0L Cannula 01/15 1000 99.0 110 22 135/77 94 Nasal 2.0L Cannula 01/15 0943 96 Nasal 2.0L Cannula 01/15 0921 99.0 100 20 138/72 95 Nasal 3.0L Cannula 01/15 0900 95 Nasal 3.0L Cannula 01/15 0837 98.6 106 22 136/85 92 Nasal 3.0L Cannula Intake & Output 01/15 1600 01/15 0800 01/15 0000 Intake Total 0 Output Total Balance 0 Intake, Oral 0 Patient 175 lb Weight Weight Reported by Patient Measurement Method Physical Exam General Appearance Alert, Oriented X3, Cooperative, Mild Distress Skin No Rashes HEENT Atraumatic, PERRLA, EOMI, Mucous Membr. moist/pink Neck I was not able to examine JVD Lungs bibasilar crackles more on the right side Abdomen Soft, mild right upper quadrant tenderness Neurological Normal Speech Extremities 2+ pitting edema bilateral lower extremity up to the level of knee Vascular Normal Pulses Last 24 Hrs of Labs/Mateusz: Laboratory Tests 01/15/18 1206: Troponin I Pending 01/15/18 1105: pH 7.34 L, pCO2 60 *H, pO2 86, HCO3 31 H, ABG O2 Sat (Measured) 94.0 L, Carboxyhemoglobin 0.4 L, O2 Concentration % 2L, O2 Delivery Method N/C, Phlebotomy Draw Site RIGHT RADIAL 01/15/18 0850: Anion Gap 11, Estimated GFR > 60, BUN/Creatinine Ratio 25.0, Glucose 144 H, Calcium 8.4, Total Bilirubin 0.4, AST 16, ALT 26, Alkaline Phosphatase 48, Troponin I < 0.01, Ucf-V-Plblcttppcl Pept 1800 H, Total Protein 6.8, Albumin 3.9, Globulin 2.9, Albumin/Globulin Ratio 1.3, D-Dimer High Sensitivty < 200, CBC w Diff NO MAN DIFF REQ, RBC 4.67, MCV 67.6 L, MCH 21.3 L, MCHC 31.5 L, RDW 15.9 H, MPV 8.6, Gran % 73.6, Lymphocytes % 18.5 L, Monocytes % 7.0, Eosinophils % 0.5, Basophils % 0.4, Absolute Granulocytes 5.1, Absolute Lymphocytes 1.3, Absolute Monocytes 0.5, Absolute Eosinophils 0, Absolute Basophils 0 Microbiology 01/15 1100 BLOOD: Blood Culture - RECD 01/15 1050 BLOOD: Blood Culture - RECD Diagnostic Data EKG Results Was not available for me to interpret CXR Results I reviewed the chest x-ray personally and compared to the previous images from January 04 Certainly image from today showed bilateral pulmonary vascular congestion ( fluffy appearance) no evidence of pleural effusion The finding on the right lower lobe which was hinted to be a developing pneumonia is a chronic finding in the previous CT scans Assessment/Plan Assessment: This is a 72-year-old woman with multiple comorbidities and recent admission to [facility] and is for acute hypoxic respiratory failure to telemetry floor. List of differential diagnosis #1 decompensated diastolic heart failure secondary to subtotal PT dose of Lasix, ACS, or maybe a viral/bacterial pneumonia. On one had she does not haev any evidence of infection (no fever no leukocytosis no bandemia) and on the other hand, she has symptoms ( see the HPI and PH/EX) and lab findings that increases the pretest probability of CHF decom due to maybe: Lasix underdose or maybe hypothyroidism that she had ( recent TSH was 9 and L-thyroxine was increased), ACS. Plan #1 admit to telemetry for continuous heart monitoring #1' R/O ACS- first set of throponin was negative #2 daily diuresis plates IV Lasix 40 mg #3 heart healthy diet/diabetes with fluid restriction 6327-6331 mL per day #4 daily weights and restricted in and outs; targets negative fluid balance #5 check chemistry on a daily basis #6 decrease metoprolol tartrate to 50 mg by mouth daily #7 continue diltiazem XL 300 mg once a day #8 continue magnesium oxide 400 mg once a day #9 continue Xarelto 20 mg by mouth daily #10 TRC Neb ltjss-jzj-figmi as needed #11 albuterol every 4 as needed #12 Flovent 220 one puff twice a day #13 NovoLog sliding scale 3 times a day before meals #14 continue statin at home dose #[address] scan of the chest- effectively comment on pneumonia ( right lower lobe infiltration status) #16 Cardiology consult Full code On Xarelto Pain med as parthway for mild As Ranked By This Provider Problem List: 1. Atrial fibrillation with RVR 2. Heart failure, diastolic, with acute decompensation Core Measures/Misc (04/11) Acute Coronary Syndrome ACS Diagnosis: No Congestive Heart Failure Congestive Heart Failure Diagnosis Yes Last Known EF % 60 Cerebrovascular Accident CVA/TIA Diagnosis: No VTE (View Protocol) VTE Risk Factors CHF or Resp Failure No Mechanical VTE Prophylaxis d/t N/A MechProphylax Ordered No VTE Pharm Prophylaxis d/t NA PharmProphylax ordered Sepsis (View protocol) Sepsis Present: No If YES complete Sepsis Event Note If YES complete Sepsis Event Note Resident Review Statement Resident Statement: examined this patient, discussed with manager of internal, agreed with manager of internal, discussed with family, reviewed EMR data (avail), discussed with nursing , discussed with case mgmt, reviewed images, amended to note [facility] 1457: Core Measures/Misc (04/11) Sepsis (View protocol) If YES complete Sepsis Event Note If YES complete Sepsis Event Note Attending MD Review Statement Attending Statement Attending MD Statement: examined this patient, discuss w/resident/PA/SHIRT CREASER, agreed w/resident/PA/SHIRT CREASER, discussed with family, reviewed EMR data (avail), discussed with nursing, discussed with case mgmt, reviewed images, amended to note Attending Assessment/Plan: 72 y/o F with pmh sig for obesity, suspected obstructive sleep apnea, asthma, previous bronchitis, previous pneumonia, hypertension, dyslipidemia, diabetes mellitus, carotid artery disease, concentric LVH, HFpEF, mitral regurgitation, pulmonary hypertension, permanent atrial fibrillation on anticoagulation, s/p ABILIO/electrical CV 11/25/2009, and hyperthyroidism, toxic nodular goiter, multifocal papillary carcinoma, s/p thyroidectomy/ parathyroidectomy of one gland at [facility] ~3 months, and recent admission at 01/01/2018-01/06/2018 with hypocalcemia/hypomagnesemia and Rapid Afib. Presented with sob and dyspnea on exertion that started 2 days ago but worse last night. Patient does not speak Italian and has a family member who is translating. There is no history of any fevers, chills, productive cough or any sick exposure. There is a history of orthopnea. Patient denies any chest pain or any dizziness. Off note her diuretic dose was decreased on previous discharge. She was on Lasix 80 mg which was decreased to Lasix 40 mg secondary to these electrolyte abnormalities. Off note her recent echo which was done during previous admission shows ejection fraction. Patient denies any weight gain. Vital Signs Date Time Temp Pulse Resp B/P B/P Pulse O2 O2 Flow FiO2 Mean Ox Delivery Rate 01/15 1422 94 Nasal 2.0L Cannula 01/15 1422 94 Nasal 2.0L Cannula 01/15 1410 97.9 112 20 138/90 95 Nasal 2.0L Cannula 01/15 1334 98.0 102 18 129/82 96 Nasal 2.0L Cannula 01/15 1217 106 18 140/80 01/15 1216 106 19 140/80 01/15 1214 97.7 114 20 139/80 94 Nasal 2.0L Cannula 01/15 1000 99.0 110 22 135/77 94 Nasal 2.0L Cannula 01/15 0943 96 Nasal 2.0L Cannula 01/15 0921 99.0 100 20 138/72 95 Nasal 3.0L Cannula 01/15 0900 95 Nasal 3.0L Cannula 01/15 0837 98.6 106 22 136/85 92 Nasal 3.0L Cannula On exam; aox3, nad. cv; s1,s2 irregular. resp; b/l basal crackles. abd; soft, nt, bs+ ext; trace edema. Laboratory Tests 01/15 01/15 01/15 1206 1105 0850 Blood Gas pH (7.35 - 7.45 PH) 7.34 L pCO2 (35 - 45 TORR) 60 *H pO2 (80 - 100 TORR) 86 HCO3 (21 - 28 MEQ/L) 31 H ABG O2 Sat (Measured) (>96.0 %) 94.0 L Carboxyhemoglobin (1.5 - 5.0 %) 0.4 L O2 Concentration % 2L O2 Delivery Method N/C Chemistry Sodium (137 - 145 mmol/L) 140 Potassium (3.5 - 5.1 mmol/L) 4.9 Chloride (98 - 107 mmol/L) 97 L Carbon Dioxide (22 - 30 mmol/L) 32 H Anion Gap (5 - 16) 11 BUN (7 - 17 mg/dL) 15 Creatinine (0.5 - 1.0 mg/dL) 0.6 Estimated GFR (>60 ml/min) > 60 BUN/Creatinine Ratio (7 - 25 %) 25.0 Glucose (65 - 99 mg/dL) 144 H Calcium (8.4 - 10.2 mg/dL) 8.4 Total Bilirubin (0.2 - 1.3 mg/dL) 0.4 AST (14 - 36 U/L) 16 ALT (9 - 52 U/L) 26 Alkaline Phosphatase (<127 U/L) 48 Troponin I (< 0.11 ng/ml) < 0.01 < 0.01 Dfc-Q-Ltlecewflta Pept (<125 pg/mL) 1800 H Total Protein (6.3 - 8.2 g/dL) 6.8 Albumin (3.5 - 5.0 g/dL) 3.9 Globulin (1.9 - 4.2 gm/dL) 2.9 Albumin/Globulin Ratio (1.1 - 2.2 %) 1.3 Coagulation D-Dimer High Sensitivty (0 - 243 ng/ml) < 200 Hematology CBC w Diff NO MAN DIFF REQ WBC (4.8 - 10.8 /CUMM) 7.0 RBC (4.20 - 5.40 /CUMM) 4.67 Hgb (12.0 - 16.0 G/DL) 9.9 L Hct (37 - 47 %) 31.5 L MCV (81.0 - 99.0 FL) 67.6 L MCH (27.0 - 31.0 PG) 21.3 L MCHC (33.0 - 37.0 G/DL) 31.5 L RDW (11.5 - 14.5 %) 15.9 H Plt Count (130 - 400 /CUMM) 206 MPV (7.4 - 10.4 FL) 8.6 Gran % (42.2 - 75.2 %) 73.6 Lymphocytes % (20.5 - 51.1 %) 18.5 L Monocytes % (1.7 - 9.3 %) 7.0 Eosinophils % (0 - 5 %) 0.5 Basophils % (0.0 - 2.0 %) 0.4 Absolute Granulocytes (1.4 - 6.5 /CUMM) 5.1 Absolute Lymphocytes (1.2 - 3.4 /CUMM) 1.3 Absolute Monocytes (0.10 - 0.60 /CUMM) 0.5 Absolute Eosinophils (0.0 - 0.7 /CUMM) 0 Absolute Basophils (0.0 - 0.2 /CUMM) 0 Miscellaneous Phlebotomy Draw Site RIGHT RADIAL EKG shows atrial fibrillation with no acute change. CXR: IMPRESSION: There is new patchy airspace opacity at the right lung base concerning for developing pneumonia. A/P; 72 y/o F with pmh sig for obesity, suspected obstructive sleep apnea, asthma, previous bronchitis, previous pneumonia, hypertension, dyslipidemia, diabetes mellitus, carotid artery disease, concentric LVH, HFpEF, mitral regurgitation, pulmonary hypertension, permanent atrial fibrillation on anticoagulation, s/p ABILIO/electrical CV 11/25/2009, and hyperthyroidism, toxic nodular goiter, multifocal papillary carcinoma, s/p thyroidectomy/ parathyroidectomy of one gland at [facility] ~3 months, and recent admission at 03/2018-01/06/2018 with hypocalcemia/hypomagnesemia and Rapid Afib. Patient admitted this time with acute shortness of breath likely secondary to acute CHF exacerbation. She also has this history off obstructive sleep apnea and has hypercarbia on the blood gas. Her pH is compensated At this point patient will be admitted to telemetry. Please trend troponins. Please start him on IV diuretics and monitor strict intake and output as well as daily weights. Cardiology will be consulted. Will monitor her BP and creatinine carefully while she is on IV diuresis. Please also consult pulmonology with extensive lung history as well as hypercarbia. Will also obtain CT chest without contrast. Please continue her other cardiac medications including calcium channel yoli, Xarelto and PETTY inhibitor. Patient also diabetic and should be getting Accu- Cheks with sliding scale insulin. DVT prophylaxis: Patient on Xarelto. Patient is a full code.
[2018-01-15] MEDS ORDERED: OYSCO-500500 MG PO (12:42)
[2018-01-15] MEDS ORDERED: SPIRONOLACTONE25 M1 PO (12:43)
[2018-01-15] MEDS ORDERED: LOPRESSOR100 M1 PO (12:44)
[2018-01-15] MEDS ORDERED: TRAMADOL HCL50 M1 PO (12:45)
[2018-01-15] MEDS ORDERED: CALCITRIOL0.5 MC1 PO (12:45)
[2018-01-15] MEDS ORDERED: LEVOTHYROXINE150 MCG PO (12:48)
[2018-01-15] MEDS ORDERED: LASIX80 M1 PO (12:55)
[2018-01-15 14:10] VITALS: BP 138/90
--- NOTE | 2018-01-15 15:05 | CT SCAN REPORT ---
EXAMINATION: CT CHEST WITHOUT CONTRAST CLINICAL INFORMATION: Hypoxia. Evaluate for CHF versus pneumonia. COMPARISON: Previous chest x-rays most recent from earlier the same day and previous chest CT 01/06/2019 and 10/15/2012.. TECHNIQUE: Multidetector volumetric CT imaging of the chest was done. Axial MIP volume rendering provided. Sagittal and coronal reformatted images were obtained. Exam is limited due to artifact from respiratory motion. DLP: 235 mGy-cm. FINDINGS: PSYCHOLOGY ASSOCIATE: Enlarged cardiac silhouette. LUNGS: There is chronic bronchiectasis and atelectasis in the medial paraspinal right lower lobe. There is evidence of mild more central right lower lobe airways disease with bronchial wall thickening. This is unchanged from previous exams. There is minimal subsegmental atelectasis or scarring in the posterior basal segment of the right lower lobe axial image 43 series 3 that is unchanged. Small pulmonary nodules are stable from previous exam. No evidence of pulmonary edema or acute pneumonia is seen. MEDIASTINUM: The heart is enlarged. There is no pericardial effusion. The thoracic aorta is normal in caliber. The pulmonary arteries are slightly prominent, main pulmonary artery measuring 3.1 cm similar to previous exam. There are no enlarged lymph nodes. PLEURA: There is no pleural effusion. No pleural mass or thickening. AXILLA: No chest wall mass or enlarged axillary lymph nodes are seen. UPPER ABDOMEN: There is fatty infiltration of the pancreas. There is a small peripheral calcification adjacent to the left lobe of the liver axial image 56 series 2 that is stable. Images through the upper abdomen are otherwise unremarkable. OSSEOUS STRUCTURES: There are degenerative changes of the spine. There is a lucent lesion in the manubrium that is stable. There are several small sclerotic lesions in the lower thoracic and upper lumbar spine that are stable and probably represent benign bone islands. IMPRESSION: No appreciable change from recent exam 01/06/2018. Chronic volume loss and bronchiectasis in the right lower lobe adjacent to the spine and evidence of more proximal chronic airways disease. No evidence of CHF or pneumonia. Stable small pulmonary nodules. Stable enlargement of the heart.
--- NOTE | 2018-01-15 19:37 | Cons- Cardiology ---
General Information and HPI Consulting Request Date of Consult: 01/15/18 Requested By: Isabel Diaz MD History of Present Illness: The patient is a 72-year-old female with history of chronic atrial fibrillation on Xarelto, thyroidectomy, hypertension, and chronic heart failure with preserved ejection fraction presenting with shortness of breath. She notes worsening shortness of breath over the past few days which is increased with activity. She also notes worsening orthopnea, weight gain, and increase in abdominal girth. She complains of vague discomfort in the right upper quadrant of the abdomen. No chest pain. No palpitations. No nausea or vomiting. No diaphoresis. No lightheadedness or dizziness. She was noted during her recent admission to have hypocalcemia and hypomagnesemia, and the Lasix dose was decreased from 80 mg to 40 mg per day. Allergies/Medications Allergies: Coded Allergies: NO KNOWN ALLERGIES (06/13/14) Home Med List: Albuterol Sulfate (Proair Hfa) 90 MCG HFA.AER.AD 2 PUF INH Q4H PRN SOB/ WHEEZING (Reported) Calcitriol 0.5 MCG CAPSULE 1 CAP PO DAILY SUPPLEMENT (Reported) Calcium Carbonate (Oysco-500) 500 MG CALCIUM (1,250 MG) TABLET 1 TAB PO 4XDAILY SUPPLEMENT (Reported) Diltiazem HCl (Diltiazem 24HR Cd) 300 MG CAP.ER.24H 1 TAB PO DAILY HEART RATE . Ferrous Sulfate 324 MG (65 MG IRON) TABLET.DR 1 TAB PO DAILY SUPPLEMENT ( Reported) Fluticasone Propionate (Flovent Hfa) 220 MCG AER.W.ADAP 1 PUFF INH BID RESPIRATORY (Reported) Furosemide (Lasix) 80 MG TABLET 0.5 TAB PO DAILY DIURETIC (Reported) Levothyroxine Sodium 150 MCG TABLET 1 TAB PO DAILY THYROID (Reported) Losartan Potassium 100 MG TABLET 1 TAB PO DAILY HEART/BP (Reported) Magnesium Oxide (Magnesium) 400 MG CAPSULE 1 CAP PO BID SUPPLEMENT (Reported) Metformin HCl (Glucophage) 850 MG TABLET 1 TAB PO BID DM (Reported) Metoprolol Tartrate (Lopressor) 50 MG TABLET 1.5 TAB PO QPM HEART/BP ( Reported) Metoprolol Tartrate (Lopressor) 100 MG TABLET 1 TAB PO QAM HEART/BP (Reported ) Potassium Chloride 20 MEQ TAB.ER.PRT 1 TAB PO DAILY SUPPLEMENT (Reported) Rivaroxaban (Xarelto) 20 MG TABLET 1 TAB PO DAILY BLOOD THINNER (Reported) with food Rosuvastatin Calcium (Crestor) 20 MG TABLET 1 TAB PO QPM CHOLESTEROL ( Reported) Spironolactone 25 MG TABLET 1 TAB PO DAILY DIURETIC (Reported) Tramadol HCl 50 MG TABLET 0.5-1 TAB PO Q6P PRN PAIN (Reported) Current Medications: Current Medications Sig/Diana Start time Last Medication Dose Route Stop Time Status Admin Acetaminophen 0 .STK-MED ONE 01/15 1330 DC PO Acetaminophen 650 MG Q6P PRN 01/15 1315 AC PO Albuterol Sulfate 2 PUF Q4H PRN 01/15 1130 AC INH Albuterol Sulfate 3 ML ONCE ONE 01/15 0900 DC 01/15 INH 01/15 0901 0856 Azithromycin 500 MG ONCE ONE 01/15 1045 DC Sodium Chloride 250 ML IV 01/15 1144 Ceftriaxone Sodium 0 .STK-MED ONE 01/15 1110 CAN .ROUTE Ceftriaxone Sodium 1,000 MG ONCE ONE 01/15 1045 DC IV 01/15 1046 Diltiazem HCl 300 MG DAILY 01/15 1128 AC 01/15 PO 1215 Ferrous Sulfate 325 MG BID 01/15 1128 AC 01/15 PO 1215 Fluticasone 2 PUF BID 01/15 1129 AC Propionate INH Furosemide 20 MG 7:30 AM, & 4:30 PM 01/15 1630 DC IV Furosemide 40 MG DAILY 01/15 1213 AC 01/15 IV 1217 Furosemide 0 .STK-MED ONE 01/15 1144 DC IV Insulin Aspart 0 TIDAC 01/15 1700 AC SC Ipratropium [place] 2.5 ML ONCE ONE 01/15 0900 DC 01/15 INH 01/15 0901 0856 Levothyroxine Sodium 0.137 MG DAILY AC 01/16 0700 CAN PO Levothyroxine Sodium 0.15 MG DAILY AC 01/15 1308 AC PO Levothyroxine Sodium 0.137 MG DAILY 01/15 1129 DC PO 01/15 1130 Losartan Potassium 100 MG DAILY 01/15 1130 AC 01/15 PO 1216 Magnesium Oxide 400 MG BID 01/15 1130 AC 01/15 PO 1216 Metoprolol Succinate 50 MG DAILY 01/15 1133 AC 01/15 PO 1217 Senna/Docusate Sodium 1 TAB AT BEDTIME PRN 01/15 1315 AC PO Tramadol HCl 50 MG Q6P PRN 01/15 1330 AC PO Tramadol HCl 25 MG Q6P PRN 01/15 1315 AC PO Review of Systems Review of Systems: No hemoptysis. Hematemesis. No syncope. All other systems were reviewed, and were noted to be negative. 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 Home Who Do You Live With? child Services at Home: None Primary Language: [employer] Smoking Status: Never Smoked Functional Ability ADLs Independent: dressing, eating, toileting, bathing. Ambulation: independent IADLs Independent: shopping, housework, finances, food prep, telephone, transportation , medication admin. Exam & Diagnostic Data Vital Signs and I&O Vital Signs Date Time Temp Pulse Resp B/P B/P Pulse O2 O2 Flow FiO2 Mean Ox Delivery Rate 01/15 1621 95 Nasal 2.0L Cannula 01/15 1422 94 Nasal 2.0L Cannula 01/15 1422 94 Nasal 2.0L Cannula 01/15 1410 97.9 112 20 138/90 95 Nasal 2.0L Cannula 01/15 1334 98.0 102 18 129/82 96 Nasal 2.0L Cannula 01/15 1217 106 18 140/80 01/15 1216 106 19 140/80 01/15 1214 97.7 114 20 139/80 94 Nasal 2.0L Cannula 01/15 1000 99.0 110 22 135/77 94 Nasal 2.0L Cannula 01/15 0943 96 Nasal 2.0L Cannula 01/15 0921 99.0 100 20 138/72 95 Nasal 3.0L Cannula 01/15 0900 95 Nasal 3.0L Cannula 01/15 0837 98.6 106 22 136/85 92 Nasal 3.0L Cannula Intake & Output 01/15 1600 01/15 0800 01/15 0000 06/22 1600 01/14 0800 01/14 0000 Intake Total 0 Output Total Balance 0 Intake, Oral 0 Patient 188 lb Weight Weight Bed scale Measurement Method Physical Exam: Gen: The patient is in no acute distress HEENT: Normal nose, ears, and oropharynx. Pupils equal bilaterally. Conjunctiva normal. Neck: Supple with no JVD, no masses, and no thyromegaly Lungs: Clear to auscultation with normal respiratory effort Heart: Irregularly irregular, S1, S2, 1/6 systolic murmur. 2+ peripheral edema, 2+ pulses in the lower extremities bilaterally Abdomen: Soft, nontender, no masses. No hepatomegaly. No splenomegaly Extremities: No clubbing or cyanosis. Normal muscle strength in the upper and lower extremities Skin: Normal skin turgor with no skin ulcers or lesions noted. Neuro: Cranial nerves intact. Sensation intact Psych: Alert and oriented x 3 with appropriate affect Labs/Mateusz Results: Laboratory Tests 01/15 01/15 01/15 1536 1206 1105 Blood Gas pH (7.35 - 7.45 PH) 7.34 L pCO2 (35 - 45 TORR) 60 *H pO2 (80 - 100 TORR) 86 HCO3 (21 - 28 MEQ/L) 31 H ABG O2 Sat (Measured) (>96.0 %) 94.0 L Carboxyhemoglobin (1.5 - 5.0 %) 0.4 L O2 Concentration % 2L O2 Delivery Method N/C Chemistry Troponin I (< 0.11 ng/ml) < 0.01 < 0.01 Miscellaneous Phlebotomy Draw Site RIGHT RADIAL 01/15 0850 Chemistry Sodium (137 - 145 mmol/L) 140 Potassium (3.5 - 5.1 mmol/L) 4.9 Chloride (98 - 107 mmol/L) 97 L Carbon Dioxide (22 - 30 mmol/L) 32 H Anion Gap (5 - 16) 11 BUN (7 - 17 mg/dL) 15 Creatinine (0.5 - 1.0 mg/dL) 0.6 Estimated GFR (>60 ml/min) > 60 BUN/Creatinine Ratio (7 - 25 %) 25.0 Glucose (65 - 99 mg/dL) 144 H Calcium (8.4 - 10.2 mg/dL) 8.4 Total Bilirubin (0.2 - 1.3 mg/dL) 0.4 AST (14 - 36 U/L) 16 ALT (9 - 52 U/L) 26 Alkaline Phosphatase (<127 U/L) 48 Troponin I (< 0.11 ng/ml) < 0.01 Lhe-N-Nmghhrdheha Pept (<125 pg/mL) 1800 H Total Protein (6.3 - 8.2 g/dL) 6.8 Albumin (3.5 - 5.0 g/dL) 3.9 Globulin (1.9 - 4.2 gm/dL) 2.9 Albumin/Globulin Ratio (1.1 - 2.2 %) 1.3 Coagulation D-Dimer High Sensitivty (0 - 243 ng/ml) < 200 Hematology CBC w Diff NO MAN DIFF REQ WBC (4.8 - 10.8 /CUMM) 7.0 RBC (4.20 - 5.40 /CUMM) 4.67 Hgb (12.0 - 16.0 G/DL) 9.9 L Hct (37 - 47 %) 31.5 L MCV (81.0 - 99.0 FL) 67.6 L MCH (27.0 - 31.0 PG) 21.3 L MCHC (33.0 - 37.0 G/DL) 31.5 L RDW (11.5 - 14.5 %) 15.9 H Plt Count (130 - 400 /CUMM) 206 MPV (7.4 - 10.4 FL) 8.6 Gran % (42.2 - 75.2 %) 73.6 Lymphocytes % (20.5 - 51.1 %) 18.5 L Monocytes % (1.7 - 9.3 %) 7.0 Eosinophils % (0 - 5 %) 0.5 Basophils % (0.0 - 2.0 %) 0.4 Absolute Granulocytes (1.4 - 6.5 /CUMM) 5.1 Absolute Lymphocytes (1.2 - 3.4 /CUMM) 1.3 Absolute Monocytes (0.10 - 0.60 /CUMM) 0.5 Absolute Eosinophils (0.0 - 0.7 /CUMM) 0 Absolute Basophils (0.0 - 0.2 /CUMM) 0 Diagnostic Data EKG Results EKG tracing is independently reviewed, and reveals atrial fibrillation with ventricular response of 79 CXR Results There is new patchy airspace opacity at the right lung base concerning for developing pneumonia. Other Results CT scan of the chest: No appreciable change from recent exam 01/06/2018. Chronic volume loss and bronchiectasis in the right lower lobe adjacent to the spine and evidence of more proximal chronic airways disease. No evidence of CHF or pneumonia. Stable small pulmonary nodules. Stable enlargement of the heart. Echocardiogram 01/03/18: Technically difficult study. Left ventricular cavity size normal. Left ventricular wall thickness at upper limits of normal. No obvious regional wall motion abnormalities. Left ventricular ejection fraction is estimated at 55 %. Normal right ventricular size and function. Mild right atrial dilatation. Moderate left atrial dilatation. Moderate mitral regurgitation. Ynhz-se-eucrufvz tricuspid regurgitation. Unable to estimate the right ventricular systolic pressure. Assessment/Plan Assessment/Plan The patient is a 72-year-old female with history of atrial fibrillation, pulmonary hypertension, recent hypocalceima presenting with acute on chronic HFpEF. Recommendations: * Lasix 40 mg IV every 12 hours * Monitor input and output with daily weights * Check basic metabolic profile, calcium, and magnesium level in the morning * Continue anticoagulation with Xarelto * Continue other cardiac medications Consult Acknowledgment - Thank you for your consult request.
[2018-01-15 21:46] VITALS: BP 126/72
[2018-01-16 06:30] VITALS: BP 128/70
--- NOTE | 2018-01-16 08:29 | PN- Housestaff ---
Jada GRIMES,[place] 01/16/18 0829: Subjective Follow-up For: Baldomero candelario with RVR Acute decompensation of diastolic heart failure Tele-Events Since Last Visit: Baldomero candelario, [id number], QRS 0.1, no overnight events Subjective: The patient was seen and examined, denies any complaints including shortness of breath, chest pain, nausea, vomiting or diarrhea. Saturating well at 2 L nasal oxygen. Patient desaturated to 80s overnight when her oxygen accidentally slipped off Review of Systems Constitutional: Reports: see HPI. Objective Last 24 Hrs of Vital Signs/I&O Vital Signs Date Time Temp Pulse Resp B/P B/P Pulse O2 O2 Flow FiO2 Mean Ox Delivery Rate 01/16 0856 130/60 01/16 0856 130/60 01/16 0800 96 Nasal 2.0L Cannula 01/16 0630 98.6 90 20 128/70 93 01/16 0000 Room Air 01/15 2146 98.3 70 126/72 92 Room Air 01/15 1621 95 Nasal 2.0L Cannula 01/15 1422 94 Nasal 2.0L Cannula 01/15 1422 94 Nasal 2.0L Cannula 01/15 1410 97.9 112 20 138/90 95 Nasal 2.0L Cannula 01/15 1334 98.0 102 18 129/82 96 Nasal 2.0L Cannula 01/15 1217 106 18 140/80 01/15 1216 106 19 140/80 01/15 1214 97.7 114 20 139/80 94 Nasal 2.0L Cannula 01/15 1000 99.0 110 22 135/77 94 Nasal 2.0L Cannula Intake & Output 01/16 1600 01/16 0800 01/16 0000 Intake Total 100 240 Output Total 425 525 Balance -325 -285 Intake, Oral 100 240 Output, Urine 425 525 Patient 177 lb Weight Weight Bed scale Measurement Method Physical Exam General Appearance: Alert, Oriented X3, Cooperative, No Acute Distress HEENT: Atraumatic, PERRLA, EOMI, Mucous Membr. moist/pink Cardiovascular: Normal S1, Normal S2 Lungs: Clear to Auscultation Abdomen: Normal Bowel Sounds, Soft, No Tenderness Neurological: Normal Speech, Strength at 5/5 X4 Ext, Normal Tone, Sensation Intact, Cranial Nerves 3-12 NL Extremities: No Clubbing, No Cyanosis, No Edema Assessment/Plan Assessment: This is a 72-year-old woman with multiple comorbidities and recent admission to [facility] and is for acute hypoxic respiratory failure to telemetry floor. Problem list : -Acute decompensated diastolic heart failure likely secondary to suboptimal dose of Lasix -A. fib on Xarelto -Chronic medical conditions including hypothyroidism -Right lower lobe bronchiectasis -Pulmonary nodules Plan Continue to monitor on telemetry Continuous telemetry monitoring Serial tropes and EKG ruled out ACS Continue Lasix IV 40 mg twice daily Continue Xarelto 20 mg daily Continue home meds Strict I's and O's Daily weights Vitals every shift Daily monitoring of BP while on Lasix decrease metoprolol tartrate to 50 mg by mouth daily continue diltiazem XL 300 mg once a day continue magnesium oxide 400 mg once a day TRC Neb otlzx-jbn-hpswy as needed albuterol every 4 as needed Flovent 220 one puff twice a day NovoLog sliding scale 3 times a day before meals continue statin at home dose CT chest showed no significant difference from the previous one on 01/06, (in the right lower lobe, no evidence of pneumonia, stable small pulmonary nodules Cardiology recommendation appreciated Full code On Xarelto Pain med as parthway for mild Problem List: 1. Heart failure, diastolic, with acute decompensation Pain Ratin Pain Location: N/A Pain Goal: Remain pain free Pain Plan: PATHWAY Tomorrow's Labs & Rationales: CBC BEP Joe GRIMES,[facility] 01/16/18 1019: Attending MD Review Statement Attending Statement Attending MD Statement: examined this patient, discuss w/resident/PA/CONSUMER CREDIT COUNSELOR, agreed w/resident/PA/CONSUMER CREDIT COUNSELOR, discussed with family, reviewed EMR data (avail), discussed with nursing, reviewed images, amended to note Attending Assessment/Plan: Patient seen and examined, overall doing better today. Says that breathing is improved. Still requiring 2 L of oxygen. Patient has history of A. fib and she remains in A. fib on potline monitor. Vital Signs Date Time Temp Pulse Resp B/P B/P Pulse O2 O2 Flow FiO2 Mean Ox Delivery Rate 01/16 0856 130/60 01/16 0856 130/60 01/16 0800 96 Nasal 2.0L Cannula 01/16 0630 98.6 90 20 128/70 93 01/16 0000 Room Air 01/15 2146 98.3 70 126/72 92 Room Air 01/15 1621 95 Nasal 2.0L Cannula 01/15 1422 94 Nasal 2.0L Cannula 01/15 1422 94 Nasal 2.0L Cannula 01/15 1410 97.9 112 20 138/90 95 Nasal 2.0L Cannula 01/15 1334 98.0 102 18 129/82 96 Nasal 2.0L Cannula 01/15 1217 106 18 140/80 01/15 1216 106 19 140/80 01/15 1214 97.7 114 20 139/80 94 Nasal 2.0L Cannula on exam; aox3, nad. cv; s1,s2, irregular. resp; decreased bs at bases. abd; soft, nt, bs+ ext; no edema Laboratory Tests 01/16 01/15 01/15 01/15 0735 1536 1206 1105 Blood Gas pH (7.35 - 7.45 PH) 7.34 L pCO2 (35 - 45 TORR) 60 *H pO2 (80 - 100 TORR) 86 HCO3 (21 - 28 MEQ/L) 31 H ABG O2 Sat (Measured) (>96.0 %) 94.0 L Carboxyhemoglobin (1.5 - 5.0 %) 0.4 L O2 Concentration % 2L O2 Delivery Method N/C Chemistry Sodium (137 - 145 mmol/L) 139 Potassium (3.5 - 5.1 mmol/L) 5.0 Chloride (98 - 107 mmol/L) 89 L Carbon Dioxide (22 - 30 mmol/L) 36 H Anion Gap (5 - 16) 14 BUN (7 - 17 mg/dL) 17 Creatinine (0.5 - 1.0 mg/dL) 0.7 Estimated GFR (>60 ml/min) > 60 BUN/Creatinine Ratio (7 - 25 %) 24.3 Calcium (8.4 - 10.2 mg/dL) 8.6 Magnesium (1.6 - 2.3 mg/dL) 1.4 L Troponin I (< 0.11 ng/ml) < 0.01 < 0.01 Miscellaneous Phlebotomy Draw Site RIGHT RADIAL A/P; 72 y/o F with pmh sig for obesity, suspected obstructive sleep apnea, asthma, previous bronchitis, previous pneumonia, hypertension, dyslipidemia, diabetes mellitus, carotid artery disease, concentric LVH, HFpEF, mitral regurgitation, pulmonary hypertension, permanent atrial fibrillation on anticoagulation, s/p ABILIO/electrical CV 11/25/2009, and hyperthyroidism, toxic nodular goiter, multifocal papillary carcinoma, s/p thyroidectomy/ parathyroidectomy of one gland at [facility] ~3 months, and recent admission at 03/2018-01/06/2018 with hypocalcemia/hypomagnesemia and Rapid Afib. Patient admitted this time with acute shortness of breath likely secondary to acute diastolic CHF exacerbation. She also has this history off obstructive sleep apnea and has hypercarbia on the blood gas. Patient currently on IV diuresis. We'll continue to monitor strict intake and output, daily weights. We will continue to monitor her BEP. Appreciate cardiology input. If patient remains hypoxic and does not show more signs of improvement then please call pulmonology consult in the morning. Please replete her magnesium aggressively with IV magnesium continue the rest of the cardiac medications. Patient on Xarelto for DVT prophylaxis. Discussed with her son over the phone.
--- NOTE | 2018-01-16 10:30 | PN- Cardiology ---
Subjective Subjective: Shortness of breath is improving. No chest pain there are no palpitations. No diaphoresis. No lightheadedness or dizziness. No nausea or vomiting. Objective Vital Signs and I&Os Vital Signs Date Time Temp Pulse Resp B/P B/P Pulse O2 O2 Flow FiO2 Mean Ox Delivery Rate 01/16 0856 130/60 01/16 0856 130/60 01/16 0800 96 Nasal 2.0L Cannula 01/16 0630 98.6 90 20 128/70 93 01/16 0000 Room Air 01/15 2146 98.3 70 126/72 92 Room Air 01/15 1621 95 Nasal 2.0L Cannula 01/15 1422 94 Nasal 2.0L Cannula 01/15 1422 94 Nasal 2.0L Cannula 01/15 1410 97.9 112 20 138/90 95 Nasal 2.0L Cannula 01/15 1334 98.0 102 18 129/82 96 Nasal 2.0L Cannula 01/15 1217 106 18 140/80 01/15 1216 106 19 140/80 01/15 1214 97.7 114 20 139/80 94 Nasal 2.0L Cannula Intake & Output 01/16 1600 01/16 0800 01/16 0000 01/15 1600 01/15 0800 01/15 0000 Intake Total 100 240 0 Output Total 425 525 Balance -325 -285 0 Intake, Oral 100 240 0 Output, Urine 425 525 Patient 177 lb 188 lb Weight Weight Bed scale Bed scale Measurement Method Physical Exam: Gen: The patient is in no acute distress HEENT: Normal nose, ears, and oropharynx. Pupils equal bilaterally. Conjunctiva normal. Neck: Supple with no JVD, no masses, and no thyromegaly Lungs: Clear to auscultation with normal respiratory effort Heart: Irregularly irregular, S1, S2, 1/6 systolic murmur. 2+ peripheral edema, 2+ pulses in the lower extremities bilaterally Abdomen: Soft, nontender, no masses. No hepatomegaly. No splenomegaly Extremities: No clubbing or cyanosis. Normal muscle strength in the upper and lower extremities Skin: Normal skin turgor with no skin ulcers or lesions noted. Neuro: Cranial nerves intact. Sensation intact Current Medications: Current Medications Sig/Diana Start time Last Medication Dose Route Stop Time Status Admin Acetaminophen 0 .STK-MED ONE 01/15 1330 DC PO Acetaminophen 650 MG Q6P PRN 01/15 1315 AC 01/15 PO 2041 Albuterol Sulfate 2 PUF Q4H PRN 01/15 1130 AC INH Azithromycin 500 MG ONCE ONE 01/15 1045 DC Sodium Chloride 250 ML IV 01/15 1144 Ceftriaxone Sodium 0 .STK-MED ONE 01/15 1110 CAN .ROUTE Ceftriaxone Sodium 1,000 MG ONCE ONE 01/15 1045 DC IV 01/15 1046 Diltiazem HCl 300 MG DAILY 01/15 1128 AC 01/16 PO 0856 Ferrous Sulfate 325 MG BID 01/15 1128 AC 01/16 PO 0856 Fluticasone 2 PUF BID 01/15 1129 AC 01/16 Propionate INH 0901 Furosemide 40 MG BID 01/16 0900 AC 01/16 IV 0857 Furosemide 40 MG ONCE ONE 01/15 2230 DC 01/15 IV 01/15 2231 223 Furosemide 20 MG 7:30 AM, & 4:30 PM 01/15 1630 DC IV Furosemide 40 MG DAILY 01/15 1213 DC 01/15 IV 1217 Furosemide 0 .STK-MED ONE 01/15 1144 DC IV Insulin Aspart 0 TIDAC 01/15 1700 AC SC Levothyroxine Sodium 0.137 MG DAILY AC 01/16 0700 CAN PO Levothyroxine Sodium 0.15 MG DAILY AC 01/15 1308 AC 01/16 PO 0533 Levothyroxine Sodium 0.137 MG DAILY 01/15 1129 DC PO 01/15 1130 Losartan Potassium 100 MG DAILY 01/15 1130 AC 01/16 PO 0856 Magnesium Oxide 400 MG ONE ONE 01/16 1000 DC PO 01/16 1001 Magnesium Oxide 400 MG BID 01/15 1130 AC 01/16 PO 0856 Metoprolol Succinate 50 MG DAILY 01/15 1133 AC 01/16 PO 0856 Rivaroxaban 20 MG DAILY 01/16 0900 DC PO Rivaroxaban 20 MG DAILY 01/15 2300 AC 01/16 PO 0856 Senna/Docusate Sodium 1 TAB AT BEDTIME PRN 01/15 1315 AC PO Tramadol HCl 50 MG Q6P PRN 01/15 1330 AC PO Tramadol HCl 25 MG Q6P PRN 01/15 1315 AC PO Results Last 48 Hrs of Labs/Mics: Laboratory Tests 01/16/18 0735: Anion Gap 14, Estimated GFR > 60, BUN/Creatinine Ratio 24.3, Calcium 8.6, Magnesium 1.4 L 01/15/18 1536: Troponin I < 0.01 01/15/18 1206: Troponin I < 0.01 01/15/18 1105: pH 7.34 L, pCO2 60 *H, pO2 86, HCO3 31 H, ABG O2 Sat (Measured) 94.0 L, Carboxyhemoglobin 0.4 L, O2 Concentration % 2L, O2 Delivery Method N/C, Phlebotomy Draw Site RIGHT RADIAL 01/15/18 0850: Anion Gap 11, Estimated GFR > 60, BUN/Creatinine Ratio 25.0, Glucose 144 H, Calcium 8.4, Total Bilirubin 0.4, AST 16, ALT 26, Alkaline Phosphatase 48, Troponin I < 0.01, [id number] Pept 1800 H, Total Protein 6.8, Albumin 3.9, Globulin 2.9, Albumin/Globulin Ratio 1.3, D-Dimer High Sensitivty < 200, CBC w Diff NO MAN DIFF REQ, RBC 4.67, MCV 67.6 L, MCH 21.3 L, MCHC 31.5 L, RDW 15.9 H, MPV 8.6, Gran % 73.6, Lymphocytes % 18.5 L, Monocytes % 7.0, Eosinophils % 0.5, Basophils % 0.4, Absolute Granulocytes 5.1, Absolute Lymphocytes 1.3, Absolute Monocytes 0.5, Absolute Eosinophils 0, Absolute Basophils 0 Assessment/Plan Assessment/Plan Assessment: 1. Atrial fibrillation 2. Pulmonary hypertension 3. Recent hypocalcemia 4. Acute on chronic HFpEF, likely precipitated by decrease in Lasix dose Plan: * Continue IV Lasix * Monitor input and output with daily weights * Continue Xarelto * Check basic metabolic profile in the morning Continue telemetry? Yes
[2018-01-16 14:00] VITALS: BP 118/60
[2018-01-16 22:04] VITALS: BP 126/84
[2018-01-17 06:49] VITALS: BP 120/80
--- NOTE | 2018-01-17 07:15 | PN- Housestaff ---
Angel GRIMES,Isha 01/17/18 0715: Subjective Follow-up For: Shortness of breath Tele-Events Since Last Visit: Atrial fibrillation with heart rate ranging in the 70s to 80s Subjective: Seen and examined. In no acute distress watching television. Reports she is not feeling well and reports being short of breath. Review of Systems Constitutional: Reports: see HPI. Objective Last 24 Hrs of Vital Signs/I&O Vital Signs Date Time Temp Pulse Resp B/P B/P Pulse O2 O2 Flow FiO2 Mean Ox Delivery Rate 01/17 0649 97.9 84 20 120/80 96 Nasal 2.0L Cannula 01/17 0000 94 Nasal 2.0L Cannula 01/16 2204 97.4 116 20 126/84 93 Nasal 2.0L Cannula 01/16 1600 96 Nasal 2.0L Cannula 01/16 1400 98.9 70 20 118/60 97 01/16 0856 130/60 01/16 0856 130/60 Intake & Output 01/17 1600 01/17 0800 01/17 0000 Intake Total 200 240 Output Total 850 700 Balance -650 -460 Intake, Oral 200 240 Output, Urine 850 700 Patient 179 lb Weight Weight Bed scale Measurement Method Physical Exam General Appearance: Alert Cardiovascular: irregular Lungs: crackles R lung base Abdomen: Soft, No Tenderness Neurological: Normal Speech Extremities: No Edema Current Medications: Current Medications Sig/Diana Start time Last Medication Dose Route Stop Time Status Admin Acetaminophen 650 MG Q6P PRN 01/15 1315 AC 01/15 PO 2041 Albuterol Sulfate 2 PUF Q4H PRN 01/15 1130 AC INH Calcitriol 0.25 MCG DAILY 01/17 09 AC PO Calcium Carbonate 650 MG BID 01/17 0900 AC PO Diltiazem HCl 300 MG DAILY 01/15 1128 AC 01/16 PO 0856 Ferrous Sulfate 325 MG BID 01/15 1128 AC 01/16 PO 2014 Fluticasone 2 PUF BID 01/15 1129 AC 01/16 Propionate INH 2013 Furosemide 40 MG BID 01/16 0900 AC 01/16 IV 2015 Insulin Aspart 0 TIDAC 01/15 1700 AC SC Levothyroxine Sodium 0.15 MG DAILY AC 01/15 1308 AC 01/17 PO 0524 Losartan Potassium 100 MG DAILY 01/15 1130 AC 01/16 PO 0856 Magnesium Oxide 400 MG ONE ONE 01/16 1000 DC 01/16 PO 01/16 1001 1147 Magnesium Oxide 400 MG BID 01/15 1130 AC 01/17 PO 0802 Magnesium Sulfate 1 GM ONCE ONE 01/16 1545 DC 01/16 Dextrose/Water 100 ML IV 01/16 1944 1629 Metoprolol Succinate 50 MG DAILY 01/15 1133 AC 01/16 PO 0856 Rivaroxaban 20 MG DAILY 01/16 0900 DC PO Rivaroxaban 20 MG DAILY 01/15 2300 AC 01/16 PO 0856 Senna/Docusate Sodium 1 TAB AT BEDTIME PRN 01/15 1315 AC PO Tramadol HCl 50 MG Q6P PRN 01/15 1330 AC PO Tramadol HCl 25 MG Q6P PRN 01/15 1315 AC PO Last 24 Hrs of Lab/Mateusz Results Last 24 Hrs of Labs/Mics: Laboratory Tests 01/17/18 0620: Sodium Pending, Potassium Pending, Chloride Pending, Carbon Dioxide Pending, Anion Gap Pending, BUN Pending, Creatinine Pending, BUN/Creatinine Ratio Pending , CBC w Diff Pending, WBC Pending, RBC Pending, Hgb Pending, Hct Pending, MCV Pending, MCH Pending, MCHC Pending, RDW Pending, Plt Count Pending, MPV Pending Assessment/Plan Assessment: The patient is a 72-year-old female with extensive past medical history including and not limited to obesity,, asthma, hypertension, hyperlipidemia, diabetes mellitus, atrial fibrillation, multifocal papillary carcinoma status post thyroidectomy. She was recently treated at [facility] for symptomatic hypocalcemia secondary to partial parathyroid hormone deficiency. 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 During her last visit she desaturated multiple times. She was diuresed multiple times with IV Lasix. Her home dose of Lasix and later spironolactone was resumed however there was no evidence of congestive heart failure on chest x-ray. Patient continued to have bilateral crackles during her stay. She was evaluated by company dancer Dr. Cruz, who thought that patient most likely has interstitial lung disease rather than a CHF exacerbation because of coarse bilateral crackles. Hence we will reduce the Lasix to 40 mg a day and discontinued patient spironolactone on discharge. Her dose of Cardizem was also increased from 240 to 300 on discharge. Her Xarelto was continued. We proceeded with CT scan which was positive for chronic small airway with chronic airway thickening in right lower lobe. And was positive for multiple small pulmonary nodules. Patient is admitted again with shortness of breath. She decided yesterday up to 80s when her oxygen came off. She is currently being treated for acute on chronic CHF exacerbation with IV diuresis. I believe that patient should undergo pulmonary evaluation and we should pursue pulmonary pathology including ILD as cause of her tautness of breath. 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 Patient is currently in negative balance. Weight today is 179. On her labs today H/H remained stable. Bicarb is 42 today most likely secondary to contraction alkalosis secondary to Lasix administration. There also might be some component of obstructive sleep apnea?. Will discuss with cardiology. For now patient is on IV Lasix 40 mg twice daily. She is satting 96% on 2 L. Continue total respiratory care. Will reduce the Lasix to 40 mg IV once daily for now I have resumed her calcitriol calcium bicarb and vitamin D supplementation with history of hypocalcemia in setting of partial parathyroid deficiency. She is currently on magnesium supplementation. Her magnesium level was low yesterday requiring IV Mg for hypomagnesemia. Today's level is pending. We will continue to monitor and replete accordingly. She should be evaluated for the causes of hypomagnesemia and will require 24 hour urine collection which was deferred last time. Her atrial fibrillation remains rate controlled and she is anticoagulated with Xarelto 20 mg daily. We will continue diltiazem extended release 300 mg. She is also metoprolol XL 50 mg We are continuing home dose of levothyroxine. And maintain her on insulin sliding scale. She remains full code Problem List: 1. Heart failure, diastolic, with acute decompensation Pain Ratin Pain Location: na Pain Goal: Pain 4 or less Pain Plan: prn Tomorrow's Labs & Rationales: Juliane Torres 01/17/18 1143: Attending MD Review Statement Attending Statement Attending MD Statement: examined this patient, discuss w/resident/PA/FAMILY SUPPORT WORKER, agreed w/resident/PA/FAMILY SUPPORT WORKER, reviewed EMR data (avail), discussed with nursing, discussed with case mgmt Attending Assessment/Plan: Spoke with pt about previous exposure to smoking. Pt says her parents smoked and also her smoked but she herself did not smoke. So she does have some h/o passive smoking exposure . Pt also gives h/o working in [employer] factory for 25 years and thus may have some occupational exposure. We will get pulmonary consult and will f/u on their recommendations. Contraction alkalosis- likely secondary to diuresis. will decrease lasix to 40mg iv qd from bid for now. Reviewed echo- her pulm pressure are 40mm- mild pulm htn. d/w pt the care plan.
[2018-01-17 07:54] LABS: ABSOLUTE BASOPHIL COUNT 0 /CUMM (0.0-0.2); ABSOLUTE EOSINOPHIL COUNT 0.1 /CUMM (0.0-0.7); ABSOLUTE GRANULOCYTE CT 4.2 /CUMM (1.4-6.5); ABSOLUTE LYMPH COUNT 1.4 /CUMM (1.2-3.4); ABSOLUTE MONOCYTE COUNT 0.4 /CUMM (0.10-0.60); BASOPHIL % 0.4 % (0.0-2.0); EOSINOPHIL % 0.9 % (0-5); GRANULOCYTE % 68.1 % (42.2-75.2); HEMATOCRIT 33.5 % (37-47); MEAN CORPUSCULAR HGB 21.4 PG (27.0-31.0); MEAN CORPUSCULAR HGB CONC 31.2 G/DL (33.0-37.0); MEAN CORPUSCULAR VOLUME 68.5 FL (81.0-99.0); MEAN PLATELET VOLUME 8.3 FL (7.4-10.4); PLATELET COUNT 239 /CUMM (130-400); RED BLOOD CELL CT 4.89 /CUMM (4.20-5.40); WHITE BLOOD CELL COUNT 6.2 /CUMM (4.8-10.8)
--- NOTE | 2018-01-17 11:29 | PN- Cardiology ---
Subjective Subjective: Feeling well today. Denies any productive cough. No chest pain or palpitations. Objective Vital Signs and I&Os Vital Signs Date Time Temp Pulse Resp B/P B/P Pulse O2 O2 Flow FiO2 Mean Ox Delivery Rate 01/17 0807 126/64 01/17 0806 126/68 01/17 0800 94 Nasal 2.0L Cannula 01/17 0649 97.9 84 20 120/80 96 Nasal 2.0L Cannula 01/17 0000 94 Nasal 2.0L Cannula 01/16 2204 97.4 116 20 126/84 93 Nasal 2.0L Cannula 01/16 1600 96 Nasal 2.0L Cannula 01/16 1400 98.9 70 20 118/60 97 Intake & Output 01/17 1600 01/17 0800 01/17 0000 01/16 1600 01/16 0800 01/16 0000 Intake Total 200 240 420 100 240 Output Total 850 700 950 425 525 Balance -650 -460 -530 -325 -285 Intake, IV 20 Intake, Oral 200 240 400 100 240 Output, Urine 850 700 950 425 525 Patient 179 lb 177 lb Weight Weight Bed scale Bed scale Measurement Method Physical Exam: General: no apparent distress. Alert. Eyes: No obvious scleral icterus. HEENT: No jugular venous distention or abnormal jugular venous pulsations. Cardiovascular: Normal intensity S1/S2. Irregular, 1 out of 6 systolic murmur Respiratory: Trace wheezes Abdomen: Soft, nontender with no guarding or rebound tenderness. Musculoskeletal: No clubbing or cyanosis noted; no edema Skin: warm Neurologic: No gross focal deficits noted. Current Medications: Current Medications Sig/Diana Start time Last Medication Dose Route Stop Time Status Admin Acetaminophen 650 MG Q6P PRN 01/15 1315 AC 01/15 PO 2041 Albuterol Sulfate 2 PUF Q4H PRN 01/15 1130 AC INH Calcitriol 0.25 MCG DAILY 01/17 09 AC 01/17 PO 0938 Calcium Carbonate 650 MG BID 01/17 0900 AC 01/17 PO 0932 Diltiazem HCl 300 MG DAILY 01/15 1128 AC 01/17 PO 0805 Ferrous Sulfate 325 MG BID 01/15 1128 AC 01/17 PO 0805 Fluticasone 2 PUF BID 01/15 1129 AC 01/17 Propionate INH 0806 Furosemide 40 MG BID 01/16 0900 DC 01/17 IV 0806 Insulin Aspart 0 TIDAC 01/15 1700 AC SC Levothyroxine Sodium 0.15 MG DAILY AC 01/15 1308 AC 01/17 PO 0524 Losartan Potassium 100 MG DAILY 01/15 1130 AC 01/17 PO 0806 Magnesium Oxide 400 MG BID 01/15 1130 AC 01/17 PO 0802 Magnesium Sulfate 1 GM ONCE ONE 01/16 1545 DC 01/16 Dextrose/Water 100 ML IV 01/16 1944 1629 Metoprolol Succinate 50 MG DAILY 01/15 1133 AC 01/17 PO 0807 Rivaroxaban 20 MG DAILY 01/15 2300 AC 01/17 PO 0805 Senna/Docusate Sodium 1 TAB AT BEDTIME PRN 01/15 1315 AC PO Tramadol HCl 50 MG Q6P PRN 01/15 1330 AC PO Tramadol HCl 25 MG Q6P PRN 01/15 1315 AC PO Results Last 48 Hrs of Labs/Mics: Laboratory Tests 01/17/18 0620: Anion Gap 12, Estimated GFR > 60, BUN/Creatinine Ratio 32.9 H, Magnesium 1.7, CBC w Diff NO MAN DIFF REQ, RBC 4.89, MCV 68.5 L, MCH 21.4 L, MCHC 31.2 L, RDW 16.0 H, MPV 8.3, Gran % 68.1, Lymphocytes % 23.5, Monocytes % 7.1, Eosinophils % 0.9, Basophils % 0.4, Absolute Granulocytes 4.2, Absolute Lymphocytes 1.4, Absolute Monocytes 0.4, Absolute Eosinophils 0.1, Absolute Basophils 0 01/16/18 0735: Anion Gap 14, Estimated GFR > 60, BUN/Creatinine Ratio 24.3, Calcium 8.6, Magnesium 1.4 L 01/15/18 1536: Troponin I < 0.01 01/15/18 1206: Troponin I < 0.01 01/15/18 1105: pH 7.34 L, pCO2 60 *H, pO2 86, HCO3 31 H, ABG O2 Sat (Measured) 94.0 L, Carboxyhemoglobin 0.4 L, O2 Concentration % 2L, O2 Delivery Method N/C, Phlebotomy Draw Site RIGHT RADIAL Recent Imaging Studies: Telemetry tracings were personally reviewed and show atrial fibrillation with 3 beat wide complex run possibly due to aberrant conduction Chest CT No appreciable change from recent exam 01/06/2018. Chronic volume loss and bronchiectasis in the right lower lobe adjacent to the spine and evidence of more proximal chronic airways disease. No evidence of CHF or pneumonia. Stable small pulmonary nodules. Stable enlargement of the heart. CXR: There is new patchy airspace opacity at the right lung base concerning for developing pneumonia. Recent Echo: Technically difficult study. Left ventricular cavity size normal. Left ventricular wall thickness at upper limits of normal. No obvious regional wall motion abnormalities. Left ventricular ejection fraction is estimated at 55 %. Normal right ventricular size and function. Mild right atrial dilatation. Moderate left atrial dilatation. Moderate mitral regurgitation. [id number] tricuspid regurgitation. Unable to estimate the right ventricular systolic pressure. Assessment/Plan Assessment/Plan 1. Hypomagnesemia 2. Chronic atrial fibrillation on Xarelto 3. History of hypertension/hyperlipidemia/diabetes mellitus 4. History of mitral regurgitation 5. History of prior thyroidectomy 6. Abnormal CT scan/CXR No evidence of CHF on the admission CT scan and the patient appears euvolemic on exam. Consider pulmonary consultation given the abnormal CT scan. Chest x-ray as above shows airspace opacity at the right lung base. Continue on daily Xarelto for known atrial fibrillation. She may be a candidate for outpatient stress testing in the future. Serial troponins were negative. Shakeel Fajardo MD [facility] Continue telemetry? No
[2018-01-17 15:01] VITALS: BP 92/62
[2018-01-17 21:40] VITALS: BP 102/62
[2018-01-18 06:23] VITALS: BP 110/60
--- NOTE | 2018-01-18 07:04 | PN- Housestaff ---
See Addendum Subjective Follow-up For: Shortness of breath Tele-Events Since Last Visit: Normal sinus rhythm heart rate in 80s Subjective: Seen and examined. Resting comfortably. Watching television. Reports improvement in respiratory symptoms. No acute events overnight currently satting 93% on 1.5 L. Patient reported that she was seen by a biomedical electronics technician. 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 Review of Systems Constitutional: Reports: see HPI. Objective Last 24 Hrs of Vital Signs/I&O Vital Signs Date Time Temp Pulse Resp B/P B/P Pulse O2 O2 Flow FiO2 Mean Ox Delivery Rate 01/18 623 97.7 119 18 110/60 93 Nasal 1.5L Cannula 01/18 0000 Nasal 1.0L Cannula 01/17 2140 98.0 77 48 102/62 94 Nasal Cannula 01/17 2130 85 Room Air 01/17 1715 96 Nasal 1.0L Cannula 01/17 1501 97.8 98 18 92/62 98 01/17 0807 126/64 01/17 0806 126/68 01/17 0800 94 Nasal 2.0L Cannula Intake & Output 01/18 0800 01/18 0000 01/17 1600 Intake Total 200 120 420 Output Total 1100 1600 Balance -900 120 -1180 Intake, IV 20 Intake, Oral 200 120 400 Output, Urine 1100 1600 Patient 179 lb Weight Physical Exam General Appearance: Alert, Oriented X3, Cooperative Cardiovascular: Normal S1, Normal S2 Lungs: Clear to Auscultation Neurological: Normal Speech Current Medications: Current Medications Sig/Diana Start time Last Medication Dose Route Stop Time Status Admin Acetaminophen 650 MG .STK-MED ONE 01/17 1626 DC PO 01/17 162 Acetaminophen 650 MG Q6P PRN 01/15 1315 AC 01/17 PO 1627 Albuterol Sulfate 2 PUF Q4H PRN 01/15 1130 AC INH Calcitriol 0.25 MCG DAILY 01/17 09 AC 01/18 PO 0807 Calcium Carbonate 650 MG BID 01/17 09 AC 01/18 PO 0808 Cholecalciferol 1,000 IU DAILY 01/17 1309 AC 01/18 PO 0808 Diltiazem HCl 300 MG DAILY 01/15 1128 AC 01/18 PO 0808 Ferrous Sulfate 325 MG BID 01/15 1128 AC 01/18 PO 0807 Fluticasone 2 PUF BID 01/15 1129 AC 01/18 Propionate INH 0808 Furosemide 40 MG DAILY 01/18 0900 AC 01/18 IV 0807 Furosemide 40 MG BID 01/16 0900 DC 01/17 IV 0806 Insulin Aspart 0 TIDAC 01/15 1700 AC SC Levothyroxine Sodium 0.15 MG DAILY AC 01/15 1308 AC 01/18 PO 0552 Losartan Potassium 100 MG DAILY 01/15 1130 AC 01/18 PO 0810 Magnesium Oxide 400 MG BID 01/15 1130 AC 01/18 PO 0807 Metoprolol Succinate 50 MG DAILY 01/15 1133 AC 01/18 PO 0810 Rivaroxaban 20 MG DAILY 01/15 2300 AC 01/18 PO 0807 Senna/Docusate Sodium 1 TAB AT BEDTIME PRN 01/15 1315 AC PO Tramadol HCl 50 MG Q6P PRN 01/15 1330 AC PO Tramadol HCl 25 MG Q6P PRN 01/15 1315 AC PO Last 24 Hrs of Lab/Mateusz Results Last 24 Hrs of Labs/Mics: Laboratory Tests 01/18/18 0645: Anion Gap 11, Estimated GFR > 60, BUN/Creatinine Ratio 32.5 H Assessment/Plan Assessment: The patient is a 72-year-old female with extensive past medical history including and not limited to obesity,, asthma, hypertension, hyperlipidemia, diabetes mellitus, atrial fibrillation, multifocal papillary carcinoma status post thyroidectomy. 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 During her last visit she desaturated multiple times. She was diuresed multiple times with IV Lasix. Her home dose of Lasix and later spironolactone was resumed however there was no evidence of congestive heart failure on chest x-ray. Patient continued to have bilateral crackles during her stay. She was evaluated by software engineer Dr. Cruz, who thought that patient most likely has interstitial lung disease rather than a CHF exacerbation because of coarse bilateral crackles. Hence we will reduce the Lasix to 40 mg a day and discontinued patient spironolactone on discharge. Her dose of Cardizem was also increased from 240 to 300 on discharge. Her Xarelto was continued. We proceeded with CT scan which was positive for chronic small airway with chronic airway thickening in right lower lobe. And was positive for multiple small pulmonary nodules. #Shortness of breath Patient is admitted again with shortness of breath. She desaturated on Wednesday up to 80s and tonight. She is currently being treated for acute on chronic CHF exacerbation with IV diuresis. 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 -Monitor ins and outs, patient is currently in negative balance of almost 1 L -Daily weights, -Monitor BEP while on IV diuresis -Currently on IV Lasix 40 mg once daily consider switch to p.o. Lasix -Oxygen supplementation to maintain oxygen saturation 92% we will check ambulatory saturation today. -Patient has been evaluated by pulmonology who did not think that her current symptoms are pulmonary in etiology. Patient would definitely benefit from pulmonary function tests and sleep study. #Contraction alkalosis Bicarb is high most likely secondary to contraction alkalosis secondary to Lasix -Continues to be elevated up to 41, consider addition of Diamox will discuss with attending #Hypocalcemia I have resumed her calcitriol calcium bicarb and vitamin D supplementation with history of hypocalcemia in setting of partial parathyroid deficiency. #Hypomagnesemia She is currently on magnesium supplementation. Her magnesium level was low yesterday requiring IV Mg for hypomagnesemia. We will continue to monitor and replete accordingly. -She should be evaluated for the causes of hypomagnesemia and will require 24 hour urine collection which was deferred last time. #Atrial fibrillation Her atrial fibrillation remains rate controlled and she is anticoagulated with Xarelto 20 mg daily. We will continue diltiazem extended release 300 mg. She is also metoprolol XL 50 mg #History of hypothyroidism and diabetes mellitus We are continuing home dose of levothyroxine. And maintain her on insulin sliding scale. She remains full code Problem List: 1. Atrial fibrillation 2. Heart failure, diastolic, with acute decompensation Pain Ratin Pain Location: na Pain Goal: Pain 4 or less Pain Plan: prn Tomorrow's Labs & Rationales: bep
--- NOTE | 2018-01-18 07:28 | Cons- Pulmonary ---
General Information and HPI Consulting Request Date of Consult: 01/18/18 Requested By: Vibha Reason for Consult: Chronic hypercapnic respiratory failureChronic hypercapnic respiratory failure History of Present Illness: Patient is [id number] is 72-year-old with history of atrial fibrillation bronchitis suspected sleep apnea with history of atrial fibrillation bronchitis suspected sleep apnea admitted with increasing shortness of breath and found to have elevated BNP. She's had cough but is nonproductive . CT scan of the chest shows evidence of chronic pulmonary nodules focal bronchiectasis without evidence of interstitial lung disease Allergies/Medications Allergies: Coded Allergies: NO KNOWN ALLERGIES (06/13/14) Home Med List: Albuterol Sulfate (Proair Hfa) 90 MCG HFA.AER.AD 2 PUF INH Q4H PRN SOB/ WHEEZING (Reported) Calcitriol 0.5 MCG CAPSULE 1 CAP PO DAILY SUPPLEMENT (Reported) Calcium Carbonate (Oysco-500) 500 MG CALCIUM (1,250 MG) TABLET 1 TAB PO 4XDAILY SUPPLEMENT (Reported) Diltiazem HCl (Diltiazem 24HR Cd) 300 MG CAP.ER.24H 1 TAB PO DAILY HEART RATE . Ferrous Sulfate 324 MG (65 MG IRON) TABLET.DR 1 TAB PO DAILY SUPPLEMENT ( Reported) Fluticasone Propionate (Flovent Hfa) 220 MCG AER.W.ADAP 1 PUFF INH BID RESPIRATORY (Reported) Furosemide (Lasix) 80 MG TABLET 0.5 TAB PO DAILY DIURETIC (Reported) Levothyroxine Sodium 150 MCG TABLET 1 TAB PO DAILY THYROID (Reported) Losartan Potassium 100 MG TABLET 1 TAB PO DAILY HEART/BP (Reported) Magnesium Oxide (Magnesium) 400 MG CAPSULE 1 CAP PO BID SUPPLEMENT (Reported) Metformin HCl (Glucophage) 850 MG TABLET 1 TAB PO BID DM (Reported) Metoprolol Tartrate (Lopressor) 50 MG TABLET 1.5 TAB PO QPM HEART/BP ( Reported) Metoprolol Tartrate (Lopressor) 100 MG TABLET 1 TAB PO QAM HEART/BP (Reported ) Potassium Chloride 20 MEQ TAB.ER.PRT 1 TAB PO DAILY SUPPLEMENT (Reported) Rivaroxaban (Xarelto) 20 MG TABLET 1 TAB PO DAILY BLOOD THINNER (Reported) with food Rosuvastatin Calcium (Crestor) 20 MG TABLET 1 TAB PO QPM CHOLESTEROL ( Reported) Spironolactone 25 MG TABLET 1 TAB PO DAILY DIURETIC (Reported) Tramadol HCl 50 MG TABLET 0.5-1 TAB PO Q6P PRN PAIN (Reported) Review of Systems Review of Systems Constitutional: Denies: chills, fever. Cardiovascular: Denies: chest pain. Respiratory: Reports: cough, short of breath. Denies: hemoptysis. GI: Denies: abdominal pain, diarrhea, melena. 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 Home Who Do You Live With? child Services at Home: None Primary Language: [facility] Smoking Status: Never Smoked Functional Ability ADLs Independent: dressing, eating, toileting, bathing. Ambulation: independent IADLs Independent: shopping, housework, finances, food prep, telephone, transportation , medication admin. Exam & Diagnostic Data Last 24 Hrs of Vital Signs/I&O Vital Signs Date Time Temp Pulse Resp B/P B/P Pulse O2 O2 Flow FiO2 Mean Ox Delivery Rate 01/18 0623 97.7 119 18 110/60 93 Nasal 1.5L Cannula 01/18 0000 Nasal 1.0L Cannula 01/17 2140 98.0 77 48 102/62 94 Nasal Cannula 01/17 2130 85 Room Air 01/17 1715 96 Nasal 1.0L Cannula 01/17 1501 97.8 98 18 92/62 98 01/17 0807 126/64 01/17 0806 126/68 01/17 0800 94 Nasal 2.0L Cannula Intake & Output 01/18 0800 01/18 0000 01/17 1600 Intake Total 200 120 420 Output Total 1100 1600 Balance -900 120 -1180 Intake, IV 20 Intake, Oral 200 120 400 Output, Urine 1100 1600 Patient 179 lb Weight Oxygen saturation 1.5 L 93% HEENT exam shows no adenopathy exam for chest shows rare basilar crackles there are no wheezes cardiac exam shows an irregular rhythm abdomen is soft nontender extremities have trace edema arterial blood gases show compensated hypercapnic respiratory failure and metabolic alkalosis Last 48 Hrs of Labs/Mateusz: Laboratory Tests 01/18/18 0645: Sodium Pending, Potassium Pending, Chloride Pending, Carbon Dioxide Pending, Anion Gap Pending, BUN Pending, Creatinine Pending, BUN/Creatinine Ratio Pending 01/17/18 0620: Anion Gap 12, Estimated GFR > 60, BUN/Creatinine Ratio 32.9 H, Magnesium 1.7, CBC w Diff NO MAN DIFF REQ, RBC 4.89, MCV 68.5 L, MCH 21.4 L, MCHC 31.2 L, RDW 16.0 H, MPV 8.3, Gran % 68.1, Lymphocytes % 23.5, Monocytes % 7.1, Eosinophils % 0.9, Basophils % 0.4, Absolute Granulocytes 4.2, Absolute Lymphocytes 1.4, Absolute Monocytes 0.4, Absolute Eosinophils 0.1, Absolute Basophils 0 01/16/18 0735: Anion Gap 14, Estimated GFR > 60, BUN/Creatinine Ratio 24.3, Calcium 8.6, Magnesium 1.4 L Assessment/Plan Impression/Plan: 72-year-old with elevated BMI chronic hypercapnia admitted with increasing shortness of breath prior cardiac ultrasound suggested pulmonary hypertension. There is no evidence for interstitial lung disease . Prior pulmonary function test showed evidence of Prior pulmonary function tests showed evidence of airflow obstruction though she was unable to perform complete testing. Recommendations: Patient will need follow-up CT scan for pulmonary nodules repeat outpatient pulmonary function testing and sleep study. Correct contraction metabolic alkalosis maintain normal potassium consider when necessary Diamox . Consult Acknowledgment - Thank you for your consult request.
--- NOTE | 2018-01-18 11:29 | PN- Cardiology ---
Subjective Subjective: The patient is awake, alert States feeling improved from a respiratory standpoint The events of the last 24 hours as well as telemetry were reviewed. Review of Systems: The review of systems is negative for chest pains, palpitations nor lightheadedness. The remainder of the 14 point review of systems is noncontributory with the exception of above. Objective Vital Signs and I&Os Vital Signs Date Time Temp Pulse Resp B/P B/P Pulse O2 O2 Flow FiO2 Mean Ox Delivery Rate 01/18 0945 94 Nasal 1.0L Cannula 01/18 0810 103 110/60 01/18 0810 88 110/60 01/18 0623 97.7 119 18 110/60 93 Nasal 1.5L Cannula 01/18 0000 Nasal 1.0L Cannula 01/17 2140 98.0 77 48 102/62 94 Nasal Cannula 01/17 2130 85 Room Air 01/17 1715 96 Nasal 1.0L Cannula 01/17 1501 97.8 98 18 92/62 98 Intake & Output 01/18 1600 01/18 0800 01/18 0000 01/17 1600 01/17 0800 01/17 0000 Intake Total 200 120 420 200 240 Output Total 1100 1600 850 700 Balance -900 120 -1180 -650 -460 Intake, IV 20 Intake, Oral 200 120 400 200 240 Output, Urine 1100 1600 850 700 Patient 179 lb 179 lb Weight Weight Bed scale Measurement Method Physical Exam: General: Nontoxic, no apparent distress. HEENT: Sclera and conjunctiva within normal limits, without xanthelasmas. Neck: Carotids 2+ without bruits. Respiratory: Scattered rhonchi, air movement is decreased at both bases, without accessory respiratory muscle use. Heart: Regular rate and rhythm, without murmurs, without JVD. Abdomen: Soft, nontender, no masses, normoactive bowel sounds. Extremities: Without clubbing, cyanosis, without edema. Neuro: Nonfocal exam, strength, 5 out of 5 Skin: Within normal limits without lesions. Psych: Mood and affect: Normal Current Medications: Current Medications Sig/Diana Start time Last Medication Dose Route Stop Time Status Admin Acetaminophen 650 MG .STK-MED ONE 01/17 1626 DC PO 01/17 162 Acetaminophen 650 MG Q6P PRN 01/15 1315 AC 01/17 PO 1627 Albuterol Sulfate 2 PUF Q4H PRN 01/15 1130 AC INH Calcitriol 0.25 MCG DAILY 01/17 0900 AC 01/18 PO 0807 Calcium Carbonate 650 MG BID 01/17 0900 AC 01/18 PO 0808 Cholecalciferol 1,000 IU DAILY 01/17 1309 AC 01/18 PO 0808 Diltiazem HCl 300 MG DAILY 01/15 1128 AC 01/18 PO 0808 Ferrous Sulfate 325 MG BID 01/15 1128 AC 01/18 PO 0807 Fluticasone 2 PUF BID 01/15 1129 AC 01/18 Propionate INH 0808 Furosemide 40 MG DAILY 01/18 0900 AC 01/18 IV 0807 Insulin Aspart 0 TIDAC 01/15 1700 AC SC Levothyroxine Sodium 0.15 MG DAILY AC 01/15 1308 AC 01/18 PO 0552 Losartan Potassium 100 MG DAILY 01/15 1130 AC 01/18 PO 0810 Magnesium Oxide 400 MG BID 01/15 1130 AC 01/18 PO 0807 Metoprolol Succinate 50 MG DAILY 01/15 1133 AC 01/18 PO 0810 Rivaroxaban 20 MG DAILY 01/15 2300 AC 01/18 PO 0807 Senna/Docusate Sodium 1 TAB AT BEDTIME PRN 01/15 1315 AC PO Tramadol HCl 50 MG Q6P PRN 01/15 1330 AC PO Tramadol HCl 25 MG Q6P PRN 01/15 1315 AC PO Results Last 48 Hrs of Labs/Mics: Laboratory Tests 01/18/18 0645: Anion Gap 11, Estimated GFR > 60, BUN/Creatinine Ratio 32.5 H, Magnesium 1.8 01/17/18 0620: Anion Gap 12, Estimated GFR > 60, BUN/Creatinine Ratio 32.9 H, Magnesium 1.7, CBC w Diff NO MAN DIFF REQ, RBC 4.89, MCV 68.5 L, MCH 21.4 L, MCHC 31.2 L, RDW 16.0 H, MPV 8.3, Gran % 68.1, Lymphocytes % 23.5, Monocytes % 7.1, Eosinophils % 0.9, Basophils % 0.4, Absolute Granulocytes 4.2, Absolute Lymphocytes 1.4, Absolute Monocytes 0.4, Absolute Eosinophils 0.1, Absolute Basophils 0 Assessment/Plan Assessment/Plan 1. Hypomagnesemia 2. Chronic atrial fibrillation on Xarelto 3. History of hypertension/hyperlipidemia/diabetes mellitus 4. History of mitral regurgitation 5. History of prior thyroidectomy 6. Abnormal CT scan/CXR Dyspnea: The patient has a history of chronic CHF with preserved LV systolic function; however, presented with dyspnea and currently appears euvolemic. In review of her CAT scan, there is significant volume loss with bronchiectasis, and I believe this is the predominant cause for her acute readmission. This is supported by her continued dyspnea despite significant diuresis as well as a noted contraction alkalosis, and rising BUN with diuresis. Aggressive pulmonary toilet as well as inhaler therapy should be considered. At this point, we will attempt to maintain an overall euvolemic state. Atrial fibrillation: Stable, continue her current medication regimen including full anticoagulation. Continue telemetry? Yes
[2018-01-18 15:14] VITALS: BP 108/60
[2018-01-18 21:45] VITALS: BP 112/60
[2018-01-19 06:33] VITALS: BP 132/76
--- NOTE | 2018-01-19 07:22 | PN- Housestaff ---
See Addendum Subjective Follow-up For: Shortness of breath Tele-Events Since Last Visit: Atrial fibrillation with 70s-80s heart rate 4 beat run of V. tach Subjective: Seen and examined. Resting comfortably. No overnight acute events. Patient used CPAP overnight no hypoxic events. Review of Systems Constitutional: Reports: see HPI. Objective Last 24 Hrs of Vital Signs/I&O Vital Signs Date Time Temp Pulse Resp B/P B/P Pulse O2 O2 Flow FiO2 Mean Ox Delivery Rate 01/19 0921 92 Room Air Room Air 01/19 0809 132/62 01/19 0808 132/64 01/19 0633 97.5 93 20 132/76 95 Room Air 01/19 0552 96 95 01/19 0014 86 93 01/18 2145 97.6 75 20 112/60 93 Room Air 01/18 2028 Room Air 01/18 1923 Room Air 01/18 1514 98.2 61 20 108/60 92 Intake & Output 01/19 1600 01/19 0800 01/19 0000 Intake Total Output Total 500 1000 Balance -500 -1000 Output, Urine 500 1000 Patient 180 lb Weight Weight Bed scale Measurement Method Physical Exam General Appearance: Alert, Oriented X3 Cardiovascular: Normal S1, Normal S2 Lungs: b/l crackels Abdomen: Normal Bowel Sounds, Soft Current Medications: Current Medications Sig/Diana Start time Last Medication Dose Route Stop Time Status Admin Acetaminophen 650 MG .STK-MED ONE 01/18 1857 DC PO 01/18 185 Acetaminophen 650 MG Q6P PRN 01/15 1315 AC 01/18 PO 1859 Albuterol Sulfate 3 ML BID 01/18 2100 AC 01/19 INH 0920 Albuterol Sulfate 2 PUF Q4H PRN 01/15 1130 AC INH Calcitriol 0.25 MCG DAILY 01/17 0900 AC 01/19 PO 0809 Calcium Carbonate 650 MG BID 01/17 0900 AC 01/19 PO 0809 Cholecalciferol 1,000 IU DAILY 01/17 1309 AC 01/19 PO 0808 Diltiazem HCl 300 MG DAILY 01/15 1128 AC 01/19 PO 0809 Ferrous Sulfate 325 MG BID 01/15 1128 AC 01/19 PO 0807 Fluticasone 2 PUF BID 01/15 1129 AC 01/19 Propionate INH 0809 Furosemide 40 MG DAILY 01/19 0900 AC 01/19 PO 0809 Furosemide 40 MG DAILY 01/18 0900 DC 01/18 IV 0807 Insulin Aspart 0 TIDAC 01/15 1700 AC 01/18 SC 1704 Levothyroxine Sodium 0.15 MG DAILY AC 01/15 1308 AC 01/19 PO 0556 Losartan Potassium 100 MG DAILY 01/15 1130 AC 01/19 PO 0808 Magnesium Oxide 400 MG BID 01/15 1130 AC 01/19 PO 0808 Metoprolol Succinate 50 MG DAILY 01/15 1133 AC 01/19 PO 0809 Metoprolol Tartrate 50 MG ONCE ONE 01/19 1100 AC PO 01/19 1101 Patient Medication 1 ED ONE ONE 01/18 1530 DC Teaching ED 01/18 1531 Rivaroxaban 20 MG DAILY 01/15 2300 AC 01/19 PO 0808 Senna/Docusate Sodium 1 TAB AT BEDTIME PRN 01/15 1315 AC PO Tramadol HCl 50 MG Q6P PRN 01/15 1330 AC PO Tramadol HCl 25 MG Q6P PRN 01/15 1315 AC PO Last 24 Hrs of Lab/Mateusz Results Last 24 Hrs of Labs/Mics: Laboratory Tests 01/19/18626: Anion Gap 10, Estimated GFR > 60, BUN/Creatinine Ratio 41.3 H, Calcium 8.1 L, Magnesium 1.9, Albumin 3.7 Assessment/Plan Assessment: The patient was being treated and evaluated for following conditions: #Shortness of breath Patient was admitted for shortness of breath and was treated for acute on chronic CHF exacerbation with IV diuresis. Patient is negative balance of 5 L. She has been transitioned to oral Lasix. CT scan showing bronchiectasis area is not big enough to cause her symptoms at present. She does have some chronic airway disease. She will will benefit from a sleep study and thyroid function test. There were no episodes of desaturating overnight. She used CPAP overnight. She is going to be discharged on home dose of Lasix and pulmonology follow-up. She has pulmonary nodules which will also require monitoring by PCP/ pulmonology. 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 #Hypomagnesemia She is currently on magnesium supplementation. Her magnesium level was low yesterday requiring IV Mg for hypomagnesemia. We will continue to monitor and replete accordingly. -She should be evaluated for the causes of hypomagnesemia and will require 24 hour urine collection which was deferred last time. #Atrial fibrillation Her atrial fibrillation remains rate controlled and she is anticoagulated with Xarelto 20 mg daily. We will continue diltiazem extended release 300 mg. She was started on 50 mg of metoprolol XL and had 4-5 beat run of V. tach or night. Her home dose is 100 mg metoprolol in the morning and 70 5 in the PM will resume her home dose. #History of hypothyroidism and diabetes mellitus We are continuing home dose of levothyroxine. And maintain her on insulin sliding scale. Problem List: 1. Heart failure, diastolic, with acute decompensation Pain Ratin Pain Location: nA Pain Goal: Pain 4 or less Pain Plan: PRN Tomorrow's Labs & Rationales: none Her atrial fibrillation remains rate controlled and she is anticoagulated with Xarelto 20 mg daily. We will continue diltiazem extended release 300 mg. She is also metoprolol XL 50 mg #History of hypothyroidism and diabetes mellitus We are continuing home dose of levothyroxine. And maintain her on insulin sliding scale.
--- NOTE | 2018-01-19 07:22 | Discharge Summary ---
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 She was recently discharged from [facility] on 01/06/15 after being treated for hypocalcemia and hypomagnesemia. He presented to [place] ED on 01/15/18 with complaint of shortness of breath. Vitals on presentation within normal limits with oxygen saturation of 92% on 3 L nasal cannula Admission labs were significant for H/H of 9.9/31.5 around her baseline, BUN of 32 proBNP of 1800 She was admitted to telemetry floor for treatment and evaluation of acute hypoxic respiratory failure. Her shortness of breath was thought to be most likely secondary to acute on chronic congestive heart failure (systolic). She was aggressively diuresed with IV Lasix and transition to oral Lasix. Patient underwent CT scan on presentation which did not show evidence of CHF or pneumonia. There was stable enlargement of heart along with chronic volume loss in right lower lobe along with some evidence of chronic airway disease. The small pulmonary nodules remain stable. During her last admission it was brought up by cardiology that she might have underlying interstitial lung disease contributing to her current infection and her Lasix dose was decreased from 80 to 40 mg and spironolactone was stopped during last hospitalization. We consulted pulmonology. CT scan is showing bronchiectasis, not big enough to cause her symptoms at the present. Dr. Scott reviewed the CT scan personally and other than chronic pulmonary nodules, focal small bronchiectasis, there is no evidence of interstitial lung disease. During her stay she desaturated overnight into the 80s. Patient's family reported that she has history of obstructive sleep apnea but is noncompliant with the CPAP. She was started on CPAP overnight and hence did not desaturate. Oxygen requirements were tapered to room air. She requires cardiology and pulmonology follow-up. We are discharging her on home dose of Lasix 40 mg, she has a follow-up appointment with cardiology in 1 week and depending upon her volume status during that visit her diuretic dose should be adjusted. She will most definitely benefit from a sleep study and pulmonary function tests for which we are going to provide referral for pulmonology. She also has multiple small pulmonary nodules which will require monitoring by PCPs/pulmonology. I am not completely convinced that patient had a CHF exacerbation (with proBNP of 1800 not significantly elevated and negative imaging findings). She probably has multiple comorbidities at play with systolic heart failure with markedly increased cardiomegaly as compared from previous CTs along with some chronic airway disease with some contribution from obstructive sleep apnea. Patient's BUN increased up to 33 and her bicarb was 40 high at on day of discharge though improved from previous values. It was most likely secondary to contraction alkalosis post diuresis. She also might have some underlying chronic hypercapnic respiratory failure because of suspected obstructive sleep apnea. Her calcium and magnesium supplements were continued. Hypocalcemia has been attributed to partial parathyroid hormone deficiency. Calcitrol and vitamin D supplementations were also continued. 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 She will require spot urine magnesium also 24 hour urine for magnesium excretion which should be pursued as an outpatient. She has been provided a referral for Dr. Tucker. She has history of atrial fibrillation which remained rate controlled on home regimen. Her home dose of levothyroxine was also continued during her stay. Her diabetes was managed by insulin sliding scale and she is being discharged on her home regimen of metformin. She was full code during her stay Allergies: Coded Allergies: NO KNOWN ALLERGIES (06/13/14) Pertinent Lab Results: EXAM TYPE: CAT - CT CHEST WO IV CONTRAST EXAMINATION: CT CHEST WITHOUT CONTRAST CLINICAL INFORMATION: Hypoxia. Evaluate for CHF versus pneumonia. COMPARISON: Previous chest x-rays most recent from earlier the same day and previous chest CT 01/06/2019 and 10/15/2012.. TECHNIQUE: Multidetector volumetric CT imaging of the chest was done. Axial MIP volume rendering provided. Sagittal and coronal reformatted images were obtained. Exam is limited due to artifact from respiratory motion. DLP: 235 mGy-cm. FINDINGS: MEDIA RELATIONS ASSOCIATE: Enlarged cardiac silhouette. LUNGS: There is chronic bronchiectasis and atelectasis in the medial paraspinal right lower lobe. There is evidence of mild more central right lower lobe airways disease with bronchial wall thickening. This is unchanged from previous exams. There is minimal subsegmental atelectasis or scarring in the posterior basal segment of the right lower lobe axial image 43 series 3 that is unchanged. Small pulmonary nodules are stable from previous exam. No evidence of pulmonary edema or acute pneumonia is seen. MEDIASTINUM: The heart is enlarged. There is no pericardial effusion. The thoracic aorta is normal in caliber. The pulmonary arteries are slightly prominent, main pulmonary artery measuring 3.1 cm similar to previous exam. There are no enlarged lymph nodes. PLEURA: There is no pleural effusion. No pleural mass or thickening. AXILLA: No chest wall mass or enlarged axillary lymph nodes are seen. UPPER ABDOMEN: There is fatty infiltration of the pancreas. There is a small peripheral calcification adjacent to the left lobe of the liver axial image 56 series 2 that is stable. Images through the upper abdomen are otherwise unremarkable. OSSEOUS STRUCTURES: There are degenerative changes of the spine. There is a lucent lesion in the manubrium that is stable. There are several small sclerotic lesions in the lower thoracic and upper lumbar spine that are stable and probably represent benign bone islands. IMPRESSION: No appreciable change from recent exam 01/06/2018. Chronic volume loss and bronchiectasis in the right lower lobe adjacent to the spine and evidence of more proximal chronic airways disease. No evidence of CHF or pneumonia. Stable small pulmonary nodules. Stable enlargement of the heart. Disposition Summary Disposition Principal Diagnosis: Acute on chronic systolic heart failure Additional Diagnosis: Metabolic alkalosis Discharge Disposition: home or self care Discharge Instructions General Discharge Information Code Status: Full Code Patient's Diet: Heart healthy Patient's Activity: As tolerated Follow-Up Instructions/Appts: -Patient will require follow-up with cardiology regarding adjustment of Lasix dose -She will require follow-up with pulmonology regarding sleep study and pulmonary function tests -She needs to follow-up with Endocrinology for further evaluation of hypomagnesemia and follow-up for partial parathyroid hormone deficiency -Her pulmonary nodules need to be monitored by either PCP or carrot grader inspector Medications at Discharge Discharge Medications: Stop taking the following medications: Spironolactone (Spironolactone) 25 MG TABLET ORAL DAILY Continue taking these medications: Rosuvastatin Calcium (Crestor) 20 MG TABLET 1 Tablet ORAL Every night Comments: GIVEN ATORVASTATIN IN HOSPITAL SUBSTITUTE LAST GIVEN 01/18/18 AT 4:39 PM Rivaroxaban (Xarelto) 20 MG TABLET 1 Tablet ORAL DAILY Instructions: with food Comments: Last Taken:01/19/18 Time:7:59 AM Albuterol Sulfate (Proair Hfa) 90 MCG HFA.AER.AD 2 Puff Inhale through mouth Q4H as needed for SOB/WHEEZING Comments: Last Taken:01/04/18 Time:8:06 AM VENTOLIN GIVEN IN HOSPITAL. Fluticasone Propionate (Flovent Hfa) 220 MCG AER.W.ADAP 1 PUFF Inhale through mouth TWICE DAILY Comments: Last Taken:01/19/18 Time:9:29 AM Metformin HCl (Glucophage) 850 MG TABLET 1 Tablet ORAL TWICE DAILY Metoprolol Tartrate (Lopressor) 50 MG TABLET 1.5 Tablet ORAL Every night Comments: Last Taken: Time: Magnesium Oxide (Magnesium) 400 MG CAPSULE 1 Capsule ORAL TWICE DAILY Comments: Last Taken:01/19/18 Time:7:59 AM Ferrous Sulfate (Ferrous Sulfate) 324 MG (65 MG IRON) TABLET.DR 1 Tablet ORAL DAILY Qty = 30 Comments: Last Taken:01/19/18 Time:7:58 AM Losartan Potassium (Losartan Potassium) 100 MG TABLET 1 Tablet ORAL DAILY Qty = 30 Comments: Last Taken:01/19/18 Time:7:58 AM Potassium Chloride (Potassium Chloride) 20 MEQ TAB.ER.PRT 1 Tablet ORAL DAILY Qty = 30 Comments: Last Taken:01/19/18 Time:0900 Diltiazem HCl (Diltiazem 24HR Cd) 300 MG CAP.ER.24H 1 Tablet ORAL DAILY Qty = 30 Instructions: . Comments: Last Taken:01/19/18 Time:7:58 AM Calcium Carbonate (Oysco-500) 500 MG CALCIUM (1,250 MG) TABLET 1 Tablet ORAL 4XDAILY Metoprolol Tartrate (Lopressor) 100 MG TABLET 1 Tablet ORAL Every Morning Comments: Last Taken:01/19/18 Time:1200 Calcitriol (Calcitriol) 0.5 MCG CAPSULE 1 Capsule ORAL DAILY Comments: Last Taken:01/19/18 Time:0900 Tramadol HCl (Tramadol HCl) 50 MG TABLET 0.5-1 Tablet ORAL EVERY SIX HOURS NEEDED as needed for PAIN Levothyroxine Sodium (Levothyroxine Sodium) 150 MCG TABLET 1 Tablet ORAL DAILY Qty = 90 Comments: Last Taken:01/19/18 Time:0700 Furosemide (Lasix) 80 MG TABLET 0.5 Tablet ORAL DAILY Comments: Last Taken:01/19/18 Time:0900 Copies To: Dani GRIMES,Sonal; Suri GRIMES,Wayne Coello; Tyler GRIMES,Kenn Olmstead; Garrett GRIMES,Anibal Lindquist Attending MD Review Statement Documenting Attending: Eddie GRIMES,Lewis
--- NOTE | 2018-01-19 08:29 | Patient Discharge Instructions ---
Discharge Instructions General Discharge Information You were seen/treated for: Shortness of breath Special Instructions: -Please follow-up with your heart doctor within 1 week of discharge -Please follow-up with your primary care doctor within 1 week of discharge -Please follow-up with the lung doctor referral has been provided for lung function testing to sleep study. You will also need monitoring of pulmonary nodules -Please use CPAP at night Diet Continue normal diet: Yes Activity Activity Self Limited: Yes Acute Coronary Syndrome Inclusion Criteria At DC or during hospital stay patient has or had the following: ACS DIAGNOSIS No Discharge Core Measures Meds if any: Prescribed or Continued at Discharge Meds if any: NOT Prescribed or Continued at Discharge Congestive Heart Failure Inclusion Criteria At DC or during hospital stay patient has or had the following: CHF DIAGNOSIS No Discharge Core Measures Meds if any: Prescribed or Continued at Discharge Meds if any: NOT Prescribed or Continued at Discharge Cerebrovascular accident Inclusion Criteria At DC or during hospital stay patient has or had the following: CVA/TIA Diagnosis No Discharge Core Measures Meds if any: Prescribed or Continued at Discharge Meds if any: NOT Prescribed or Continued at Discharge Venous thromboembolism Inclusion Criteria VTE Diagnosis No VTE Type NONE VTE Confirmed by (Test) NONE Discharge Core Measures - Per Current guidelines, there needs to be overlap - treatment for the first 5 days of Warfarin therapy. - If discharged on Warfarin prior to 5 days of - overlap therapy, the patient will need to be - assessed for post discharge needs including - *Post discharge parental anticoagulation - *Warfarin and/or parental anticoagulation education - *Follow up date to check INR post discharge At least 5 days overlap therapy as Inpatient No Meds if any: Prescribed or Continued at Discharge Note: Overlap Therapy is Warfarin and Anticoagulant Meds if any: NOT Prescribed or Continued at Discharge
--- NOTE | 2018-01-19 08:40 | PN- Pulmonary ---
Subjective HPI/Critical Care Issues: She was comfortable on room air. CT scan of his chest shows minimal volume loss and very focal localized bronchiectasis which is improved compared to prior CAT scans. There is marked increase in degree of cardiomegaly compared on serial CAT scans. She is diuresed over 5 L in the setting of an elevated BMP Objective Current Medications: Current Medications Sig/Diana Start time Last Medication Dose Route Stop Time Status Admin Acetaminophen 650 MG .STK-MED ONE 01/18 1857 DC PO 01/18 185 Acetaminophen 650 MG Q6P PRN 01/15 1315 AC 01/18 PO 1859 Albuterol Sulfate 3 ML BID 01/18 2100 AC 01/18 INH 1910 Albuterol Sulfate 2 PUF Q4H PRN 01/15 1130 AC INH Calcitriol 0.25 MCG DAILY 01/17 0900 AC 01/19 PO 0809 Calcium Carbonate 650 MG BID 01/17 0900 AC 01/19 PO 0809 Cholecalciferol 1,000 IU DAILY 01/17 1309 AC 01/19 PO 0808 Diltiazem HCl 300 MG DAILY 01/15 1128 AC 01/19 PO 0809 Ferrous Sulfate 325 MG BID 01/15 1128 AC 01/19 PO 0807 Fluticasone 2 PUF BID 01/15 1129 AC 01/19 Propionate INH 0809 Furosemide 40 MG DAILY 01/19 0900 AC 01/19 PO 0809 Furosemide 40 MG DAILY 01/18 0900 DC 01/18 IV 0807 Insulin Aspart 0 TIDAC 01/15 1700 AC 01/18 SC 1704 Levothyroxine Sodium 0.15 MG DAILY AC 01/15 1308 AC 01/19 PO 0556 Losartan Potassium 100 MG DAILY 01/15 1130 AC 01/19 PO 0808 Magnesium Oxide 400 MG BID 01/15 1130 AC 01/19 PO 0808 Metoprolol Succinate 50 MG DAILY 01/15 1133 AC 01/19 PO 0809 Patient Medication 1 ED ONE ONE 01/18 1530 DC Teaching ED 01/18 1531 Rivaroxaban 20 MG DAILY 01/15 2300 AC 01/19 PO 0808 Senna/Docusate Sodium 1 TAB AT BEDTIME PRN 01/15 1315 AC PO Tramadol HCl 50 MG Q6P PRN 01/15 1330 AC PO Tramadol HCl 25 MG Q6P PRN 01/15 1315 AC PO Vital Signs & I&O Last 24 Hrs of Vitals and I&O: Vital Signs Date Time Temp Pulse Resp B/P B/P Pulse O2 O2 Flow FiO2 Mean Ox Delivery Rate 01/19 0809 132/62 01/19 0808 132/64 01/19 0633 97.5 93 20 132/76 95 Room Air 01/19 0552 96 95 01/19 0014 86 93 01/18 2145 97.6 75 20 112/60 93 Room Air 01/18 2028 Room Air 01/18 1923 Room Air 01/18 1514 98.2 61 20 108/60 92 01/18 0945 94 Nasal 1.0L Cannula Intake & Output 01/19 1600 01/19 0800 01/19 0000 Intake Total Output Total 500 1000 Balance -500 -1000 Output, Urine 500 1000 Patient 180 lb Weight Weight Bed scale Measurement Method Respiratory oximetry 95% exam for chest shows clear lung garcia are no wheezes cardiac exam shows irregular rhythm Impression/Plan Impression/Plan Impression/Plan: 72-year-old presented with increasing shortness of breath. CAT scan shows minimal area volume loss and focal bronchiectasis. Patient has improved with diuresis of 5 L. She has untreated sleep apnea and likely has a degree of chronic hypercapnic respiratory failure and post diuresis metabolic alkalosis. Recommendations: Patient will need follow-up CT scan for pulmonary nodules repeat outpatient pulmonary function testing and sleep study. Patient appears euvolemic and with normalization of potassium metabolic alkalosis should correct.
--- NOTE | 2018-01-19 10:50 | PN- Cardiology ---
Subjective Subjective: Patient is ambulating without difficulty and offers no complaints today. Objective Vital Signs and I&Os Vital Signs Date Time Temp Pulse Resp B/P B/P Pulse O2 O2 Flow FiO2 Mean Ox Delivery Rate 01/19 0921 92 Room Air Room Air 01/19 0809 132/62 01/19 0808 132/64 01/19 0633 97.5 93 20 132/76 95 Room Air 01/19 0552 96 95 01/19 0014 86 93 01/18 2145 97.6 75 20 112/60 93 Room Air 01/18 2028 Room Air 01/18 1923 Room Air 01/18 1514 98.2 61 20 108/60 92 Intake & Output 01/19 1600 01/19 0800 01/19 0000 01/18 1600 01/18 0800 01/18 0000 Intake Total 420 200 120 Output Total 500 1000 1000 1100 Balance -500 -1000 -580 -900 120 Intake, IV 20 Intake, Oral 400 200 120 Output, Urine 500 1000 1000 1100 Patient 180 lb 179 lb Weight Weight Bed scale Measurement Method Physical Exam: General: no apparent distress. Alert. Eyes: No obvious scleral icterus. HEENT: No jugular venous distention or abnormal jugular venous pulsations. Cardiovascular: Normal intensity S1/S2. Irregular, 1 out of 6 systolic murmur Respiratory: Decreased air entry at the right base Abdomen: Soft, nontender with no guarding or rebound tenderness. Musculoskeletal: No clubbing or cyanosis noted; no edema Skin: warm Neurologic: No gross focal deficits noted. Current Medications: Current Medications Sig/Diana Start time Last Medication Dose Route Stop Time Status Admin Acetaminophen 650 MG .STK-MED ONE 01/18 185 DC PO 01/18 1858 Acetaminophen 650 MG Q6P PRN 01/15 1315 AC 01/18 PO 185 Albuterol Sulfate 3 ML BID 01/18 2100 AC 01/19 INH 0920 Albuterol Sulfate 2 PUF Q4H PRN 01/15 1130 AC INH Calcitriol 0.25 MCG DAILY 01/17 09 AC 01/19 PO 0809 Calcium Carbonate 650 MG BID 01/17 0900 AC 01/19 PO 0809 Cholecalciferol 1,000 IU DAILY 01/17 1309 AC 01/19 PO 0808 Diltiazem HCl 300 MG DAILY 01/15 1128 AC 01/19 PO 0809 Ferrous Sulfate 325 MG BID 01/15 1128 AC 01/19 PO 0807 Fluticasone 2 PUF BID 01/15 1129 AC 01/19 Propionate INH 0809 Furosemide 40 MG DAILY 01/19 0900 AC 01/19 PO 0809 Furosemide 40 MG DAILY 01/18 0900 DC 01/18 IV 0807 Insulin Aspart 0 TIDAC 01/15 1700 AC 01/18 SC 1704 Levothyroxine Sodium 0.15 MG DAILY AC 01/15 1308 AC 01/19 PO 0556 Losartan Potassium 100 MG DAILY 01/15 1130 AC 01/19 PO 0808 Magnesium Oxide 400 MG BID 01/15 1130 AC 01/19 PO 0808 Metoprolol Succinate 50 MG DAILY 01/15 1133 AC 01/19 PO 0809 Patient Medication 1 ED ONE ONE 01/18 1530 DC Teaching ED 01/18 1531 Rivaroxaban 20 MG DAILY 01/15 2300 AC 01/19 PO 0808 Senna/Docusate Sodium 1 TAB AT BEDTIME PRN 01/15 1315 AC PO Tramadol HCl 50 MG Q6P PRN 01/15 1330 AC PO Tramadol HCl 25 MG Q6P PRN 01/15 1315 AC PO Results Last 48 Hrs of Labs/Mics: Laboratory Tests 01/19/18 0627: Anion Gap 10, Estimated GFR > 60, BUN/Creatinine Ratio 41.3 H, Calcium 8.1 L, Magnesium 1.9, Albumin 3.7 01/18/18 0645: Anion Gap 11, Estimated GFR > 60, BUN/Creatinine Ratio 32.5 H, Magnesium 1.8 Recent Imaging Studies: Telemetry tracings were personally reviewed and showed atrial fibrillation Assessment/Plan Assessment/Plan 1. Hypomagnesemia 2. Chronic atrial fibrillation on Xarelto 3. History of hypertension/hyperlipidemia/diabetes mellitus 4. History of mitral regurgitation 5. History of prior thyroidectomy 6. Abnormal CT scan/CXR with evidence of bronchiectasis and hypercarbia by ABG Remains euvolemic on exam. BUN increased likely due to diuretics. Remains in atrial fibrillation with controlled ventricular response rate. Continue daily Xarelto for known atrial fibrillation. The patient should follow-up in our office within 1 week of discharge. Shakeel Fajardo MD [facility] Continue telemetry? No
[2018-01-19 12:23] VITALS: BP 138/70
== END 2018-01-19 13:05 | DRG 194 ==
LOC: DELPENDDIS → ERH 08:31 → ERHI 10:35 → 1NO 10:35 → ERHI 10:35 → ENRESERV 11:38 → EDBEDREQ 12:18 → ENTRNSPT 12:45 → ENRESERV 12:50 → ERHI 12:53 → CMPTRNSPT 13:06 → 1NO 13:44 → ENPENDDIS 01-18 08:16 → 1NO 01-19 13:05
PROVIDERS: Emergency Medicine; Student in an Organized Health Care Education/Training Program
DX: I11.0 Hypertensive heart disease with heart failure (principal); I50.33 Acute on chronic diastolic (congestive) heart failure; J96.01 Acute respiratory failure with hypoxia; I48.2 Chronic atrial fibrillation; I27.20 Pulmonary hypertension, unspecified; E66.9 Obesity, unspecified; Z68.41 Body mass index [BMI] 40.0-44.9, adult; R06.89 Other abnormalities of breathing; E11.9 Type 2 diabetes mellitus without complications; Z79.84 Long term (current) use of oral hypoglycemic drugs; E83.42 Hypomagnesemia; E83.51 Hypocalcemia; E20.9 Hypoparathyroidism, unspecified; J47.9 Bronchiectasis, uncomplicated; I50.32 Chronic diastolic (congestive) heart failure; E87.3 Alkalosis; J96.12 Chronic respiratory failure with hypercapnia; G47.30 Sleep apnea, unspecified; E05.20 Thyrotoxicosis with toxic multinodular goiter without thyrotoxic crisis or storm; I34.0 Nonrheumatic mitral (valve) insufficiency; Z79.01 Long term (current) use of anticoagulants; Z85.850 Personal history of malignant neoplasm of thyroid; E78.5 Hyperlipidemia, unspecified; J45.909 Unspecified asthma, uncomplicated
CPT/HCPCS: 1NP; 36415; 36592; 71045; 82436; 87040; 93005; 93010; 96374; J0696; J1940; J3490